=== PATIENT | female | born 1935 | race Caucasian/White ===

== ENCOUNTER → 2016-08-10 | Outpatient (CLI) | payer OTHER ==
[~2016-08-10] MED LIST: ADVIN50/60 INH; BENZ100C84 PO; CIPR-255 PO; DOXY100C PO; LEVA45AE INH; LEVO50TA PO; LORA-741 PO; MOME100A INH; PRED20TA PO
--- NOTE | 2016-08-10 15:01 | DIAGNOSTIC IMAGING REPORT ---
CHEST 2 VIEWS ROUTINE CLINICAL HISTORY: J20.9 Acute [id number] COMPARISON STUDY: 12/29/2013 FINDINGS: The cardiac and mediastinal contours are normal. There is no evidence of focal pulmonary consolidation. There is no evidence of failure. No pleural effusions are visualized.[ IMPRESSION: No active disease in the chest. Electronically signed by: Ben Espinoza M.D. 08/10/2016 2:58 PM Dictated Date/Time: 08/10/2016 2:58 PM
== END | disposition home or self-care (01) ==
LOC: C.RADBC 14:01
PROVIDERS: ATTEND Internal Medicine
DX: J20.9 Acute bronchitis, unspecified (principal)

== ENCOUNTER → 2016-09-07 | Outpatient (CLI) | payer OTHER ==
[2016-09-07 17:22] LABS: BASO % 0.5 %; BASO ABS # 0.03 K/uL (0-0.2); COMPLETE YES; EOS % 7.4 %; HEMATOCRIT 38.3 % (37-47); IG% 0.4 %; LYMPH % 22.1 %; LYMPH ABS # 1.26 K/uL (1.2-3.4); MEAN CELL VOLUME 90.1 fL (80-100); MEAN CORPUSCULAR HEMOGLOBIN 29.6 pg (25-34); MEAN CORPUSCULAR HGB CONC 32.9 g/dl (32-36); MEAN PLATELET VOLUME 10.4 fL (7.4-10.4); MONO % 10.9 %; NEUT % 58.7 %; PLATELET COUNT 264 K/uL (130-400); RED BLOOD COUNT 4.25 M/uL (4.2-5.4); WHITE BLOOD COUNT 5.69 K/uL (4.8-10.8)
[2016-09-07 18:16] LABS: BLOOD UREA NITROGEN 16 mg/dl (7-18); BUN/CREATININE RATIO 19.3 (10-20); CALCIUM 9.2 mg/dl (8.5-10.1); CARBON DIOXIDE 28 mmol/L (21-32); CHLORIDE 104 mmol/L (98-107); CREATININE 0.82 mg/dl (0.60-1.20); GLUCOSE 83 mg/dl (70-99); POTASSIUM 3.9 mmol/L (3.5-5.1); SODIUM 141 mmol/L (136-145)
== END | disposition home or self-care (01) ==
LOC: C.LABBC 15:33
PROVIDERS: ATTEND Internal Medicine
DX: R06.00 Dyspnea, unspecified (principal)

== ENCOUNTER → 2016-09-08 | Outpatient (CLI) | payer OTHER ==
[~2016-09-08] MED LIST changes: +OPTIRAY 320 IV PRN
--- NOTE | 2016-09-08 14:22 | DIAGNOSTIC IMAGING REPORT ---
CT ANGIOGRAM OF THE CHEST CLINICAL HISTORY: Cough and dyspnea. COMPARISON STUDY: Chest radiograph dated 08/10/2016. TECHNIQUE: Following the IV administration of 119 cc of Optiray 320, CT angiogram of the chest was performed from the upper abdomen to the thoracic inlet utilizing the pulmonary embolus protocol. Images are reviewed in the axial, sagittal, and coronal planes. 3-D MIPS images are created and assessed. IV contrast was administered without complication. The examination is moderately degraded by motion artifact. CT DOSE: 416.81 mGycm FINDINGS: Thyroid: Atrophic. Thoracic aorta: There is atherosclerotic calcification of the thoracic aorta, which is normal in caliber and demonstrates standard 3-vessel arch anatomy. No dissection is seen. Pulmonary vasculature: The pulmonary trunk is normal in caliber. There are no central filling defects identified in main, lobar, or proximal segmental pulmonary branches to suggest pulmonary embolus. Evaluation of the peripheral vessels is severely degraded by motion artifact. Heart: The heart is normal in size and configuration, and without pericardial effusion. Lungs and pleural spaces: Evaluation of the lung parenchyma is significantly degraded by respiratory motion artifact. Emphysema is noted. No airspace consolidation or pleural effusion is identified. The trachea and central airways appear clear. Mediastinum: There is no mediastinal lymphadenopathy. Rhonda: Clear. Axillae: There is no axillary lymphadenopathy. Upper abdomen: There is a small hiatal hernia. Partially visualized upper abdominal viscera is otherwise within normal limits. Skeletal structures: The skeletal structures are osteopenic. Degenerative change is present throughout the thoracic spine. No lytic or blastic bony lesions are seen. Soft tissues: The right breast is surgically absent. IMPRESSION: 1. Moderately motion degraded examination. 2. There is no evidence of central pulmonary embolus in the main, lobar, or proximal segmental pulmonary arteries. 3. Emphysema. 4. There is no airspace consolidation or pleural effusion. Electronically signed by: Eduard Hoffman M.D. 09/08/2016 2:21 PM Dictated Date/Time: 09/08/2016 2:17 PM
== END | disposition home or self-care (01) ==
LOC: C.CTS 13:43
PROVIDERS: ATTEND Internal Medicine
DX: R06.00 Dyspnea, unspecified (principal); R05 Cough

== ENCOUNTER 2016-09-14 17:09 | Emergency (ER) | payer OTHER ==
[~2016-09-14] VITALS: Ht 149.9 cm; Wt 65.0 kg
[~2016-09-14 17:09] MED LIST changes: -BENZ100C84 PO; -DOXY100C PO; -LEVA45AE INH; -MOME100A INH; -OPTIRAY 320 IV PRN; -PRED20TA PO
[2016-09-14 17:20] VITALS: TEMP 36.7; Ht 149.9 cm; Wt 65.0 kg
[2016-09-14] MEDS ORDERED: ALBUT/IPRATROP 3MG/0.5MG NEB 3 ML VIAL INH STA (17:49)
[2016-09-14] MEDS ORDERED: SODIUM CHLORIDE 0.9% 1000ML 1,000 ML IV STA (17:49)
[2016-09-14] MEDS ORDERED: METHYLPREDNISOLONE 125 MG VIAL IV STA (17:49)
[2016-09-14] MEDS ORDERED: BENZ100C84 PO (18:05)
[2016-09-14] MEDS ORDERED: LEVA45AE INH (18:05)
[2016-09-14] MEDS ORDERED: MOME100A INH (18:05)
[2016-09-14] MEDS ORDERED: LORA-741 PO (18:06)
--- NOTE | 2016-09-14 18:09 | EMERGENCY ROOM VISIT NOTE ---
History Report prepared by Radha: Yumiko Moore Under the Supervision of: Dr. Eduard Easton M.D. First contact with patient: 17:44 Chief Complaint: SHORTNESS OF BREATH Stated Complaint: SOB,BRONCHITIS,ASTHMA Nursing Triage Summary: I have asthma and bronchitis. I called the dr and they told me to come here. "I have been coughing a lot. it has been ongoing for the past several months" History of Present Illness The patient is a 81 year old female who presents to the Emergency Room with complaints of worsening shortness of breath over the past couple of months. Her shortness of breath is worsened with exertion. It seems to improve when she is outside in the cold air. She also complains of an occasionally productive persistent cough and central chest pain. The patient has followed up with her PCP and pulmonology since her symptoms began, but she has been getting progressively worse. She notes that she is able to hear herself wheezing. She has been on two different antibiotics, including Zithromax, as well as steroids since her symptoms began. She is not on an antibiotic or steroid currently. She did have some relief when she was on a steroid over a month ago. She has been given a Xopenex inhaler and Tessalon perles but they have not seemed to relieve her symptoms. She has been on maintenance inhalers for years prior to the onset of her current symptoms. She has also been using nebulizer treatments which do seem to help. The patient had a CBC and renal panel done on September 07 which were unremarkable. She had a CT chest on September 08 that did show some emphysema but no pneumonia or pulmonary emboli. Today she called her PCP and was referred to the ER. She is scheduled to see Dr. Shoemaker on September 22. Denies fever, leg swelling, or other complaints. She does not have a personal history of heart disease. She did have a flu shot this year. She has a history of COPD and asthma. She has never been a smoker. Source of History: patient Onset: a few months ago Position: other (global) Quality: other (shortness of breath) Timing: worsening Modifying Factors (Worsening): exertion Modifying Factors (Relieving): other (cold air,nebulizer) Associated Symptoms: + chest pain (central), + cough Review of Systems See HPI for pertinent positives & negatives. A total of 10 systems reviewed and were otherwise negative. Past Medical & Surgical Medical Problems: (1) Asthma (2) UTI (urinary tract infection) Family History Blood clots Cancer Diabetes mellitus Heart disease Social History Smoking Status: Never Smoker Alcohol Use: none Marital Status: Occupation Status: retired Current/Historical Medications Scheduled Benzonatate (Tessalon Perles), 100 MG PO Q8H Doxycycline Hyclate (Vibramycin), 100 MG PO BID Levothyroxine Sodium (Synthroid), 50 MCG PO DAILY Mometasone Furoate-Formoterol (Dulera 100/5 Mcg), 2 PUFFS INH BID Prednisone (Prednisone), 0 PO DAILY Scheduled PRN Levalbuterol Tartrate (Levalbuterol Tartrate Hfa), 2 PUFFS INH Q4 PRN for Wheezing Lorazepam (Ativan), 0.5 MG PO DAILY PRN for Anxiety Allergies Coded Allergies: Acetaminophen (Verified Allergy, Intermediate, 01/08/16) Physical Exam Vital Signs Date Time Temp Pulse Resp B/P Pulse Ox O2 Delivery O2 Flow Rate FiO2 09/14/16 19:48 96 20 168/89 96 09/14/16 19:08 96 20 168/89 96 Room Air 09/14/16 18:33 79 09/14/16 18:21 96 Room Air 09/14/16 17:22 98 Room Air 09/14/16 17:20 36.7 80 18 178/82 98 Room Air Physical Exam GENERAL: Patient is in no acute distress. HEENT: No acute trauma, normocephalic atraumatic, mucous membranes moist, no nasal congestion, no scleral icterus. NECK: No stridor, no adenopathy, no meningismus, trachea is midline. LUNGS: Wheezing bilaterally with diminished breath sounds, breath sounds are equal, dry cough is noted, no respiratory distress. HEART: Without murmurs gallops or rubs, regular rate and rhythm. ABDOMEN: Soft, nontender, bowel sounds positive, no hernias, no peritonitis. EXTREMITIES: No cyanosis or edema, full range of motion of all the joints without pain or difficulty, no signs for acute trauma. NEUROLOGIC: Oriented x 3, no acute motor or sensory deficits, no focal weakness. SKIN: No rash, no jaundice, no diaphoresis. Medical Decision & Procedures ER Provider Diagnostic Interpretation: Radiology results and stated below per my review and radiologist interpretation: TWO VIEW CHEST CLINICAL HISTORY: Dyspnea. FINDINGS: PA and lateral chest radiographs are compared to study dated 08/10/2016 and correlated with chest CT dated 09/08/16. The PA view is degraded by patient rotation. The cardiomediastinal silhouette is unremarkable. There is atherosclerotic calcification of the thoracic aorta. Emphysema and chronic interstitial thickening are similar to previous. Linear atelectasis versus scarring is noted in the left midlung. There is no airspace consolidation or pleural effusion. There is no pneumothorax. The skeletal structures are osteopenic. Degenerative change and scoliosis are noted in the thoracic spine bony thorax appears intact. IMPRESSION: Emphysema and chronic changes as above. There is no acute cardiopulmonary abnormality and there has been no significant change from recent prior studies. Electronically signed by: Eduard Hoffman M.D. 09/14/2016 7:05 PM Dictated Date/Time: 09/14/2016 7:03 PM Laboratory Results 09/14/16 18:35 Red Blood Count 4.42, Mean Corpuscular Volume 86.4, Mean Corpuscular Hemoglobin 29.2, Mean Corpuscular Hemoglobin Concent 33.8, Mean Platelet Volume 9.9, Neutrophils (%) (Auto) 50.2, Lymphocytes (%) (Auto) 29.3, Monocytes (%) (Auto) 8.7, Eosinophils (%) (Auto) 10.4, Basophils (%) (Auto) 0.9, Neutrophils # (Auto ) 3.29, Lymphocytes # (Auto) 1.92, Monocytes # (Auto) 0.57, Eosinophils # (Auto ) 0.68, Basophils # (Auto) 0.06 09/14/16 18:35 Test 09/14/16 18:12 09/14/16 18:35 Influenza Type A Antigen Neg for Influ A (NEG) Influenza Type B Antigen Neg for Influ B (NEG) White Blood Count 6.55 K/uL (4.8-10.8) Red Blood Count 4.42 M/uL (4.2-5.4) Hemoglobin 12.9 g/dL (12.0-16.0) Hematocrit 38.2 % (37-47) Mean Corpuscular Volume 86.4 fL (80-100) Mean Corpuscular Hemoglobin 29.2 pg (25-34) Mean Corpuscular Hemoglobin Concent 33.8 g/dl (32-36) Platelet Count 248 K/uL (130-400) Mean Platelet Volume 9.9 fL (7.4-10.4) Neutrophils (%) (Auto) 50.2 % Lymphocytes (%) (Auto) 29.3 % Monocytes (%) (Auto) 8.7 % Eosinophils (%) (Auto) 10.4 % Basophils (%) (Auto) 0.9 % Neutrophils # (Auto) 3.29 K/uL (1.4-6.5) Lymphocytes # (Auto) 1.92 K/uL (1.2-3.4) Monocytes # (Auto) 0.57 K/uL (0.11-0.59) Eosinophils # (Auto) 0.68 K/uL (0-0.5) Basophils # (Auto) 0.06 K/uL (0-0.2) RDW Standard Deviation 46.3 fL (36.4-46.3) RDW Coefficient of Variation 14.6 % (11.5-14.5) Immature Granulocyte % (Auto) 0.5 % Immature Granulocyte # (Auto) 0.03 K/uL (0.00-0.02) Anion Gap 12.0 mmol/L (3-11) Est Creatinine Clear Calc Drug Dose 48.6 ml/min Estimated GFR () 85.1 Estimated GFR (Non- 73.4 BUN/Creatinine Ratio 21.0 (10-20) Calcium Level 9.1 mg/dl (8.5-10.1) Troponin I < 0.015 ng/ml (0-0.045) Laboratory results reviewed by me. Medications Administered Medications (Trade) Dose Ordered Sig/Ovidio Route Start Time Stop Time Status Last Admin Dose Admin Sodium Chloride (Nss 1000ml) 1,000 ml @ 200 mls/hr Q5H STAT IV 09/14/16 17:49 09/14/16 20:02 DC 09/14/16 18:58 200 MLS/HR Methylprednisolone Sodium Succinate (Solu-Medrol IV) 60 mg NOW STAT IV 09/14/16 17:49 09/14/16 17:54 DC 09/14/16 18:58 60 MG Albuterol/ Ipratropium (Duoneb) 3 ml NOW STAT INH 09/14/16 17:49 09/14/16 17:54 DC 09/14/16 18:59 3 ML Doxycycline Hyclate (Vibramycin Cap) 100 mg ONE ONCE PO 09/14/16 19:15 09/14/16 19:16 DC 09/14/16 19:29 100 MG ECG Indication: SOB/dyspnea Rate (beats per minute): 76 Rhythm: normal sinus Findings: no acute ischemic change, no ectopy ED Course 1744: The patient was evaluated in room B5. A complete history and physical exam was performed. 1748: Ordered DuoNeb 3 ml INH, Solu-Medrol 60 mg IV, NSS 1000 ml @ 200 mls/hr IV. 1914: Ordered Vibramycin Cap 100 mg PO. 1919: Reevaluated the patient. She was feeling better. Discussed results and discharge instructions: She verbalized understanding and agreement. The patient is ready for discharge. Medical Decision Differentials include acute bronchitis, exacerbation of COPD, cardiac ischemia, pneumonia, CHF, PE, failed outpatient treatment. There is no leukocytosis or concerning anemia. No significant electrolyte abnormality or kidney failure. Influenza testing is negative. EKG shows a normal sinus rhythm with a rate of 76, no acute ischemia. Cardiac enzyme testing times one is not consistent with acute cardiac injury. Chest x-ray shows no pneumonia or CHF. Emphysema was noted. The patient was given a DuoNeb, she received IV saline. She was given oral doxycycline. The patient is not hypoxic, she is not febrile. She is being discharged on a prednisone taper, oral doxycycline, frequent bronchodilator use. She was encouraged to follow with her doctors office and return here for worsening symptoms. Impression Primary Impression: Acute bronchitis Additional Impression: COPD exacerbation Scribe Attestation The scribe's documentation has been prepared under my direction and personally reviewed by me in its entirety. I confirm that the note above accurately reflects all work, treatment, procedures, and medical decision making performed by me. Departure Information Dispostion Home / Self-Care Prescriptions Prednisone (Prednisone) 20 Mg Tab 0 PO DAILY, #18 TAB 3 DAILY FOR 3 DAYS, THEN 2 DAILY FOR 3 DAYS, THEN 1 DAILY FOR 3 DAYS. Prov: Eduard Easton M.D. 09/14/16 Doxycycline Hyclate (VIBRAMYCIN) 100 Mg Cap 100 MG PO BID for 10 Days, #20 CAP Prov: Eduard Easton M.D. 09/14/16 Referrals Jeffrey Pimentel M.D. (PCP) Patient Instructions My [facility] Additional Instructions fluids rest albuterol nebulizer or xopenex inhaler every 4 hours doxycycline 2x per day for 10 days prednisone as directed follow with micaela galindo this week return if symptoms worsen Problem Qualifiers
[2016-09-14 18:21] VITALS: O2SAT 96
[2016-09-14 18:50] LABS: BASO % 0.9 %; BASO ABS # 0.06 K/uL (0-0.2); COMPLETE YES; EOS % 10.4 %; HEMATOCRIT 38.2 % (37-47); IG% 0.5 %; LYMPH % 29.3 %; LYMPH ABS # 1.92 K/uL (1.2-3.4); MEAN CELL VOLUME 86.4 fL (80-100); MEAN CORPUSCULAR HEMOGLOBIN 29.2 pg (25-34); MEAN CORPUSCULAR HGB CONC 33.8 g/dl (32-36); MEAN PLATELET VOLUME 9.9 fL (7.4-10.4); MONO % 8.7 %; NEUT % 50.2 %; PLATELET COUNT 248 K/uL (130-400); RED BLOOD COUNT 4.42 M/uL (4.2-5.4); WHITE BLOOD COUNT 6.55 K/uL (4.8-10.8)
--- NOTE | 2016-09-14 19:06 | DIAGNOSTIC IMAGING REPORT ---
TWO VIEW CHEST CLINICAL HISTORY: Dyspnea. FINDINGS: PA and lateral chest radiographs are compared to study dated 08/10/2016 and correlated with chest CT dated 09/08/16. The PA view is degraded by patient rotation. The cardiomediastinal silhouette is unremarkable. There is atherosclerotic calcification of the thoracic aorta. Emphysema and chronic interstitial thickening are similar to previous. Linear atelectasis versus scarring is noted in the left midlung. There is no airspace consolidation or pleural effusion. There is no pneumothorax. The skeletal structures are osteopenic. Degenerative change and scoliosis are noted in the thoracic spine bony thorax appears intact. IMPRESSION: Emphysema and chronic changes as above. There is no acute cardiopulmonary abnormality and there has been no significant change from recent prior studies. Electronically signed by: Eduard Hoffman M.D. 09/14/2016 7:05 PM Dictated Date/Time: 09/14/2016 7:03 PM
[2016-09-14 19:07] LABS: BLOOD UREA NITROGEN 16 mg/dl (7-18); CALCIUM 9.1 mg/dl (8.5-10.1); CARBON DIOXIDE 24 mmol/L (21-32); CHLORIDE 104 mmol/L (98-107); CREATININE 0.77 mg/dl (0.60-1.20); GLUCOSE 80 mg/dl (70-99); SODIUM 140 mmol/L (136-145)
[2016-09-14] MEDS ORDERED: DOXYCYCLINE HYCLATE 100 MG CAP PO ONE (19:15)
[2016-09-14] MEDS ORDERED: DOXY100C PO (19:28)
[2016-09-14] MEDS ORDERED: PRED20TA PO (19:28)
[2016-09-14 19:48] VITALS: BP 168/89; PULSE 96; O2SAT 96
== END 2016-09-14 19:49 | disposition home or self-care (01) ==
LOC: C.EDB 17:10
DX: J44.1 Chronic obstructive pulmonary disease with (acute) exacerbation (principal); J45.909 Unspecified asthma, uncomplicated

== ENCOUNTER → 2016-10-09 | Outpatient (CLI) | payer OTHER ==
[~2016-10-09] MED LIST changes: -ADVIN50/60 INH; +BENZ100C84 PO; -CIPR-255 PO; +LEVA45AE INH; +MOME100A INH; +PRED20TA PO
--- NOTE | 2016-10-09 12:16 | DIAGNOSTIC IMAGING REPORT ---
CT SINUSES-MAXILLOFACIAL W/O CLINICAL HISTORY: Cough. Possible sinusitis. COMPARISON STUDY: None. TECHNIQUE: CT scan of the paranasal sinuses was performed in the axial plane. Coronal reconstructed images were obtained and reviewed. CT DOSE: 518.34 mGy.cm FINDINGS: No orbital masses are visualized. There is no hydrocephalus. There is mild mucosal thickening involving both maxillary sinuses. There is mild mucosal thickening within the sphenoid. There is minimal mucosal thickening within the ethmoid air cells. There is moderate mucosal thickening within hypoplastic frontal sinuses. There are no air-fluid levels identified. The right ostiomeatal unit appears patent. The infundibular and ostial portions left ostiomeatal unit are occluded. The mastoid air cells are symmetrically aerated. The middle ear cavities are well aerated. IMPRESSION: 1. No evidence of acute sinusitis 2. Mild pansinus mucosal thickening 3. The ostial and infundibular portions of the left ostiomeatal unit are occluded by soft tissue. Electronically signed by: Ben Espinoza M.D. 10/09/2016 12:15 PM Dictated Date/Time: 10/09/2016 12:12 PM
== END | disposition home or self-care (01) ==
LOC: C.CTS 11:55
PROVIDERS: ATTEND Internal Medicine
DX: R05 Cough (principal)

== ENCOUNTER → 2017-03-25 | Outpatient (CLI) | payer OTHER ==
[~2017-03-25] MED LIST changes: -PRED20TA PO
--- NOTE | 2017-03-26 16:08 | MAMMOGRAPHY REPORT ---
UNILATERAL LEFT DIGITAL SCREENING MAMMOGRAM TOMOSYNTHESIS WITH CAD: 03/25/2017 CLINICAL HISTORY: Routine screening. Patient has no complaints. TECHNIQUE: Breast tomosynthesis in addition to standard 2D mammography was performed. Current study was also evaluated with a Computer Aided Detection (CAD) system. Left CC and MLO 2-D and tomosynthes is images were obtained. COMPARISON: Comparison is made to exam dated: Outside prior mammograms dated 05/21/2014, 04/10/2013, , [facility] BREAST COMPOSITION: There are scattered areas of fibroglandular density in the left breast. FINDINGS: There are no suspicious masses, calcifications, or areas of architectural distortion noted within the left breast. There has been no significant interval change compared to prior exams. Sca ttered asymmetries and benign-appearing calcifications are stable. IMPRESSION: ACR BI-RADS CATEGORY 2: BENIGN There is no mammographic evidence of malignancy in the left breast. A 1 year screening mammogram is r ecommended. The patient will receive written notification of the results. Approximately 10% of breast cancers are not detected with mammography. A negative mammographic report should not delay biopsy if a clinically suggestive mass is present. Yara Garcia M.D. ah/:03/26/2017 13:47:07 Supervisor [employer]: Peg JOHNSON(Sven)(Flora)([place]), [facility] letter sent: Normal 1/2 BI-RADS Code: ACR BI-RADS Category 2: Benign
== END | disposition home or self-care (01) ==
LOC: C.MAMM 13:27
PROVIDERS: ATTEND Internal Medicine
DX: Z12.31 Encounter for screening mammogram for malignant neoplasm of breast (principal); Z90.11 Acquired absence of right breast and nipple

== ENCOUNTER → 2017-04-09 | Outpatient (CLI) | payer OTHER | END | disposition home or self-care (01) | LOC: C.LABBC 13:14 | PROVIDERS: ATTEND Nurse Practitioner Family | DX: N39.46 Mixed incontinence (principal); N39.0 Urinary tract infection, site not specified ==

== ENCOUNTER 2017-05-24 10:04 | Emergency (ER) | payer OTHER ==
[~2017-05-24] VITALS: Ht 149.9 cm; Wt 64.8 kg
[2017-05-24 10:08] VITALS: TEMP 36.9
[2017-05-24] MEDS ORDERED: SODIUM CHLORIDE 0.9% 1000ML 1,000 ML IV STA (10:42)
[2017-05-24] MEDS ORDERED: LEVAQUIN 750MG / 150ML D5W IV STA (10:42)
[2017-05-24] MEDS ORDERED: ALBUT/IPRATROP 3MG/0.5MG NEB 3 ML VIAL INH STA (10:42)
--- NOTE | 2017-05-24 11:10 | DIAGNOSTIC IMAGING REPORT ---
CHEST ONE VIEW PORTABLE HISTORY: 82 years-old Female EVALUATE RESPIRATORY DISTRESS.DYSPNEA acute respiratory distress COMPARISON: Chest radiograph 09/14/2016 TECHNIQUE: Portable upright AP view of the chest FINDINGS: Cardiac silhouette is within normal limits. There is atherosclerosis of the aorta. Linear subsegmental lateral left midlung opacity is unchanged suggesting atelectasis or scarring. Emphysema with chronic background interstitial coarsening redemonstrated. No pneumothorax, pleural effusion, focal airspace consolidation or overt pulmonary edema. Bones are grossly intact. IMPRESSION: Emphysema and chronic changes without acute cardiopulmonary process. The above report was generated using voice recognition software. It may contain grammatical, syntax or spelling errors. Electronically signed by: Akbar Hurst M.D. 05/24/2017 11:09 AM Dictated Date/Time: 05/24/2017 11:05 AM
[2017-05-24 11:13] LABS: BASO % 0.6 %; BASO ABS # 0.04 K/uL (0-0.2); COMPLETE YES; EOS % 6.7 %; HEMATOCRIT 35.4 % (37-47); IG% 0.3 %; LYMPH % 10.1 %; LYMPH ABS # 0.63 K/uL (1.2-3.4); MEAN CELL VOLUME 88.1 fL (80-100); MEAN CORPUSCULAR HEMOGLOBIN 29.4 pg (25-34); MEAN CORPUSCULAR HGB CONC 33.3 g/dl (32-36); MEAN PLATELET VOLUME 9.5 fL (7.4-10.4); NEUT % 74.3 %; PLATELET COUNT 225 K/uL (130-400); RED BLOOD COUNT 4.02 M/uL (4.2-5.4); WHITE BLOOD COUNT 6.25 K/uL (4.8-10.8)
[2017-05-24 11:19] VITALS: O2SAT 96; Ht 149.9 cm; Wt 64.8 kg
[2017-05-24 11:20] LABS: PARTIAL THROMBOPLASTIN RATIO 1.1; PROTHROMBIN TIME (PATIENT) 10.9 SECONDS (9.0-12.0)
[2017-05-24 11:22] LABS: ALT/SGPT 24 U/L (12-78); BLOOD UREA NITROGEN 14 mg/dl (7-18); BUN/CREATININE RATIO 17.8 (10-20); CALCIUM 9.4 mg/dl (8.5-10.1); CARBON DIOXIDE 28 mmol/L (21-32); CHLORIDE 102 mmol/L (98-107); CREATININE 0.78 mg/dl (0.60-1.20); GLUCOSE 88 mg/dl (70-99); POTASSIUM 3.8 mmol/L (3.5-5.1); SODIUM 137 mmol/L (136-145)
[2017-05-24 11:28] LABS: ALB/GLOB RATIO 1.1 (0.9-2); ALKALINE PHOSPHATASE 107 U/L (45-117); AST/SGOT 24 U/L (15-37)
[2017-05-24] MEDS ORDERED: MOME200A INH (12:00)
[2017-05-24] MEDS ORDERED: XPNINS INH (12:00)
[2017-05-24] MEDS ORDERED: LEVA45AE INH (12:00)
[2017-05-24] MEDS ORDERED: VITACAP26 PO (12:00)
[2017-05-24] MEDS ORDERED: MULT-506 PO (12:00)
[2017-05-24] MEDS ORDERED: BENZONATATE 100MG CAP PO ONE (12:45)
[2017-05-24] MEDS ORDERED: BENZ100C18 PO (12:48)
[2017-05-24] MEDS ORDERED: PRED-603 PEG (12:48)
[2017-05-24] MEDS ORDERED: LEVO-366 PO (12:48)
[2017-05-24 13:07] VITALS: BP 137/73; PULSE 85; O2SAT 96
--- NOTE | 2017-05-24 16:50 | EMERGENCY ROOM VISIT NOTE ---
History Report prepared by Radha: Yusuf Kent Under the Supervision of: Dr. Brendan Bhat D.O. First contact with patient: 10:29 Chief Complaint: RESPIRATORY PROBLEMS Stated Complaint: ASTHMA, DIFFICULTY BREATHING Nursing Triage Summary: Pt reports difficulty breathing for a couple weeks, worse since the weekend. Sinus congestion. Cough of yellow. Fever. Using ibuprofen, neb without relief. Hx of asthma. History of Present Illness The patient is a 82 year old female who presents to the Emergency Room with complaints of a persistent cough beginning three days ago. Her cough produces a yellow sputum. She notes "I always have a cough, but now it is worse". She has a history of COPD and asthma. The patient's symptoms began with a runny nose two weeks ago. She also complains of sinus congestion, SOB and fever of 101 degrees. She notes that she took her temperature with an unused rectal thermometer orally. The patient vomited two days ago and has not vomited again since. She denies diarrhea or chest pain. Source of History: patient Onset: Three days ago Quality: other (productive cough) Timing: other (persistent) Associated Symptoms: + fevers (101 degrees), + SOB, + vomiting, No chest pain, No diarrhea Note: Additional symptoms: runny nose and sinus congestion. Review of Systems See HPI for pertinent positives & negatives. A total of 10 systems reviewed and were otherwise negative. Past Medical & Surgical Medical Problems: (1) Asthma (2) UTI (urinary tract infection) Family History Blood clots Cancer Diabetes mellitus Heart disease Social History Smoking Status: Never Smoker Alcohol Use: none Marital Status: Occupation Status: retired Current/Historical Medications Scheduled Benzonatate (Tessalon Perles), 100 MG PO TID Levofloxacin (Levaquin), 500 MG PO DAILY Levothyroxine Sodium (Synthroid), 50 MCG PO DAILY Mometasone Furoate-Formoterol (Dulera 200/5 Mcg), 2 PUFFS INH BID Multivitamin (Multivitamin), 1 TAB PO DAILY Prednisone (Deltasone), 20 MG PEG DAILY Vitamins C & E (Vitamin C), 1 CAP PO DAILY Scheduled PRN Levalbuterol (Levalbuterol HCl), 1 VIAL INH Q4H PRN for SOB/Wheezing Levalbuterol Tartrate (Levalbuterol Tartrate Hfa), 2 PUFFS INH Q4H PRN for SOB/ Wheezing Lorazepam (Ativan), 0.5 MG PO DAILY PRN for Anxiety Allergies Coded Allergies: Acetaminophen (Verified Allergy, Intermediate, 01/08/16) Physical Exam Vital Signs Date Time Temp Pulse Resp B/P (MAP) Pulse Ox O2 Delivery O2 Flow Rate FiO2 05/24/17 13:07 85 20 137/73 96 05/24/17 12:30 87 18 154/89 97 Room Air 05/24/17 11:19 96 Room Air 05/24/17 11:08 87 05/24/17 11:05 81 16 145/67 97 05/24/17 11:05 97 Room Air 05/24/17 10:08 36.9 82 20 165/71 96 Room Air Physical Exam GENERAL: Sitting up in bed, productive cough noted, alert, well appearing, well nourished, no distress, non-toxic EYE EXAM: normal conjunctiva, PERRL and EOM's grossly intact OROPHARYNX: no exudate, no erythema, lips, buccal mucosa, and tongue normal and mucous membranes are moist NECK: supple, no nuchal rigidity, no adenopathy, non-tender. No JVD. LUNGS: Clear to auscultation. Normal chest wall mechanics HEART: no murmurs, S1 normal and S2 normal ABDOMEN: abdomen soft, non-tender, normo-active bowel sounds, no masses, no rebound or guarding. BACK: Back is symmetrical on inspection and there is no deformity, no midline tenderness, no CVA tenderness. SKIN: no rashes and no bruising UPPER EXTREMITIES: upper extremities are grossly normal. LOWER EXTREMITIES: No pitting edema. Calves are equal bilaterally. Right anterior drummond with erythema which is tender to palpation. 4 by 3 inches with scratch lozano. NEURO EXAM: Normal sensorium, cranial nerves II-XII grossly intact, normal speech, no gross weakness of arms, no gross weakness of legs. Medical Decision & Procedures ER Provider Diagnostic Interpretation: Radiology results as stated below per my review and the radiologist's interpretation: CHEST ONE VIEW PORTABLE FINDINGS: Cardiac silhouette is within normal limits. There is atherosclerosis of the aorta. Linear subsegmental lateral left midlung opacity is unchanged suggesting atelectasis or scarring. Emphysema with chronic background interstitial coarsening redemonstrated. No pneumothorax, pleural effusion, focal airspace consolidation or overt pulmonary edema. Bones are grossly intact. IMPRESSION: Emphysema and chronic changes without acute cardiopulmonary process. The above report was generated using voice recognition software. It may contain grammatical, syntax or spelling errors. Electronically signed by: Akbar Hurst M.D. 05/24/2017 11:09 AM Laboratory Results 05/24/17 10:51 Red Blood Count 4.02, Mean Corpuscular Volume 88.1, Mean Corpuscular Hemoglobin 29.4, Mean Corpuscular Hemoglobin Concent 33.3, Mean Platelet Volume 9.5, Neutrophils (%) (Auto) 74.3, Lymphocytes (%) (Auto) 10.1, Monocytes (%) (Auto) 8.0, Eosinophils (%) (Auto) 6.7, Basophils (%) (Auto) 0.6, Neutrophils # (Auto) 4.64, Lymphocytes # (Auto) 0.63, Monocytes # (Auto) 0.50, Eosinophils # (Auto) 0.42, Basophils # (Auto) 0.04 05/24/17 10:51 Test 05/24/17 10:51 05/24/17 11:25 White Blood Count 6.25 K/uL (4.8-10.8) Red Blood Count 4.02 M/uL (4.2-5.4) Hemoglobin 11.8 g/dL (12.0-16.0) Hematocrit 35.4 % (37-47) Mean Corpuscular Volume 88.1 fL (80-100) Mean Corpuscular Hemoglobin 29.4 pg (25-34) Mean Corpuscular Hemoglobin Concent 33.3 g/dl (32-36) Platelet Count 225 K/uL (130-400) Mean Platelet Volume 9.5 fL (7.4-10.4) Neutrophils (%) (Auto) 74.3 % Lymphocytes (%) (Auto) 10.1 % Monocytes (%) (Auto) 8.0 % Eosinophils (%) (Auto) 6.7 % Basophils (%) (Auto) 0.6 % Neutrophils # (Auto) 4.64 K/uL (1.4-6.5) Lymphocytes # (Auto) 0.63 K/uL (1.2-3.4) Monocytes # (Auto) 0.50 K/uL (0.11-0.59) Eosinophils # (Auto) 0.42 K/uL (0-0.5) Basophils # (Auto) 0.04 K/uL (0-0.2) RDW Standard Deviation 46.7 fL (36.4-46.3) RDW Coefficient of Variation 14.5 % (11.5-14.5) Immature Granulocyte % (Auto) 0.3 % Immature Granulocyte # (Auto) 0.02 K/uL (0.00-0.02) Prothrombin Time 10.9 SECONDS (9.0-12.0) Prothromb Time International Ratio 1.0 (0.9-1.1) Activated Partial Thromboplast Time 29.4 SECONDS (21.0-31.0) Partial Thromboplastin Ratio 1.1 Anion Gap 7.0 mmol/L (3-11) Est Creatinine Clear Calc Drug Dose 47.1 ml/min Estimated GFR () 83.2 Estimated GFR (Non- 71.8 BUN/Creatinine Ratio 17.8 (10-20) Calcium Level 9.4 mg/dl (8.5-10.1) Total Bilirubin 0.5 mg/dl (0.2-1) Aspartate Amino Transf (AST/SGOT) 24 U/L (15-37) Alanine Aminotransferase (ALT/SGPT) 24 U/L (12-78) Alkaline Phosphatase 107 U/L (45-117) Troponin I < 0.015 ng/ml (0-0.045) Total Protein 6.6 gm/dl (6.4-8.2) Albumin 3.5 gm/dl (3.4-5.0) Globulin 3.1 gm/dl (2.5-4.0) Albumin/Globulin Ratio 1.1 (0.9-2) Influenza Type A Antigen Neg for Influ A (NEG) Influenza Type B Antigen Neg for Influ B (NEG) Laboratory results per my review. Medications Administered Medications (Trade) Dose Ordered Sig/Ovidio Route Start Time Stop Time Status Last Admin Dose Admin Albuterol/ Ipratropium (Duoneb) 3 ml NOW STAT INH 05/24/17 10:42 05/24/17 10:44 DC 05/24/17 11:21 3 ML Levofloxacin (Levaquin / D5W) 750 mg NOW STAT IV 05/24/17 10:42 05/24/17 10:44 DC 05/24/17 11:24 750 MG Sodium Chloride 1,000 ml @ 999 mls/hr Q1H1M STAT IV 05/24/17 10:42 05/24/17 11:42 DC 05/24/17 11:24 999 MLS/HR Prednisone (PredniSONE TAB) 40 mg NOW STAT PO 05/24/17 10:43 05/24/17 10:44 DC 05/24/17 11:22 40 MG Benzonatate (Tessalon Perles Cap) 100 mg NOW ONCE PO 05/24/17 12:45 05/24/17 12:46 DC 05/24/17 13:04 100 MG ECG Indication: SOB/dyspnea Rate (beats per minute): 82 Rhythm: sinus rhythm Findings: 1st degree AV block, no ectopy, other (LAD) ED Course ED COURSE: Vital signs were reviewed and showed hypertension The patients medical record was reviewed The above diagnostic studies were performed and reviewed. ED treatments and interventions as stated above. 1035: The patient was evaluated in room B6. A complete history and physical examination was performed. 1042: Ordered Sodium Chloride 1000 ml @ 999 mls/hr IV, Levaquin /D5W 750 mg IV, DuoNeb 3 mL INH, Prednisone Tab 40 mg PO. 1140: I reassessed the patient. She would like to go home now. After discussion , she agreed to receiving her antibiotics first. 1245: Ordered Tessalon Perles 100 mg PO. 1248: Upon reevaluation, the patient is resting comfortably. I discussed my findings with the patient and she understands and agrees with the treatment plan. Based on the patients age, coexisting illnesses, exam and lab findings the decision to treat as an outpatient was made. The patient remained stable while under my care. The patient appeared well at the time of discharge. Medical Decision Differential diagnoses includes but is not limited to pneumonia, bronchitis, COPD/Asthma exacerbation, pneumothorax, pulmonary embolism, congestive heart failure, acute coronary syndrome. Patient is an 82-year-old female who presents to ER with a yellow productive cough and sinus congestion. She does admit to having a temperature last night of 101. She also complains of a runny nose. She has a history of Asthma. She did have vomiting and diarrhea Wednesday which has completely resolved. CBC all BMP, LFTs, bilirubin and troponin were unremarkable. She denies any chest pain. INR was unremarkable. Flu was negative. Chest x-ray shows no focal infiltrate. Based on her symptoms she was treated as a bronchitis. Patient requested discharge on multiple occasions. She was feeling significantly better following steroids, antibiotics, fluids and no treatment. She was discharged follow-up with PCP. EKG was unremarkable. Discussed with Pt concerning signs and symptoms to watch out for. Pt was instructed to follow up with their PCP and discussed with the patient their option to return to the ED at anytime for persistent or worsening symptoms. The appropriate anticipatory guidance and out-patient management, including indications for return to the emergency department, were explained at length to the patient and understood. Medication Reconcilliation Current Medication List: was personally reviewed by me Blood Pressure Screening Patient's blood pressure: Elevated blood pressure Blood pressure disposition: Referred to PCP Impression Primary Impression: Bronchitis Additional Impression: Asthma exacerbation Scribe Attestation The scribe's documentation has been prepared under my direction and personally reviewed by me in its entirety. I confirm that the note above accurately reflects all work, treatment, procedures, and medical decision making performed by me. Departure Information Dispostion Home / Self-Care Prescriptions Prednisone (Deltasone) 20 Mg Tab 20 MG PEG DAILY for 5 Days Prov: Brendan Bhta, DO 05/24/17 Levofloxacin (Levaquin) 500 Mg Tab 500 MG PO DAILY for 9 Days, TAB Prov: Brendan Bhat, DO 05/24/17 Benzonatate (TESSALON PERLES) 100 Mg Cap 100 MG PO TID, #30 CAP Prov: Brendan Bhat, DO 05/24/17 Referrals Jeffrey Pimentel M.D. (PCP) Forms HOME CARE DOCUMENTATION FORM, IMPORTANT VISIT INFORMATION, WORK / SCHOOL INSTRUCTIONS Patient Instructions ED Bronchitis Asthmatic, My [facility] Additional Instructions Please follow up with your primary care doctor with in the next 24 hours. Any worsening of your symptoms, please return to the ED immediately. This includes any fevers greater than 100.4, worsening pain, chest pain, shortness breath, persistent nausea, vomiting, unable to eat or drink, or any other concerning signs or symptoms from your standpoint. Please take the prescription for antibiotics. Please take Tessalon Perles as needed for coughing. Please take steroids as prescribed. Problem Qualifiers Additional Impression: Asthma exacerbation Asthma severity: unspecified severity Asthma persistence: unspecified Qualified Codes: J45.901 - Unspecified asthma with (acute) exacerbation
== END 2017-05-24 13:08 | disposition home or self-care (01) ==
LOC: C.EDB 10:05
DX: J45.901 Unspecified asthma with (acute) exacerbation (principal); J40 Bronchitis, not specified as acute or chronic; I44.0 Atrioventricular block, first degree; Z87.440 Personal history of urinary (tract) infections; Z79.899 Other long term (current) drug therapy; Z88.6 Allergy status to analgesic agent; Z80.9 Family history of malignant neoplasm, unspecified; Z83.3 Family history of diabetes mellitus; Z82.49 Family history of ischemic heart disease and other diseases of the circulatory system; Z83.2 Family history of diseases of the blood and blood-forming organs and certain disorders involving the immune mechanism

== ENCOUNTER 2017-09-18 09:51 | Emergency (ER) | payer OTHER ==
[~2017-09-18 09:51] MED LIST changes: -BENZ100C84 PO; -MOME100A INH; +MOME200A INH; +MULT-506 PO; +PRED-603 PEG; +VITACAP26 PO; +XPNINS INH
[2017-09-18 09:53] VITALS: TEMP 36.7; Ht 152.4 cm
[2017-09-18] MEDS ORDERED: ONDANSETRON INJ 2 MG/ML 2 ML VIAL IV STA (10:14)
[2017-09-18] MEDS ORDERED: MoRPHine SULFATE 4 MG/ML 1 ML CARP\\VIAL IV STA (10:14)
--- NOTE | 2017-09-18 10:23 | EMERGENCY ROOM VISIT NOTE ---
ED Visit Note First contact with patient: 10:00 I have seen and examined this patient with Jean Nevarez and generally agree with the treatment plan as discussed. Current/Historical Medications Scheduled Levothyroxine Sodium (Synthroid), 50 MCG PO DAILY Mometasone Furoate-Formoterol (Dulera 200/5 Mcg), 2 PUFFS INH BID Multivitamin (Multivitamin), 1 TAB PO DAILY Prednisone (Deltasone), 20 MG PEG DAILY Vitamins C & E (Vitamin C), 1 CAP PO DAILY Scheduled PRN Levalbuterol (Levalbuterol HCl), 1 VIAL INH Q4H PRN for SOB/Wheezing Levalbuterol Tartrate (Levalbuterol Tartrate Hfa), 2 PUFFS INH Q4H PRN for SOB/ Wheezing Lorazepam (Ativan), 0.5 MG PO DAILY PRN for Anxiety Allergies Coded Allergies: Acetaminophen (Verified Allergy, Intermediate, 01/08/16) Vital Signs Date Time Temp Pulse Resp B/P (MAP) Pulse Ox O2 Delivery O2 Flow Rate FiO2 09/18/17 10:04 19 09/18/17 09:53 36.7 88 18 205/84 98 Laboratory Results Test 09/18/17 10:08 Departure Information Referrals Jeffrey Pimentel M.D. (PCP) Patient Instructions My [facility]
[2017-09-18 11:07] LABS: BASO % 0.5 %; BASO ABS # 0.04 K/uL (0-0.2); EOS % 4.4 %; EOS ABS # 0.38 K/uL (0-0.5); HEMATOCRIT 37.2 % (37-47); HEMOGLOBIN 12.6 g/dL (12.0-16.0); IG# 0.03 K/uL (0.00-0.02); LYMPH % 14.9 %; LYMPH ABS # 1.29 K/uL (1.2-3.4); MEAN CELL VOLUME 86.1 fL (80-100); MEAN CORPUSCULAR HEMOGLOBIN 29.2 pg (25-34); MEAN CORPUSCULAR HGB CONC 33.9 g/dl (32-36); MEAN PLATELET VOLUME 9.7 fL (7.4-10.4); MONO % 5.7 %; MONO ABS # 0.49 K/uL (0.11-0.59); NEUT % 74.2 %; PLATELET COUNT 239 K/uL (130-400); RED CELL DISTRIBUTION WIDTH CV 14.9 % (11.5-14.5); RED CELL DISTRIBUTION WIDTH SD 46.9 fL (36.4-46.3); WHITE BLOOD COUNT 8.63 K/uL (4.8-10.8)
--- NOTE | 2017-09-18 11:08 | DIAGNOSTIC IMAGING REPORT ---
HEAD CT NONCONTRAST CT DOSE: HISTORY: fall, head injury TECHNIQUE: Multiaxial CT images of the head were performed without the use of intravenous contrast. Automated exposure control was utilized for this study. A dose lowering technique was utilized adhering to the principles of ALARA. Comparison: Head CT 12/31/2009. Findings: The paranasal sinuses and mastoid air cells are clear. The calvarium and skull base are intact. There is no mass, hematoma, midline shift, acute infarct. White matter hypodensity is nonspecific but suggestive of microvascular ischemic change. The ventricles and sulci demonstrate mild age-related involutional changes. Posterior scalp hematoma. Impression: No acute intracranial abnormality. Atrophy and microvascular ischemic changes. Posterior scalp hematoma. Electronically signed by: Fracisco Barrios M.D. 09/18/2017 11:07 AM Dictated Date/Time: 09/18/2017 11:02 AM
[2017-09-18] MEDS ORDERED: ASCA500 PO (11:09)
--- NOTE | 2017-09-18 11:14 | DIAGNOSTIC IMAGING REPORT ---
MAXILLOFACIAL CT CT DOSE: HISTORY: fall, Left mandible pain TECHNIQUE: Multiaxial CT images of the maxillofacial region were performed and reformatted in the coronal plane without the use of contrast. A dose lowering technique was utilized adhering to the principles of ALARA. COMPARISON: Sinus CT 10/09/2016. FINDINGS: The visualized cervical spine, skull base, pterygoid plates, nasal bones, lamina papyracea, orbital floors, mandible, and zygomatic arches are intact. No fractures. The orbits are unremarkable. Mild mucosal thickening within the maxillary sinuses. IMPRESSION: No fractures within the maxillofacial region. Electronically signed by: Fracisco Barrios M.D. 09/18/2017 11:12 AM Dictated Date/Time: 09/18/2017 11:07 AM
--- NOTE | 2017-09-18 11:28 | DIAGNOSTIC IMAGING REPORT ---
CERVICAL, THORACIC, LUMBAR SPINE CT CT DOSE: 2596.01 mGy.cm HISTORY: Back pain. fall, neck pain TECHNIQUE: Multiaxial CT images of the cervical spine, thoracic, and lumbar were performed and reformatted in the sagittal and coronal plane without the use of contrast. A dose lowering technique was utilized adhering to the principles of ALARA. COMPARISON: None. FINDINGS: Cervical spine: No fractures within the cervical spine. Moderate disc space narrowing at C5-C6. Mild disc space narrowing at C3-C4 and C4-C5. There is 2 mm of anterolisthesis of C4 on C5 and C6 on C7. The bilateral C4-C5 facets are fused. Prevertebral soft tissues and the C1-C2 interval are intact. Mild reversal of the normal lordotic curvature. No pneumothorax. Thoracic spine: No fracture or subluxation within the thoracic spine. Mild dextroscoliosis. The T7-T8 vertebral bodies are fused. Mild degenerative disc disease throughout the thoracic spine. Paraspinal soft tissues are unremarkable. Lumbar spine: Mild levoscoliosis. Right-sided nephrolithiasis. No hydronephrosis. Paraspinal soft tissues are unremarkable. No fracture or subluxation. Moderate disc space narrowing at L1-L2. Mild disc space narrowing at L3-L4. Severe disc space narrowing at L2-L3 and L4-L5. Moderate to severe central canal narrowing throughout the majority of the cervical spine. The sacrum appears intact. L5 demonstrates partial sacralization with pseudoarthrosis of the bilateral transverse processes with the sacrum. IMPRESSION: 1. No fractures identified within the cervical, thoracic, lumbar spine. 2. Degenerative changes as described above. 3. Right-sided nephrolithiasis. No hydronephrosis. 4. Mild S-shaped scoliosis of the thoracolumbar spine. Electronically signed by: Fracisco Barrios M.D. 09/18/2017 11:26 AM Dictated Date/Time: 09/18/2017 11:12 AM
--- NOTE | 2017-09-18 11:29 | DIAGNOSTIC IMAGING REPORT ---
RIGHT SHOULDER 3 VIEWS HISTORY: right shoulder pain COMPARISON: None. FINDINGS: No fracture or dislocation within the right shoulder. The right clavicle is intact. Mild AC joint arthrosis. Mild osteoarthritis at the glenohumeral joint. Soft tissues are unremarkable. No radiopaque foreign bodies. IMPRESSION: No fracture or dislocation within the right shoulder. Electronically signed by: Fracisco Barrios M.D. 09/18/2017 11:28 AM Dictated Date/Time: 09/18/2017 11:27 AM
[2017-09-18 11:31] LABS: BLOOD UREA NITROGEN 17 mg/dl (7-18); CARBON DIOXIDE 26 mmol/L (21-32); CREATININE 0.87 mg/dl (0.60-1.20); GLUCOSE 99 mg/dl (70-99); POTASSIUM 3.9 mmol/L (3.5-5.1); SODIUM 140 mmol/L (136-145)
[2017-09-18] MEDS ORDERED: XYLOCAINE 1%/SOD BICARB 20 ML VIAL INFIL ONE (11:45)
[2017-09-18 12:14] VITALS: BP 167/80; PULSE 70; O2SAT 97
--- NOTE | 2017-09-18 17:10 | EMERGENCY ROOM VISIT NOTE ---
History First contact with patient: 10:00 Chief Complaint: HEAD INJURY (MINOR) Stated Complaint: HEAD INJURY,NECK PAIN History of Present Illness The patient is a 82 year old white female who presents to the Emergency Room with complaints of posterior head pain, neck pain, spinal pain, right shoulder pain, and left jaw pain after slipping on some ice this morning and falling onto her back. She was walking outside of her home when she slipped. She is unsure if there was loss of consciousness. She believes she may have been out for a second. She has been ambulatory. Bleeding from her scalp was controlled with pressure. She is nauseated. No chest pain or shortness of breath. Her family accompanies her today. No prior history of significant neck or head injury. [id number]. Review of Systems REVIEW OF SYSTEM: HEENT: No dizziness, visual problems, or tinnitus. There is no difficulty swallowing and no oral lesions are present. LYMPH: No adenopathy. PULMONARY: No cough, shortness of breath, sputum production or hemoptysis. CARDIOVASCULAR: No chest pain, palpitations, shortness of breath or peripheral edema. GASTROINTESTINAL: No diarrhea, constipation, vomiting, or abdominal pain. GENITOURINARY: No dysuria, frequency, urgency or nocturia. NEUROLOGIC: No weakness, muscle tenderness, epilepsy or history of neurological problems. No history of chronic headaches. MUSCULOSKELETAL: No history of joint tenderness/swelling. Positive history of arthritis and arthralgias. SKIN: No rashes or lesions. PSYCHIATRIC: No history of depression or mental illness. ENDOCRINE: No history of diabetes, thyroid disorders, or abnormal hair growth. Past Medical/Surgical History Medical Problems: (1) Asthma (2) UTI (urinary tract infection) Family History Blood clots Cancer Diabetes mellitus Heart disease Social History Smoking Status: Never Smoker Smokeless Tobacco Use: No Alcohol Use: none Marital Status: Housing Status: lives with family Occupation Status: retired Current/Historical Medications Scheduled Ascorbic Acid (Vitamin C), Unknown Dose PO DAILY Levothyroxine Sodium (Synthroid), 50 MCG PO DAILY Mometasone Furoate-Formoterol (Dulera 200/5 Mcg), 2 PUFFS INH BID Multivitamin (Multivitamin), 1 TAB PO DAILY Scheduled PRN Levalbuterol (Levalbuterol HCl), 1 VIAL INH Q4H PRN for SOB/Wheezing Levalbuterol Tartrate (Levalbuterol Tartrate Hfa), 2 PUFFS INH Q4H PRN for SOB/ Wheezing Lorazepam (Ativan), 0.5 MG PO DAILY PRN for Anxiety Physical Exam Vital Signs Date Time Temp Pulse Resp B/P (MAP) Pulse Ox O2 Delivery O2 Flow Rate FiO2 09/18/17 12:14 70 18 167/80 97 Room Air 09/18/17 11:02 73 19 156/102 95 Room Air 09/18/17 10:04 19 09/18/17 09:53 36.7 88 18 205/84 98 Physical Exam Gen.: Well-developed, well-nourished, elderly white female, in no acute distress. Laying on a bed. Alert and oriented. Skin:Warm and dry with good turgor. No rashes. Small laceration measuring 6 mm present on her posterior scalp. Bleeding is controlled. No foreign material is visible. No ecchymosis or erythema. The patient is not diaphoretic. No abrasions. HEENT: Normocephalic. Eyes PERRLA, EOMI. No conjunctiva or scleral injection. Ears TMs intact bilaterally with good light reflexes. No erythema or bulging. No hemotympanum. Canals are patent. Hearing aids were in place, but were removed. Nares patent bilaterally without turbinate enlargement. No significant drainage. No epistaxis. Oropharynx without erythema or exudate. Uvula midline, oral mucosa moist. No lesions present. Focal pain with palpation over the left masseter muscle and left mandible. No palpable step- off or deformity. Teeth align normally with gritting. Heart: Heart RRR. No MGR. Peripheral pulses are 2+. Lungs: Lungs are clear to auscultation. No crackles rhonchi or wheezing. Good air movement. The patient is able to take a deep breath. Abdomen: Abdomen was inspected, auscultated, and palpated. Bowel sounds present x 4. Soft, nontender to palpation. No hepato-splenomegaly. No masses noted. No rebound. No CVA tenderness. Musculoskeletal: She has diffuse discomfort with palpation over her cervical, thoracic, and lumbar spine. No focal discomfort. She has discomfort with palpation over her glenohumeral joint of the right shoulder. Limited motion secondary to pain. Full motion of her elbow and wrist. No palpable crepitus with motion of her shoulder. Supple motion of her hips, knees, and ankles. Neurologic: Cranial nerves II through XII are intact. Gross sensation is intact across the upper and lower extremities by soft touch. Medical Decision & Procedures ER Provider Diagnostic Interpretation: CT scan imaging of her head, facial bones, cervical spine, thoracic spine, and lumbar spine were all obtained. These were all read by radiology and reviewed by me. No evidence of fracture with any of these films. She does have arthritic change within her spine. Radiographic imaging of her right shoulder shows arthritic change but no acute fracture or dislocation. Laboratory Results 09/18/17 10:49 Red Blood Count 4.32, Mean Corpuscular Volume 86.1, Mean Corpuscular Hemoglobin 29.2, Mean Corpuscular Hemoglobin Concent 33.9, Mean Platelet Volume 9.7, Neutrophils (%) (Auto) 74.2, Lymphocytes (%) (Auto) 14.9, Monocytes (%) (Auto) 5.7, Eosinophils (%) (Auto) 4.4, Basophils (%) (Auto) 0.5, Neutrophils # (Auto) 6.40, Lymphocytes # (Auto) 1.29, Monocytes # (Auto) 0.49, Eosinophils # (Auto) 0.38, Basophils # (Auto) 0.04 09/18/17 10:49 Test 09/18/17 10:49 White Blood Count 8.63 K/uL (4.8-10.8) Red Blood Count 4.32 M/uL (4.2-5.4) Hemoglobin 12.6 g/dL (12.0-16.0) Hematocrit 37.2 % (37-47) Mean Corpuscular Volume 86.1 fL (80-100) Mean Corpuscular Hemoglobin 29.2 pg (25-34) Mean Corpuscular Hemoglobin Concent 33.9 g/dl (32-36) Platelet Count 239 K/uL (130-400) Mean Platelet Volume 9.7 fL (7.4-10.4) Neutrophils (%) (Auto) 74.2 % Lymphocytes (%) (Auto) 14.9 % Monocytes (%) (Auto) 5.7 % Eosinophils (%) (Auto) 4.4 % Basophils (%) (Auto) 0.5 % Neutrophils # (Auto) 6.40 K/uL (1.4-6.5) Lymphocytes # (Auto) 1.29 K/uL (1.2-3.4) Monocytes # (Auto) 0.49 K/uL (0.11-0.59) Eosinophils # (Auto) 0.38 K/uL (0-0.5) Basophils # (Auto) 0.04 K/uL (0-0.2) RDW Standard Deviation 46.9 fL (36.4-46.3) RDW Coefficient of Variation 14.9 % (11.5-14.5) Immature Granulocyte % (Auto) 0.3 % Immature Granulocyte # (Auto) 0.03 K/uL (0.00-0.02) Prothrombin Time 10.5 SECONDS (9.0-12.0) Prothromb Time International Ratio 1.0 (0.9-1.1) Activated Partial Thromboplast Time 27.0 SECONDS (21.0-31.0) Partial Thromboplastin Ratio 1.0 Anion Gap 9.0 mmol/L (3-11) Estimated GFR () 72.9 Estimated GFR (Non- 62.9 BUN/Creatinine Ratio 19.8 (10-20) Calcium Level 9.0 mg/dl (8.5-10.1) Troponin I < 0.015 ng/ml (0-0.045) CBC, PRP, PT/INR, and troponin were obtained. They are all unremarkable. Medications Administered Medications (Trade) Dose Ordered Sig/Ovidio Route Start Time Stop Time Status Last Admin Dose Admin Ondansetron HCl (Zofran Inj) 4 mg NOW STAT IV 09/18/17 10:14 09/18/17 10:16 DC 09/18/17 10:29 4 MG Morphine Sulfate (MoRPHine SULFATE INJ) 4 mg NOW STAT IV 09/18/17 10:14 09/18/17 10:16 DC 09/18/17 10:31 4 MG Lidocaine HCl (Buffered Lidocaine 1% Inj) 20 ml NOW ONCE INFIL 09/18/17 11:45 09/18/17 11:47 DC 09/18/17 11:45 20 ML Morphine 4 mg IV, Zofran 4 mg IV Procedure Patient's scalp was cleansed with Betadine and draped with a sterile towel. 8 mL 1% plain buffered lidocaine was drawn up but not use. Thorough inspection of the wound was performed. It is relatively shallow/superficial. It is only about 6 cm in length. Option of pressure dressing versus staple application was discussed with the patient. She would like to avoid adarsh and use only the pressure dressing. This was applied. No adarsh were applied. ED Course Patient and her family were educated regarding today's findings. Conservative care measures were discussed. IV was established. Labs were obtained. Imaging of her head, cervical spine, thoracic spine, lumbar spine, facial bones , and right shoulder were obtained. These were all unremarkable for acute injury. She was given morphine 4 mg IV and Zofran 4 mg IV with resolution of her nausea and improvement in her pain. She did not vomit. Her scalp wound was dressed. It did not require stapling. She will have her dressing in place for 48 hours. She may then shower but avoid scrubbing her scalp. Return to the ED if it should start bleeding again. Tylenol and Motrin every 6 hours as needed for mild to moderate discomfort. Follow-up with her PCP as needed. Return to the ED for any acute worsening of symptoms. She is aware that she may be more sore tomorrow than today. If her shoulder continues with pain, she may require orthopedic evaluation. She was reassured that I find no evidence for spinal fracture, mandible fracture, or intracranial bleed. Patient was seen in conjunction with Dr. Gamble, who also evaluated the patient and concurred with today's diagnosis and treatment plan. Medical Decision Possibility of intracranial bleed, skull fracture, cardiac event, shoulder dislocation, shoulder fracture, spinal fracture, facial contusion, and mandibular fracture were considered among others. Medication Reconcilliation Current Medication List: was personally reviewed by me Blood Pressure Screening Blood pressure disposition: Elevated BP felt to be situational Impression Primary Impression: Fall due to ice or snow Additional Impressions: Closed head injury neck pain Departure Information Dispostion Home / Self-Care Condition GOOD Forms HOME CARE DOCUMENTATION FORM, MOTRIN USE, TYLENOL USE, IMPORTANT VISIT INFORMATION Patient Instructions My [facility] Additional Instructions Cleanse the wound twice a day with soap and water, starting in 2 days Tylenol 650 mg and Motrin 200 or 400 mg every 6 hours as needed for discomfort Return to the ED for any acute worsening of symptoms Follow-up with your PCP next week if discomfort persists Ice or cool compresses to any sore areas 3 days, then use moist heat Gentle stretching daily you will likely be more sore tomorrow than today Problem Qualifiers Primary Impression: Fall due to ice or snow Encounter type: initial encounter Qualified Codes: W00.9XXA - Unspecified fall due to ice and snow, initial encounter Additional Impressions: Closed head injury Encounter type: initial encounter Qualified Codes: S09.90XA - Unspecified injury of head, initial encounter
== END 2017-09-18 12:26 | disposition home or self-care (01) ==
LOC: C.EDB 09:52 → C.EDA 12:26
DX: S01.01XA Laceration without foreign body of scalp, initial encounter (principal); W00.0XXA Fall on same level due to ice and snow, initial encounter; M54.2 Cervicalgia; M25.511 Pain in right shoulder; R68.84 Jaw pain; Z79.899 Other long term (current) drug therapy; Z88.6 Allergy status to analgesic agent; Z87.440 Personal history of urinary (tract) infections; J45.909 Unspecified asthma, uncomplicated; Z80.9 Family history of malignant neoplasm, unspecified; Z83.3 Family history of diabetes mellitus

== ENCOUNTER 2017-11-17 13:16 | Emergency (ER) | payer OTHER ==
[~2017-11-17] VITALS: Ht 149.9 cm; Wt 68.0 kg
[~2017-11-17 13:16] MED LIST changes: +ASCA500 PO; -PRED-603 PEG; -VITACAP26 PO
[2017-11-17 13:27] VITALS: Ht 149.9 cm; Wt 68.0 kg
[2017-11-17] MEDS ORDERED: MONT1TAB3 PO (13:40)
[2017-11-17] MEDS ORDERED: ONDANSETRON INJ 2 MG/ML 2 ML VIAL IV STA (13:52)
[2017-11-17] MEDS ORDERED: ACETAMINOPHEN 500 MG TAB PO STA (13:52)
[2017-11-17] MEDS ORDERED: SODIUM CHLORIDE 0.9% 1000ML 1,000 ML IV STA ×2 (13:52→15:36)
--- NOTE | 2017-11-17 14:19 | DIAGNOSTIC IMAGING REPORT ---
CHEST ONE VIEW PORTABLE HISTORY: Generalized abdominal pain. COMPARISON: Chest 05/24/2017. FINDINGS: Small linear scarlike density within the left midlung zone. The lungs are otherwise clear. The heart is normal in size. No pleural effusions. No pneumothorax. IMPRESSION: No acute process. Electronically signed by: Fracisco Barrios M.D. 11/17/2017 2:18 PM Dictated Date/Time: 11/17/2017 2:15 PM
[2017-11-17 14:26] LABS: BASO % 0.2 %; BASO ABS # 0.03 K/uL (0-0.2); EOS % 0.6 %; EOS ABS # 0.08 K/uL (0-0.5); HEMATOCRIT 36.7 % (37-47); HEMOGLOBIN 12.5 g/dL (12.0-16.0); IG# 0.03 K/uL (0.00-0.02); LYMPH % 7.9 %; LYMPH ABS # 0.99 K/uL (1.2-3.4); MEAN CELL VOLUME 86.2 fL (80-100); MEAN CORPUSCULAR HEMOGLOBIN 29.3 pg (25-34); MEAN CORPUSCULAR HGB CONC 34.1 g/dl (32-36); MEAN PLATELET VOLUME 9.4 fL (7.4-10.4); NEUT % 83.1 %; NEUT ABS # 10.37 K/uL (1.4-6.5); PLATELET COUNT 230 K/uL (130-400); RED CELL DISTRIBUTION WIDTH CV 14.6 % (11.5-14.5); RED CELL DISTRIBUTION WIDTH SD 45.2 fL (36.4-46.3)
[2017-11-17 14:43] LABS: ALBUMIN 3.8 gm/dl (3.4-5.0); CALCIUM 9.3 mg/dl (8.5-10.1); CREATININE 0.81 mg/dl (0.60-1.20); POTASSIUM 3.8 mmol/L (3.5-5.1)
[2017-11-17 14:46] LABS: TOTAL PROTEIN 7.1 gm/dl (6.4-8.2)
[2017-11-17] MEDS ORDERED: CIPROFLOXACIN 400MG / 200ML D5W IV STA (15:36)
[2017-11-17 15:51] VITALS: TEMP 37.1
[2017-11-17] MEDS ORDERED: CIPR-255 PO (16:25)
[2017-11-17] MEDS ORDERED: SACC250C3 PO (16:25)
[2017-11-17] MEDS ORDERED: ONDA4TAB10 SL (16:27)
--- NOTE | 2017-11-17 16:27 | EMERGENCY ROOM VISIT NOTE ---
History Report prepared by Radha: Nitin Wilder Under the Supervision of: Dr. Renny Trivedi M.D. First contact with patient: 13:40 Chief Complaint: URINARY SYMPTOMS Stated Complaint: BLADDER INFECTION History of Present Illness The patient is an 82 year old female who presents to the Emergency Room with complaints of worsening lower back pain and fowl smelling urine/burning with urination that began Wednesday night, 3 days ago. The patient states that she has noticed that her urine has been smelling very strong and she has been having burning with urination. The patient states that she also began "shaking" Wednesday night. She took two "arthritis tablets" at 1100 today, which improved her fever. Source of History: patient Onset: 3 days ago Position: back (lower), other (Genitourinary) Quality: burning (with urination) Timing: worsening Modifying Factors (Relieving): other (Arthritis tablets improved fevers) Review of Systems See HPI for pertinent positives and negatives. A total of ten systems were reviewed and were otherwise negative. Past Medical & Surgical Medical Problems: (1) Asthma (2) UTI (urinary tract infection) Family History Blood clots Cancer Diabetes mellitus Heart disease Social History Smoking Status: Never Smoker Alcohol Use: none Marital Status: Housing Status: lives with family Occupation Status: retired Current/Historical Medications Scheduled Ascorbic Acid (Vitamin C), Unknown Dose PO DAILY Ciprofloxacin Hcl (Cipro), 500 MG PO BID Levothyroxine Sodium (Synthroid), 50 MCG PO DAILY Mometasone Furoate-Formoterol (Dulera 200/5 Mcg), 2 PUFFS INH BID Montelukast Sodium (Singulair), 10 MG PO DAILY Multivitamin (Multivitamin), 1 TAB PO DAILY Ondasetron Odt (Zofran Odt), 4 MG SL Q6H Saccharomyces Boulardii (Florastor), 1 CAP PO BID Scheduled PRN Levalbuterol (Levalbuterol HCl), 1 VIAL INH Q4H PRN for SOB/Wheezing Levalbuterol Tartrate (Levalbuterol Tartrate Hfa), 2 PUFFS INH Q4H PRN for SOB/ Wheezing Lorazepam (Ativan), 0.5 MG PO DAILY PRN for Anxiety Allergies Coded Allergies: No Known Allergies (Unverified , 11/17/17) Physical Exam Vital Signs Date Time Temp Pulse Resp B/P (MAP) Pulse Ox O2 Delivery O2 Flow Rate FiO2 11/17/17 16:54 75 16 134/64 98 Room Air 11/17/17 15:51 37.1 77 16 112/47 95 Room Air 11/17/17 14:51 82 11/17/17 13:27 37.6 96 20 147/66 98 Room Air Physical Exam GENERAL: Awake, alert, fatigued, uncomfortable-appearing, in no distress HENT: Normocephalic, atraumatic. Mucous membranes are Dry. EYES: Normal conjunctiva. Sclera non-icteric. NECK: Supple. No nuchal rigidity. FROM. No JVD. RESPIRATORY: Clear to auscultation. CARDIAC: Regular rate, normal rhythm. Extremities warm and well perfused. Pulses equal. ABDOMEN: Soft, non-distended. There is mild suprapubic tenderness to palpation. No rebound or guarding. No masses. RECTAL: Deferred. MUSCULOSKELETAL: Chest examination reveals no tenderness. The back is symmetrical on inspection without obvious abnormality. There is no CVA tenderness to palpation. No joint edema. LOWER EXTREMITIES: Calves are equal size bilaterally and non-tender. No edema. No discoloration. NEURO: Normal sensorium. No sensory or motor deficits noted. SKIN: No rash or jaundice noted. Medical Decision & Procedures ER Provider Diagnostic Interpretation: Radiology results as stated below per my review and radiologist interpretation: CHEST ONE VIEW PORTABLE HISTORY: Generalized abdominal pain. COMPARISON: Chest 05/24/2017. FINDINGS: Small linear scarlike density within the left midlung zone. The lungs are otherwise clear. The heart is normal in size. No pleural effusions. No pneumothorax. IMPRESSION: No acute process. Electronically signed by: Fracisco Barrios M.D. 11/17/2017 2:18 PM Dictated Date/Time: 11/17/2017 2:15 PM Laboratory Results 11/17/17 14:15 Red Blood Count 4.26, Mean Corpuscular Volume 86.2, Mean Corpuscular Hemoglobin 29.3, Mean Corpuscular Hemoglobin Concent 34.1, Mean Platelet Volume 9.4, Neutrophils (%) (Auto) 83.1, Lymphocytes (%) (Auto) 7.9, Monocytes (%) (Auto) 8.0, Eosinophils (%) (Auto) 0.6, Basophils (%) (Auto) 0.2, Neutrophils # (Auto) 10.37, Lymphocytes # (Auto) 0.99, Monocytes # (Auto) 1.00, Eosinophils # (Auto) 0.08, Basophils # (Auto) 0.03 11/17/17 14:15 Test 11/17/17 14:05 11/17/17 14:15 Urine Color YELLOW Urine Appearance SL CLOUDY (CLEAR) Urine pH 7.5 (4.5-7.5) Urine Specific [place] 1.010 (1.000-1.030) Urine Protein 2+ (NEG) Urine Glucose (UA) NEG (NEG) Urine Ketones TRACE (NEG) Urine Occult Blood 3+ (NEG) Urine Nitrite POS (NEG) Urine Bilirubin NEG (NEG) Urine Urobilinogen NEG (NEG) Urine Leukocyte Esterase LARGE (NEG) Urine RBC 10-30 /hpf (0-4) Urine WBC >30 /hpf (0-5) Urine Epithelial Cells 0-5 /lpf (0-5) Urine Bacteria 4+ (NEG) White Blood Count 12.50 K/uL (4.8-10.8) Red Blood Count 4.26 M/uL (4.2-5.4) Hemoglobin 12.5 g/dL (12.0-16.0) Hematocrit 36.7 % (37-47) Mean Corpuscular Volume 86.2 fL (80-100) Mean Corpuscular Hemoglobin 29.3 pg (25-34) Mean Corpuscular Hemoglobin Concent 34.1 g/dl (32-36) Platelet Count 230 K/uL (130-400) Mean Platelet Volume 9.4 fL (7.4-10.4) Neutrophils (%) (Auto) 83.1 % Lymphocytes (%) (Auto) 7.9 % Monocytes (%) (Auto) 8.0 % Eosinophils (%) (Auto) 0.6 % Basophils (%) (Auto) 0.2 % Neutrophils # (Auto) 10.37 K/uL (1.4-6.5) Lymphocytes # (Auto) 0.99 K/uL (1.2-3.4) Monocytes # (Auto) 1.00 K/uL (0.11-0.59) Eosinophils # (Auto) 0.08 K/uL (0-0.5) Basophils # (Auto) 0.03 K/uL (0-0.2) RDW Standard Deviation 45.2 fL (36.4-46.3) RDW Coefficient of Variation 14.6 % (11.5-14.5) Immature Granulocyte % (Auto) 0.2 % Immature Granulocyte # (Auto) 0.03 K/uL (0.00-0.02) Anion Gap 8.0 mmol/L (3-11) Est Creatinine Clear Calc Drug Dose 46.5 ml/min Estimated GFR () 79.5 Estimated GFR (Non- 68.6 BUN/Creatinine Ratio 16.4 (10-20) Calcium Level 9.3 mg/dl (8.5-10.1) Total Bilirubin 0.9 mg/dl (0.2-1) Direct Bilirubin 0.2 mg/dl (0-0.2) Aspartate Amino Transf (AST/SGOT) 17 U/L (15-37) Alanine Aminotransferase (ALT/SGPT) 23 U/L (12-78) Alkaline Phosphatase 112 U/L (45-117) Total Protein 7.1 gm/dl (6.4-8.2) Albumin 3.8 gm/dl (3.4-5.0) Lipase 79 U/L (73-393) Laboratory results reviewed by me Medications Administered Medications (Trade) Dose Ordered Sig/Ovidio Route Start Time Stop Time Status Last Admin Dose Admin Sodium Chloride 1,000 ml @ 999 mls/hr Q1H1M STAT IV 11/17/17 13:52 11/17/17 14:52 DC 11/17/17 14:21 999 MLS/HR Acetaminophen (Tylenol Tab) 1,000 mg NOW STAT PO 11/17/17 13:52 11/17/17 13:55 DC 11/17/17 14:09 1,000 MG Ondansetron HCl (Zofran Inj) 4 mg NOW STAT IV 11/17/17 13:52 11/17/17 13:55 DC 11/17/17 14:21 4 MG Ciprofloxacin/ Dextrose (Cipro / D5W) 400 mg NOW STAT IV 11/17/17 15:36 11/17/17 15:37 DC 11/17/17 15:45 400 MG Sodium Chloride 1,000 ml @ 999 mls/hr Q1H1M STAT IV 11/17/17 15:36 11/17/17 16:36 DC 11/17/17 15:36 999 MLS/HR ED Course 1349: The patient was evaluated in room B10. A complete history and physical exam was performed. 1352: Ordered Zofran 4 mg IV, Tylenol 1000 mg PO, Sodium Chloride 1000 mL @ 999 mL/hr IV. 1535: Ordered Sodium Chloride 1000 mL @ 999 mL/hr IV. 1536: Ordered Ciprofloxacin 400 mg IV. 1615: I checked on the patient at this time. She is doing well. The patient will be discharged home when her IV fluids have finished running. Medical Decision I reviewed the patient's past medical history, medications, and the nursing notes as described above. Differential diagnosis: Etiologies such as appendicitis, diverticulitis, PUD, biliary pathology, UTI, pancreatitis, obstruction, mesenteric ischemia, aortic pathology, infections, inflammatory bowel disease, renal colic, as well as others were entertained. The patient is a 82-year-old woman who presents emergency department with generalized weakness, fevers chills and foul-smelling urine per hpi. Arrival the patient is fatigued appearing but no acute distress, temp is 37.6 and vital signs otherwise stable. On exam the patient has mild suprapubic tenderness with no peritoneal signs. WBC 12.5. UA grossly positive with positive nitrites. Chemistry unremarkable. Chest x-ray negative. The patient was feeling improved after IV fluid hydration. Given the patient's systemic symptoms on arrival patient was given IV dose of Cipro and otherwise will treat with 1 week course. Findings and plan for follow-up reviewed with patient. Patient agreeable and d/c'd per discharge instructions. Medication Reconcilliation Current Medication List: was personally reviewed by me Blood Pressure Screening Patient's blood pressure: Elevated blood pressure Blood pressure disposition: Elevated BP felt to be situational Impression Primary Impression: Urinary tract infection Scribe Attestation The scribe's documentation has been prepared under my direction and personally reviewed by me in its entirety. I confirm that the note above accurately reflects all work, treatment, procedures, and medical decision making performed by me. Departure Information Dispostion Home / Self-Care Prescriptions Ondasetron Odt (ZOFRAN ODT) 4 Mg Tab 4 MG SL Q6H for Nausea, #10 TAB Prov: Renny Trivedi M.D. 11/17/17 Saccharomyces Boulardii (Florastor) 250 Mg Cap 1 CAP PO BID for 10 Days, #20 CAP Prov: Renny Trivedi M.D. 11/17/17 Ciprofloxacin Hcl (CIPRO) 500 Mg Tab 500 MG PO BID, #7 TAB Prov: Renny Trivedi M.D. 11/17/17 Referrals Jeffrey Pimentel M.D. (PCP) Patient Instructions ED UTI Cystitis Female, My [facility] Additional Instructions Please follow up with your primary care physician in the next 1-3 days for re- evaluation. You were found to have a urinary tract infection. Otherwise, your exam, chest xray, and lab results did not show signs of an emergent condition at this time. Acetaminophen or ibuprofen for pain and fevers as needed. Ciprofloxacin as directed. Florastor, probiotic, to help prevent antibiotic associated diarrhea. Zofran as needed for nausea. Drink plenty of fluids to ensure hydration. Return to the emergency department for worsening symptoms as described in the accompanying instructions.
[2017-11-17 16:54] VITALS: BP 134/64; PULSE 75; O2SAT 98
--- NOTE | 2017-11-19 13:00 | Pharmacy Progress Note ---
ED Pharmacist Culture FollowUp Date of Service: Nov 19, 2017. Patient was sent home with a prescription for ciprofloxacin, which should cover the E. coli growing from the patient's urine culture.
== END 2017-11-17 17:00 | disposition home or self-care (01) ==
LOC: C.EDB 13:17
DX: N39.0 Urinary tract infection, site not specified (principal); J45.909 Unspecified asthma, uncomplicated

== ENCOUNTER → 2018-03-28 | Outpatient (CLI) | payer OTHER ==
[~2018-03-28] MED LIST changes: +MONT1TAB3 PO; +NITR-5 PO; +PHEN-876 PO
--- NOTE | 2018-03-29 14:47 | MAMMOGRAPHY REPORT ---
UNILATERAL LEFT DIGITAL SCREENING MAMMOGRAM TOMOSYNTHESIS WITH CAD: 03/28/2018 CLINICAL HISTORY: Personal history of breast cancer. Status post right mastectomy. The patient report ed to the technologist that she has right axillary pain. TECHNIQUE: Breast tomosynthesis in addition to standard 2D mammography was performed. Current study w as also evaluated with a Computer Aided Detection (CAD) system. Left CC and MLO 2D and tomosynthesis images were obtained. COMPARISON: Comparison is made to exams dated: 03/25/2017 mammogram - [facility] an d 11/07/2008. BREAST COMPOSITION: There are scattered areas of fibroglandular density in left breast. FINDINGS: There are no suspicious masses, calcifications, or areas of architectural distortion noted within th e left breast. There has been no significant interval change compared to prior exams. Scattered asy mmetries and benign-appearing calcifications are stable. IMPRESSION: ACR BI-RADS CATEGORY 2: BENIGN 1. There is no mammographic evidence of malignancy in the left breast. A 1 year screening mammogram i s recommended. (03/29/2019) 2. The patient reported right axillary pain to the technologist. Recommend clinical follow-up; targ eted ultrasound could be performed if findings are clinically suspicious. The patient will receive written notification of the results. Some breast cancers are not detected with mammography. A negative mammographic report should not yael y biopsy if a clinically suggestive mass is present. Yara Garcia M.D. /:03/28/2018 14:42:24 Camp Coordinator: Sarah Molina, [facility] letter sent: Normal 1/2 BI-RADS Code: ACR BI-RADS Category 2: Benign
== END | disposition home or self-care (01) ==
LOC: C.MAMM 13:50
PROVIDERS: ATTEND Internal Medicine
DX: Z12.31 Encounter for screening mammogram for malignant neoplasm of breast (principal)

== ENCOUNTER 2019-03-22 05:56 | Inpatient (IN) ==
--- NOTE | 2019-03-15 14:07 | PAT Medication Instructions ---
Medication Instructions Date of Service March 15, 2019 Home Medications Dulera 2 puff INHALATION BID PRN albuterol sulfate [ProAir HFA] 2 puff INHALATION Q6H PRN calcium carbonate [Calcium 500] 500 mg PO 3XWK fexofenadine [Consuelo Allergy] 180 mg PO DAILY PRN levalbuterol HCl [Xopenex] 0.63 mg INHALATION TID PRN levothyroxine 50 mcg PO QAM lorazepam 0.5 mg PO BID PRN montelukast 10 mg PO QPM multivitamin 1 tab PO DAILY meloxicam 15 mg tablet 15 mg PO QPM ASK your surgeon for instructions meloxicam 15 mg tablet 15 mg PO QPM DO NOT take the morning of surgery calcium carbonate [Calcium 500] 500 mg PO 3XWK fexofenadine [Consuelo Allergy] 180 mg PO DAILY PRN multivitamin 1 tab PO DAILY Take morning of surgery With a small sip of water, OTHERWISE NOTHING TO EAT OR DRINK AFTER MIDNIGHT: Dulera 2 puff INHALATION BID PRN (if needed) albuterol sulfate [ProAir HFA] 2 puff INHALATION Q6H PRN (use if needed; please bring with you to hospital day of surgery if possible) levalbuterol HCl [Xopenex] 0.63 mg INHALATION TID PRN (if needed) levothyroxine 50 mcg PO QAM lorazepam 0.5 mg PO BID PRN (if needed) Take evening before surgery Dulera 2 puff INHALATION BID PRN (if needed) albuterol sulfate [ProAir HFA] 2 puff INHALATION Q6H PRN (if needed) levalbuterol HCl [Xopenex] 0.63 mg INHALATION TID PRN (if needed) lorazepam 0.5 mg PO BID PRN(if needed) montelukast 10 mg PO QPM Other Notes If you have any questions please call us at [phone] or [phone] or [phone] or [phone]
--- NOTE | 2019-03-16 11:50 | Anesthesiology Consultation ---
Date of Service March 16, 2019 Assessment & Plan (1) Encounter for pre-operative examination: - s/p right cataract with IOL implant: 05/06/18: MAC sedation at [facility] [place] - PCP: 03/02/19: "Using the revised cardiac index, she is at low risk for adverse outcomes with non-cardiac surgery. She is an acceptable risk for surgery.. She does have a history of right breast mastectomy. Would recommended monitoring BP and IV in the left arm, or BP in the left arm and IV in the right arm during surgery." Chart Review Chart Review: Acceptable Risk for Surgery and Patient seen in Pre Admission Testing Teaching & Discussion Pre-Anesthesia Teaching/Discussion Notes: Instructed NPO after midnight before surgery,except medications with 15 cc of water. Medication instructions provided according to the PAT guidelines. History Surgery Operation Date: 03/22/19 11:45 Proposed Procedures p L2-L5 Decompression and Possible Fusion with Spinal Cord Monitoring - Bryan Ann, Height/Weight Height: 4 ft 11 in Weight: 62.9 kg Allergies Allergy/AdvReac Type Severity Reaction Status Date / Time No Known Allergies Allergy Verified 03/13/19 12:18 Medications Home Medications Medication Instructions Recorded Confirmed Last Taken Dulera 2 puff INHALATION BID PRN 04/11/18 03/13/19 04/20/18 08:30 albuterol sulfate [ProAir HFA] 2 puff INHALATION Q6H PRN 04/11/18 03/13/19 04/20/18 08:30 calcium carbonate [Calcium 500] 500 mg PO 3XWK 04/11/18 03/13/19 Unknown fexofenadine [Consuelo Allergy] 180 mg PO DAILY PRN 04/11/18 03/13/19 Unknown levalbuterol HCl [Xopenex] 0.63 mg INHALATION TID PRN 04/11/18 03/13/19 04/20/18 08:30 levothyroxine 50 mcg PO QAM 04/11/18 03/13/19 05/03/18 lorazepam 0.5 mg PO BID PRN 04/11/18 03/13/19 Unknown montelukast 10 mg PO QPM 04/11/18 03/13/19 05/03/18 multivitamin 1 tab PO DAILY 04/11/18 03/13/19 05/03/18 meloxicam 15 mg tablet 15 mg PO QPM 03/02/19 03/13/19 Unknown Past Medical History Medical History Asthma stable Borderline hyperlipidemia Borderline hypertension anxiety related Chronic obstructive pulmonary disease + emphysema; stable GERD (gastroesophageal reflux disease) controlled HX: breast cancer s/p right breast mastectomy Hx of bladder cancer s/p partial resection; under surveillance Hx of cancer of uterus s/p hysterectomy Hx of migraines Hypothyroidism Macular degeneration of both eyes Osteoarthritis Spinal stenosis Exercise / Class Metabolic Activity III < 4 Walking/Shop/Light housework Past Family History Family History Sister Family history of irritable bowel syndrome Past Surgical History Surgical History History of appendectomy History of bladder surgery PARTIAL RESECTION History of section History of colonoscopy History of mastectomy RT BREAST History of tonsillectomy History of tooth extraction History of total abdominal hysterectomy and bilateral salpingo-oophorectomy Hx of cataract surgery LEFT Past Anesthesia History No Hx of Anesthesia Complications (except PONV) and No Family Hx of Anesthesia Complications History of PONV No Hx of Motion Sickness and History of PONV Social History Smoking Status: Never smoker Do You Dip or Chew Tobacco: No Hx Alcohol Use: Yes Alcohol type: wine alcohol intake frequency: holidays/special occasions only Hx Substance Use: No (hx CBD oil (not currently using)) Review of Systems Reflux controlled. Patient denies chest pain, shortness of breath, cough, wheezing, palpitations. Physical Exam Vital Signs VITALS BP 141/84 P 76 TEMP 97.6 SP02 96%RA RESP 18 PHYSICAL Full neck and c-spine range of motion. Full TMJ range of motion. TMD 3 finger breaths Mallampati Score 1 Dentition: intact, upper front caps Lungs: clear throughout to auscultation Cardiac: regular rate and rhythm, no murmurs noted Spine: normal Carotid arteries: negative bruit Extremities: no edema Testing Laboratory Results 03/16/19 12:14 03/16/19 12:14 PT 10.6 Seconds (9.0-12.0) 03/16/19 12:14 INR 1.0 (0.9-1.1) 03/16/19 12:14 APTT 27.6 Seconds (21.0-31.0) 03/16/19 12:14 Urine Color Yellow 03/16/19 12:14 Urine Appearance Clear (Clear) 03/16/19 12:14 Urine pH 8.0 (4.5-7.5) H 03/16/19 12:14 Ur Specific [place] 1.011 (1.000-1.030) 03/16/19 12:14 Urine Protein Negative (Negative) 03/16/19 12:14 Urine Glucose (UA) Negative (Negative) 03/16/19 12:14 Urine Ketones Negative (Negative) 03/16/19 12:14 Urine Nitrite Negative (Negative) 03/16/19 12:14 Ur Leukocyte Esterase Trace (Negative) H 03/16/19 12:14 Urine WBC (Auto) 1-5 /hpf (0-5) 03/16/19 12:14 Urine RBC (Auto) 5-10 /hpf (0-4) H 03/16/19 12:14 U Hyaline Cast (Auto) 0 /lpf (0-5) 03/16/19 12:14 U Epithel Cells (Auto) 5-10 /lpf (0-5) H 03/16/19 12:14 Urine Bacteria (Auto) Negative (Negative) 03/16/19 12:14 Blood Type O Positive 03/16/19 12:14 Antibody Screen NEGATIVE 03/16/19 12:14 Electrocardiogram Date: 03/16/19 Findings: + NSR @ (72) Chest X-Ray Date: 10/14/18 Findings suggest emphysema. No focal infiltrate to suggest pneumonia.
[2019-03-16 14:28] LABS: BUN Creatinine Ratio 16.2 (10-20); Calcium 9.4 mg/dl (8.5-10.1); Creatinine Clr Calc Pharmacy 41.4 ml/min; Est GFR (African American) 73.4; Est GFR (Non-African American) 63.4; Potassium 4.4 mmol/L (3.5-5.1)
[2019-03-16 14:34] LABS: Partial Thromboplastin Time 27.6 Seconds (21.0-31.0); Prothrombin Time 10.6 Seconds (9.0-12.0)
[2019-03-16 14:36] LABS: Basophils # (auto) 0.02 K/uL (0-0.2); Basophils % (auto) 0.3 %; Eosinophils # (auto) 0.28 K/uL (0-0.5); Eosinophils % (auto) 4.5 %; Hematocrit (blood only) 37.7 % (37-47); Hemoglobin 12.5 g/dL (12.0-16.0); Immature Granulocytes # (auto) 0.01 K/uL (0.00-0.02); Immature Granulocytes % (auto) 0.2 %; Lymphocytes # (auto) 1.39 K/uL (1.2-3.4); Lymphocytes % (auto) 22.4 %; Mean Corpuscular Hgb Conc 33.2 g/dL (32-36); Mean Corpuscular Volume 87.1 fL (80-100); Mean Platelet Volume 10.5 fL (7.4-10.4); Monocytes # (auto) 0.49 K/uL (0.11-0.59); Monocytes % (auto) 7.9 %; Neutrophils # (auto) 4.02 K/uL (1.4-6.5); Neutrophils % (auto) 64.7 %; Platelet Count 266 K/uL (130-400); RDW Coefficient of Variation 14.5 % (11.5-14.5); RDW Standard Deviation 46.7 fL (36.4-46.3); Red Blood Count 4.33 M/uL (4.2-5.4); White Blood Count 6.21 K/uL (4.8-10.8)
[2019-03-16 14:41] LABS: Appearance Urine Clear (Clear); Bacteria Urine Automated Negative (Negative); Bilirubin Urine Negative (Negative); Blood Urine Negative (Negative); Cast Urine Automated 0 /lpf (0-5); Color Urine Yellow; Glucose Urine UA Negative (Negative); Ketones Urine Negative (Negative); Leukocyte Esterase Urine Trace (Negative); Nitrite Urine Negative (Negative); Protein Urine Negative (Negative); Specific Gravity Urine 1.011 (1.000-1.030); Urobilinogen Urine Negative (Negative)
[2019-03-22] MEDS ORDERED: ACETAMINOPHEN 500 MG TAB PO SCH (06:00)
[2019-03-22] MEDS ORDERED: CeleBREX 200 MG CAP PO SCH (06:00)
[2019-03-22] MEDS ORDERED: LR 15ML/HR IV SCH (06:00)
[2019-03-22] MEDS ORDERED: CEFAZOLIN 1000MG 1,000 MG/7.5 ML SYR IV SCH (06:00)
[2019-03-22] MEDS ORDERED: GABAPENTIN 300 MG CAP PO SCH (06:00)
[2019-03-22] MEDS ORDERED: ONDANSETRON INJ 2 MG/ML 2 ML VIAL ONE ×2 (06:28→09:15)
[2019-03-22] MEDS ORDERED: LIDOCAINE HCL 2% 2 ML VIAL/AMP(20MG/ML) INFIL ONE ×2 (06:28→09:15)
[2019-03-22] MEDS ORDERED: fentaNYL citrate 100 MCG/2 ML VIAL ONE ×4 (06:28→10:39)
[2019-03-22] MEDS ORDERED: DEXAMETHASONE SOD INJ 4 MG/ML VIAL ONE ×2 (06:28→08:16)
[2019-03-22] MEDS ORDERED: PROPOFOL IV EMULSION 10 MG/ML 20 ML VIAL IV ONE ×2 (06:28→09:15)
[2019-03-22] MEDS ORDERED: ROCURONIUM BROMIDE 10 MG/ML 5 ML VIAL ONE ×2 (06:28→09:14)
[2019-03-22] MEDS ORDERED: ALBUMIN HUMAN 5% 12.5 GM/250 ML VIAL IV ONE (06:39)
[2019-03-22] MEDS ORDERED: BUPIVACAINE/EPINEPHRINE 0.5% MPF 1:200,000 30 ML VIAL ONE (07:10)
[2019-03-22] MEDS ORDERED: BACITRACIN INJ 50,000 UNIT VIAL ONE (07:11)
--- NOTE | 2019-03-22 07:34 | History & Physical Bridge Note ---
Date of Service March 22, 2019 History & Physical Bridge Note I have examined the patient, reviewed the History & Physical and in the interval since the performance of the History & Physical I have noted the following changes of clinical significance: no changes noted
--- NOTE | 2019-03-22 07:35 | History & Physical Report ---
Date of Service March 22, 2019 Assessment & Plan (1) Spinal stenosis, lumbar region with neurogenic claudication: L2-L5 decompression and possible fusion Present on Admission?: Yes History of Present Illness Chief Complaint: Back and leg pain Primary Care Provider: Jeffrey Pimentel MD This is an 84-year-old female who presents with chronic persistent back and leg pain. After failing extensive course of nonoperative care is here for surgical intervention. Allergies Allergy/AdvReac Type Severity Reaction Status Date / Time No Known Allergies Allergy Verified 03/22/19 06:09 Home Medications Home Medications Medication Instructions Recorded Confirmed Type Dulera 2 puff INHALATION BID PRN 04/11/18 03/22/19 History albuterol sulfate [ProAir HFA] 2 puff INHALATION Q6H PRN 04/11/18 03/22/19 History calcium carbonate [Calcium 500] 500 mg PO 3XWK 04/11/18 03/22/19 History fexofenadine [Consuelo Allergy] 180 mg PO DAILY PRN 04/11/18 03/22/19 History levalbuterol HCl [Xopenex] 0.63 mg INHALATION TID PRN 04/11/18 03/22/19 History levothyroxine 50 mcg PO QAM 04/11/18 03/22/19 History lorazepam 0.5 mg PO BID PRN 04/11/18 03/22/19 History montelukast 10 mg PO QPM 04/11/18 03/22/19 History multivitamin 1 tab PO DAILY 04/11/18 03/22/19 History meloxicam 15 mg tablet 15 mg PO QPM 03/02/19 03/22/19 History Past Med/Surg History Medical History Asthma stable Borderline hyperlipidemia Borderline hypertension anxiety related Chronic obstructive pulmonary disease + emphysema; stable GERD (gastroesophageal reflux disease) controlled HX: breast cancer s/p right breast mastectomy Hx of bladder cancer s/p partial resection; under surveillance Hx of cancer of uterus s/p hysterectomy Hx of migraines Hypothyroidism Macular degeneration of both eyes Osteoarthritis Spinal stenosis Surgical History History of appendectomy History of bladder surgery PARTIAL RESECTION History of section History of colonoscopy History of mastectomy RT BREAST History of tonsillectomy History of tooth extraction History of total abdominal hysterectomy and bilateral salpingo-oophorectomy Hx of cataract surgery LEFT Family History Sister Family history of irritable bowel syndrome Social History Preferred Language: Zimbabwean Communication Ability: Effective 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 Results & Data Vital Signs (Past 12 Hours) Vital Signs Temp Pulse Resp BP Pulse Ox 03/22/19 06:20 36.8 C 83 20 145/86 H 98
[2019-03-22] MEDS ORDERED: ONDANSETRON INJ 2 MG/ML 2 ML VIAL IV PRN (08:04)
[2019-03-22] MEDS ORDERED: ePHEDrine sulfate 50 MG/ML AMP IV PRN (08:04)
[2019-03-22] MEDS ORDERED: HYDROmorphone INJ 1 MG/ML SYRINGE IV PRN (08:04)
[2019-03-22] MEDS ORDERED: ATROPINE SULFATE 0.1 MG/ML 10ML SYR IV PRN (08:04)
[2019-03-22] MEDS ORDERED: HYDROmorphone INJ 2 MG/ML SYR/VIAL ONE ×2 (08:21→09:04)
[2019-03-22] MEDS ORDERED: ePHEDrine sulfate 50 MG/ML SYR ONE ×2 (08:50→09:15)
[2019-03-22] MEDS ORDERED: FLOSEAL HEMOSTATIC MATRIX 10ML TOP ONE (08:53)
[2019-03-22] MEDS ORDERED: NEOSTIGMINE METHYLSULFATE 1 MG/ML 10ML VIAL ONE ×2 (09:14→09:15)
[2019-03-22] MEDS ORDERED: GLYCOPYRROLATE 0.2 MG/ML VIAL ONE (09:14)
--- NOTE | 2019-03-22 10:35 | Operative Report ---
Post Operative Report Pre & Post Diagnosis Operation Date: 03/22/19 07:45 Pre-Op Diagnosis: Spinal Stenosis, Lumbar Region with Neurogenic Claudication Post-Op Diagnosis: Spinal Stenosis, Lumbar Region with Neurogenic Claudication Procedure Operation Date: 03/22/19 07:45 Actual Procedures #1 lumbar decompression with bilateral medial facetectomies foraminotomies L1-2 L2-3 L3-4 L4-5. #2 posterior spinal fusion L2-3 L3-4 L4-5. #3 placement of posterior segmental instrumentation L2-3 L3-4 L4-5. #4 placement of local autograft in the posterior lateral gutters. #5 placement infuse collagen sponge combined with master graft in the posterior lateral gutters. Surgeon Bryan Ann, Nuclear Radiologist Malina Boykin Estimated Blood Loss 275 Findings Consistent with Post-Op Diagnosis Specimens None Indications This is an 84-year-old female who presents with above-mentioned diagnosis after failing extensive course of nonoperative care like to undergo the above- mentioned procedure. Description of Procedure Patient was met with identified and informed consent obtained. She was then taken to the operative suite underwent intubation placed in a prone position on the Abraham table on top of the Shankar frame. All bony prominences well-padded eyes inspected to ensure no external pressure placed upon. This point the lumbar spine was prepped and draped in a normal sterile fashion. Sharp dissection with the assistance of Bovie cautery was performed down to and exposing the lamina and transverse processes of L to L3-L4-L5 bilaterally. From a caudal cephalad fashion complete laminectomy of L4 L3 L2 and partial laminectomy of L1 was performed including bilateral medial facetectomies foraminotomies addressing severe stenosis. Small durotomy was identified and closed with a single 4-0 Nurolon. Pedicle screws were then placed in L2 L3-L4-L5 bilaterally with assistance of fluoroscopy the purposes az locked in position. Transverse processes of L2 L3-L4-L5 then burred to subcortical bleeding bone. Infuse collagen sponge mass graft local autograft placed in the posterior 2-0 Vicryl subcutaneously for Monocryl fashion closure. Steri-Strips dressings placed. Patient will continue PACU stable condition. Note for Malina Boykin was present throughout the entire procedure involved in patient positioning complex portions of the surgery and final skin closure. Please note spinal cord monitoring utilized that procedure no changes noted. I attest to the content of the Intraoperative Record and any orders documented therein. Any exceptions are noted below.
--- NOTE | 2019-03-22 10:51 | Fluoroscopy Report ---
INTRAOPERATIVE RADIOGRAPHS CLINICAL HISTORY: L2-L5 spinal fusion. Fluoroscopy time: 19 seconds. FINDINGS: 2 spot fluoroscopic views of the lumbar spine are presented. There as been laminectomy and posterior fusion from L2-L5. Interpedicular screws are present at all levels. The orthopedic hardware appears intact. IMPRESSION: Intraoperative images from L2 -L5 spinal fusion as above. Electronically signed by: Eduard Hoffman M.D. 03/22/2019 10:50 AM
[2019-03-22] MEDS: fentaNYL citrate 100 MCG/2 ML VIAL IV PRN ×2 (11:04→11:20)
--- NOTE | 2019-03-22 11:42 | Anesthesiology Progress Note ---
Date of Service March 22, 2019 Anesthesia Post Procedure Vital Signs Vital Signs: Temp Pulse Pulse Resp BP Pulse Ox 03/22/19 11:30 76 11 L 140/61 100 03/22/19 11:20 90 13 149/74 H 98 03/22/19 11:10 79 21 146/70 H 100 03/22/19 11:00 83 19 146/71 H 100 03/22/19 10:50 38.7 C H 89 12 154/77 H 100 03/22/19 06:20 36.8 C 83 20 145/86 H 98 Pain Intensity Medial Back: Pain Intensity: 7 Transfer of Care Handoff Completed per policy Notes Mental Status: alert / awake / arousable and participated in evaluation Patient Amnestic to Procedure: Yes Nausea / Vomiting: adequately controlled Pain: adequately controlled Airway Patency, RR, SpO2: stable & adequate BP & HR: stable & adequate Hydration State: stable & adequate Anesthetic Complications: no major complications apparent and Pt Satisfied with anesthetic care
[2019-03-22] MEDS ORDERED: BISACODYL 10 MG SUPP PR PRN (12:02)
[2019-03-22] MEDS ORDERED: DO NOT ADMINISTER PNEUMOCOCCAL VACCINE PRN (12:02)
[2019-03-22] MEDS ORDERED: HYDROmorphone INJ 0.5 MG/0.5 ML SYR IV PRN (12:02)
[2019-03-22] MEDS ORDERED: FAMOTIDINE 20 MG TAB PO PRN (12:02)
[2019-03-22] MEDS ORDERED: LEVALBUTEROL HCL 0.63 MG/3 ML NEB INH PRN (12:02)
[2019-03-22] MEDS ORDERED: ALUMINUM/MAGNESIUM SUSP 30 ML UDC PO PRN (12:02)
[2019-03-22] MEDS ORDERED: NALOXONE HCL 0.4 MG/1 ML VIAL/CARP IV PRN (12:02)
[2019-03-22] MEDS ORDERED: FEXOFENADINE HCL 180 MG TAB PO PRN (12:02)
[2019-03-22] MEDS ORDERED: ONDANSETRON 4 MG TAB PO PRN (12:02)
[2019-03-22] MEDS ORDERED: PROMETHAZINE HCL 12.5 MG in SODIUM CHLORIDE 0.9% 50 ML IV PRN (12:02)
[2019-03-22] MEDS ORDERED: DO NOT ADMINISTER FLU VACCINE PRN (12:02)
[2019-03-22] MEDS ORDERED: MAGNESIUM HYDROXIDE SUSP 30 ML UDC PO PRN (12:02)
[2019-03-22] MEDS ORDERED: SOD PHOSPHATE/SOD BIPHOSPHATE ENEMA 132 ML BTL PR PRN (12:02)
[2019-03-22] MEDS ORDERED: LORazepam 0.5 MG/1 ML VIAL IV PRN (12:02)
[2019-03-22] MEDS ORDERED: ALBUTEROL HFA INHALER 8.5 GM INH PRN (13:00)
[2019-03-22] MEDS: ACETAMINOPHEN 1,000 MG/100 ML VIAL IV PRN (13:36)
[2019-03-22] MEDS: LACTATED RINGER'S 1,000 ML IV SCH ×2 (13:37→20:29)
--- NOTE | 2019-03-22 14:13 | Hospitalist Consultation ---
Date of Consultation March 22, 2019 Assessment & Plan (1) Spinal stenosis, lumbar region with neurogenic claudication: - S/P Lumbar Decompression and Fusion on 03/22 - Surgical management per primary service - Per review of operative report there was a small durotomy with suture repair - patient denies headache and currently is on bedrest until cleared by surgeon; given primary intraoperative repair this should prevent issue -- Monitor for spinal headache or CSF leak; monitor for any meningeal signs/irritation Present on Admission?: Yes (2) Asthma: - STABLE - no exacerbation at this time - Continue inhalers PRN and Singulair 10 mg daily Present on Admission?: Yes (3) Hypothyroidism: - STABLE - Levothyroxine 50 mcg daily Present on Admission?: Yes Supervising Physician Co-Signing Physician Notes Attending note: patient seen and examined with Polly Buckner PA-C. I agree with her HPI, history, exam, ROS and A/P. I personally reviewed the labs and imaging findings. patient laying flat in bed after spine surgery, needs to be on bedrest due to very small dural tear during operation. she admits to some back pain but it is tolerable she does not have an appetite no dyspnea or wheezing after OR - Asthma: breathing stable, no wheezing, continue Singulair, nebulizers - Hypothyroidism: continue on Synthroid History of Present Illness Reason for Consultation: Medical Management Attending Physician: Bryan Ann, DO History of Present Illness Ms. Smallwood is an 84 y/o female with PMHx of Asthma, Low Grade Bladder CA, Borderline HTN, Hypothyroidism, and Spinal Stenosis who is S/P Lumbar Decompression on 03/22. Patient is still a bit groggy on assessment but does answer questions appropriately with good recall. Reports current back pain and some radiating pain in the b/l hips. States pain is isolated to the hip bones and no pain upon palpation of the abdomen or suprapubic region. She reports no recent issues with her asthma and reports control on her home inhalers/medications. She denies H/O cardiac issues and denies OK/CHF/PE/DVT in the past. Allergies Allergy/AdvReac Type Severity Reaction Status Date / Time No Known Allergies Allergy Verified 03/22/19 06:09 Home Medications Home Medications Medication Instructions Recorded Confirmed Type Dulera 2 puff INHALATION BID PRN 04/11/18 03/22/19 History albuterol sulfate [ProAir HFA] 2 puff INHALATION Q6H PRN 04/11/18 03/22/19 History calcium carbonate [Calcium 500] 500 mg PO 3XWK 04/11/18 03/22/19 History fexofenadine [Consuelo Allergy] 180 mg PO DAILY PRN 04/11/18 03/22/19 History levalbuterol HCl [Xopenex] 0.63 mg INHALATION TID PRN 04/11/18 03/22/19 History levothyroxine 50 mcg PO QAM 04/11/18 03/22/19 History lorazepam 0.5 mg PO BID PRN 04/11/18 03/22/19 History montelukast 10 mg PO QPM 04/11/18 03/22/19 History multivitamin 1 tab PO DAILY 04/11/18 03/22/19 History meloxicam 15 mg tablet 15 mg PO QPM 03/02/19 03/22/19 History Patient History Medical History Borderline hyperlipidemia Borderline hypertension anxiety related HX: breast cancer s/p right breast mastectomy Hx of bladder cancer s/p partial resection; under surveillance Hx of cancer of uterus s/p hysterectomy Hx of migraines Macular degeneration of both eyes Spinal stenosis Asthma stable Chronic obstructive pulmonary disease + emphysema; stable GERD (gastroesophageal reflux disease) controlled Hypothyroidism Osteoarthritis Surgical History History of appendectomy History of bladder surgery PARTIAL RESECTION History of section History of colonoscopy History of mastectomy RT BREAST History of tonsillectomy History of tooth extraction History of total abdominal hysterectomy and bilateral salpingo-oophorectomy Hx of cataract surgery LEFT Family History Sister Family history of irritable bowel syndrome Social History Preferred Language: Chinese Communication Ability: 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 Beliefs That Will Affect Care: None Current Living Situation: Spouse Feels Safe at Home: Yes Smoking Status: Never smoker Do You Dip or Chew Tobacco: No ; Second Hand Exposure: No ; Hx Alcohol Use: Yes Alcohol type: wine Hx Substance Use: No Review of Systems Constitutional: + fatigue; no fever and no chills Eyes: no worsening vision Ear, Nose, Mouth, Throat: + dry mouth; no sore throat and no dysphagia Respiratory: no cough, no dyspnea and no wheezing Cardiovascular: no chest pain, no palpitations, no lightheadedness and no edema Gastrointestinal: no abdominal pain, no nausea, no vomiting, no constipation and no diarrhea/loose stools Genitourinary: no dysuria Musculoskeletal: + back pain and + joint pain (b/l hip pain) Integumentary: no rash Physical Exam Constitutional: WD/WN, vitals as above Eyes: + anicteric sclerae ENMT: Ears: no hearing impairment Throat: uvula midline Neck: normal visual inspection and trachea midline Respiratory: normal respiratory effort, lungs clear to auscultation Cardiovascular: RRR, no murmur, no edema Gastrointestinal (Abdomen): Inspection/Auscultation: normal bowel sounds Percussion/Palpation: abdomen soft; abdomen nontender Musculoskeletal: Head/Neck/Chest: normocephalic and head atraumatic Skin: no rashes, warm and dry Neurologic: no meningeal signs placed on strict flat bed rest; able to move feet and arms Psychiatric: Orientation: alert and oriented x 3 (but groggy) Results & Data Vital Signs (Past 12 Hours) Vital Signs Temp Pulse Pulse Resp BP Pulse Ox 03/22/19 13:00 78 14 139/68 98 03/22/19 12:30 78 14 134/72 99 03/22/19 12:09 36.5 C 79 12 144/70 H 100 03/22/19 11:45 36.2 C L 82 14 146/72 H 100 03/22/19 11:30 76 11 L 140/61 100 03/22/19 11:20 90 13 149/74 H 98 03/22/19 11:10 79 21 146/70 H 100 03/22/19 11:00 83 19 146/71 H 100 03/22/19 10:50 38.7 C H 89 12 154/77 H 100 03/22/19 06:20 36.8 C 83 20 145/86 H 98 PG Care Time/CCT Total # of Minutes Spent Total Time Spent with Patient: Total time spent is greater than 50% in coord ination of care (as documented) at patient's floor/unit and/or counseling patient:
[2019-03-22] MEDS: CEFAZOLIN 1000MG 1,000 MG/7.5 ML SYR IV SCH (16:06)
[2019-03-22] MEDS ORDERED: COUGH DROP (SUGAR FREE) LOZ 24 LOZ/1 BOX BUCCAL ONE (16:13)
[2019-03-22] MEDS: METOCLOPRAMIDE HCL INJ 5 MG/ML 2 ML VIAL IV PRN (19:43)
[2019-03-22] MEDS: TRAMADOL HCL 50 MG TABLET PO PRN (19:48)
[2019-03-22] MEDS: MONTELUKAST SODIUM 10 MG TABLET PO SCH (20:31)
[2019-03-22] MEDS: DOCUSATE SODIUM/SENNA 50/8.6MG TAB PO SCH (20:31)
[2019-03-23] MEDS: OXYCODONE HCL IR 5 MG TAB (IMMEDIATE RELEASE) PO PRN ×2 (00:55→11:14)
[2019-03-23] MEDS: CEFAZOLIN 1000MG 1,000 MG/7.5 ML SYR IV SCH (00:56)
[2019-03-23] MEDS: TRAMADOL HCL 50 MG TABLET PO PRN ×2 (02:21→07:32)
[2019-03-23] MEDS ORDERED: ARTIFICIAL TEARS OP PRN (02:47)
[2019-03-23] MEDS: LACTATED RINGER'S 1,000 ML IV SCH ×4 (02:50→23:57)
[2019-03-23] MEDS: ACETAMINOPHEN 1,000 MG/100 ML VIAL IV PRN ×2 (03:39→12:46)
[2019-03-23] MEDS: ONDANSETRON INJ 2 MG/ML 2 ML VIAL IV PRN ×2 (04:09→11:14)
[2019-03-23] MEDS: LEVOTHYROXINE SODIUM 50 MCG TABLET PO SCH (05:31)
[2019-03-23] MEDS: POLYETHYLENE (MIRALAX) 17 GM PACK PO SCH ×3 (05:31→17:48)
[2019-03-23 06:46] LABS: Basophils # (auto) 0.01 K/uL (0-0.2); Basophils % (auto) 0.1 %; Eosinophils # (auto) 0.05 K/uL (0-0.5); Eosinophils % (auto) 0.7 %; Hematocrit (blood only) 23.9 % (37-47); Hemoglobin 8.8 g/dL (12.0-16.0); Immature Granulocytes # (auto) 0.02 K/uL (0.00-0.02); Immature Granulocytes % (auto) 0.3 %; Lymphocytes # (auto) 0.96 K/uL (1.2-3.4); Lymphocytes % (auto) 12.5 %; Mean Corpuscular Hgb Conc 36.8 g/dL (32-36); Mean Corpuscular Volume 86.3 fL (80-100); Mean Platelet Volume 9.8 fL (7.4-10.4); Monocytes # (auto) 0.71 K/uL (0.11-0.59); Monocytes % (auto) 9.3 %; Neutrophils # (auto) 5.91 K/uL (1.4-6.5); Neutrophils % (auto) 77.1 %; Platelet Count 197 K/uL (130-400); RDW Coefficient of Variation 14.2 % (11.5-14.5); Red Blood Count 2.77 M/uL (4.2-5.4); White Blood Count 7.66 K/uL (4.8-10.8)
[2019-03-23 07:22] LABS: BUN Creatinine Ratio 15.8 (10-20); Calcium 8.1 mg/dl (8.5-10.1); Est GFR (African American) 87.4; Est GFR (Non-African American) 75.4; Potassium 4.1 mmol/L (3.5-5.1)
--- NOTE | 2019-03-23 07:49 | Anesthesiology Progress Note ---
Date of Service March 23, 2019 Anesthesia Post Procedure Vital Signs Vital Signs: Temp Pulse Pulse Resp BP Pulse Ox 03/23/19 03:07 37.5 C 80 16 128/70 92 03/22/19 23:28 37.0 C 85 16 139/57 L 95 03/22/19 20:00 36.8 C 72 18 144/74 H 95 03/22/19 14:59 36.3 C L 68 18 148/73 H 100 03/22/19 14:23 82 16 131/65 99 03/22/19 13:00 78 14 139/68 98 03/22/19 12:30 78 14 134/72 99 03/22/19 12:09 36.5 C 79 12 144/70 H 100 03/22/19 11:45 36.2 C L 82 14 146/72 H 100 03/22/19 11:30 76 11 L 140/61 100 03/22/19 11:20 90 13 149/74 H 98 03/22/19 11:10 79 21 146/70 H 100 03/22/19 11:00 83 19 146/71 H 100 03/22/19 10:50 38.7 C H 89 12 154/77 H 100 Pain Intensity Medial Back: Pain Intensity: 4 Notes Mental Status: alert / awake / arousable and participated in evaluation Patient Amnestic to Procedure: Yes Nausea / Vomiting: adequately controlled Pain: adequately controlled Airway Patency, RR, SpO2: stable & adequate BP & HR: stable & adequate Hydration State: stable & adequate Anesthetic Complications: no major complications apparent
--- NOTE | 2019-03-23 08:22 | Orthopedic Progress Note ---
Date of Service March 23, 2019 Assessment & Plan (1) Spinal stenosis, lumbar region with neurogenic claudication: Today will initiate bed to chair transfers ambulation in the room. If she tolerates this reasonably well will begin formal PT tomorrow. Present on Admission?: Yes Subjective Back pain is controlled. She denies any headaches. She is denies any leg pain. Physical Exam Physical Exam: On exam she is good strength testing. Results & Data Vital Signs (Past 12 Hours) Vital Signs Temp Pulse Resp BP Pulse Ox 03/23/19 07:46 100 03/23/19 07:13 37.5 C 72 18 120/65 93 03/23/19 03:07 37.5 C 80 16 128/70 92 03/22/19 23:28 37.0 C 85 16 139/57 L 95
[2019-03-23] MEDS: MULTIVITAMIN TAB PO SCH (09:22)
--- NOTE | 2019-03-23 12:19 | Hospitalist Progress Note ---
Date of Service March 23, 2019 Assessment & Plan (1) Spinal stenosis, lumbar region with neurogenic claudication: - S/P Lumbar Decompression and Fusion on 03/22 - Surgical management per primary service - Reports a lot of pain in the back and lower abdomen however pain is not reproduced with palpating the abdomen - possibility of radiating pain from the back? She feels that her pain is increasing her nausea and denies epigastric pain/chest pain/shortness of breath; had multiple bowel movements just the other day and does not feel constipated; Denies urinary symptoms - is starting to feel better with Reglan and Morphine - if abdominal pain continues may need to consider XR vs CT - low threshold further further imaging if pain continues to worsen or change in vitals - Per review of operative report there was a small durotomy with suture repair - patient denies headache; given primary intraoperative repair this should prevent issue -- Monitor for spinal headache or CSF leak; monitor for any meningeal signs/irritation (2) Acute blood loss anemia: - This is in the setting of surgical losses - does have nausea which may be better explained but uncontrolled pain - no CP, SOB, dizziness, and vitals are stable - Hgb today was 8.8 --- 8.0 and 7.9 on repeat - no signs of acute losses and will recheck in AM or sooner if change in condition - Given no underlying cardiac disease will hold on transfusion unless symptomatic Present on Admission?: No (3) Asthma: - STABLE - no exacerbation at this time - Continue inhalers PRN and Singulair 10 mg daily (4) Hypothyroidism: - STABLE - Levothyroxine 50 mcg daily Present on Admission?: Yes Subjective Continues to have low back pain with radiation to her b/l posterior hips. Mostly complaining of bloating and nausea. Denies headache and no meningeal signs present. Hemoglobin 8.8 with recheck around 8. States she tolerated breakfast this AM but only had some eggs and orange juice. Checked on multiple times today and continues with back pain and low abdominal pain and nausea/dry heaves. No chest pain or shortness of breath. Denies dizziness Review of Systems Constitutional: no fever and no chills Ear, Nose, Mouth, Throat: no sore throat and no dysphagia Respiratory: no cough and no dyspnea Cardiovascular: no chest pain and no lightheadedness Gastrointestinal: + abdominal pain (lower quadrants b/l), + bloating and + na usea; no vomiting, no constipation and no diarrhea/loose stools Genitourinary: no dysuria Musculoskeletal: + back pain Integumentary: no rash Neurologic: no tingling and no numbness Physical Exam Constitutional: WD/WN, vitals as above Eyes: + anicteric sclerae ENMT: Ears: no hearing impairment Throat: uvula midline Neck: normal visual inspection and trachea midline Respiratory: normal respiratory effort, lungs clear to auscultation Cardiovascular: RRR, no murmur, no edema Gastrointestinal (Abdomen): Inspection/Auscultation: + abdomen distended and normal bowel sounds Percussion/Palpation: abdomen soft; abdomen nontender Musculoskeletal: Head/Neck/Chest: normocephalic and head atraumatic Skin: no rashes, warm and dry Neurologic: no meningeal signs Psychiatric: Orientation: alert and oriented x 3 Results & Data Vital Signs (Past 12 Hours) Vital Signs Temp Pulse Resp BP Pulse Ox 03/23/19 07:46 100 03/23/19 07:13 37.5 C 72 18 120/65 93 03/23/19 03:07 37.5 C 80 16 128/70 92 PG Care Time/CCT Total # of Minutes Spent Total Time Spent with Patient: Total time spent is greater than 50% in coordination of care (as documented) at patient's floor/unit and/or counseling patient:
[2019-03-23] MEDS ORDERED: MoRPHine SULFATE 2 MG/ML CARP IV STA (16:44)
[2019-03-23] MEDS ORDERED: MoRPHine SULFATE 2 MG/ML CARP ONE (17:01)
[2019-03-23] MEDS: METOCLOPRAMIDE HCL INJ 5 MG/ML 2 ML VIAL IV PRN (17:07)
[2019-03-23 17:31] LABS: Hemoglobin 7.9 g/dL (12.0-16.0)
[2019-03-23] MEDS: MONTELUKAST SODIUM 10 MG TABLET PO SCH (20:43)
[2019-03-23] MEDS: DOCUSATE SODIUM/SENNA 50/8.6MG TAB PO SCH (20:43)
[2019-03-24] MEDS: POLYETHYLENE (MIRALAX) 17 GM PACK PO SCH ×4 (00:39→18:17)
[2019-03-24] MEDS: ONDANSETRON INJ 2 MG/ML 2 ML VIAL IV PRN (04:21)
[2019-03-24] MEDS: LACTATED RINGER'S 1,000 ML IV SCH ×3 (05:29→18:19)
[2019-03-24] MEDS: LEVOTHYROXINE SODIUM 50 MCG TABLET PO SCH (05:30)
[2019-03-24 06:27] LABS: Hematocrit (blood only) 22.7 % (37-47); Hemoglobin 7.8 g/dL (12.0-16.0); Mean Corpuscular Hgb Conc 34.4 g/dL (32-36); Mean Platelet Volume 9.6 fL (7.4-10.4); Platelet Count 173 K/uL (130-400); RDW Coefficient of Variation 14.1 % (11.5-14.5); RDW Standard Deviation 44.4 fL (36.4-46.3); Red Blood Count 2.64 M/uL (4.2-5.4); White Blood Count 7.15 K/uL (4.8-10.8)
[2019-03-24 06:58] LABS: BUN Creatinine Ratio 17.4 (10-20); Calcium 7.8 mg/dl (8.5-10.1); Creatinine Clr Calc Pharmacy 64.4 ml/min; Est GFR (African American) 101.9; Est GFR (Non-African American) 87.9; Potassium 3.8 mmol/L (3.5-5.1)
[2019-03-24] MEDS: ACETAMINOPHEN 500 MG TAB PO PRN (07:30)
[2019-03-24] MEDS: TRAMADOL HCL 50 MG TABLET PO PRN ×3 (07:30→20:35)
[2019-03-24] MEDS ORDERED: MOMETASONE/FORMOTEROL 200MCG/5MCG INH PRN (09:24)
[2019-03-24] MEDS: MULTIVITAMIN TAB PO SCH (09:24)
[2019-03-24] MEDS: LORazepam 0.5 MG TAB PO PRN (09:53)
[2019-03-24] MEDS ORDERED: SODIUM CHLORIDE 0.9% 250 ML IV PRN ×3 (09:54→10:16)
[2019-03-24] MEDS ORDERED: IOVERSOL 100ml IV PRN (10:38)
--- NOTE | 2019-03-24 10:53 | CT Scan Report ---
CT abd pelvis IV con only CLINICAL HISTORY: Lower Quadrant Pain/Acute Anemia COMPARISON STUDY: 02/04/2018 TECHNIQUE: The patient was scanned in a dynamic helical fashion during intravenous administration of 94 cc of Optiray 320. A dose lowering technique was utilized adhering to the principles of ALARA. CT DOSE: 918.04 mGy.cm FINDINGS: Lower chest: There are bilateral pleural effusions, with associated bibasilar atelectasis/consolidati on. There are high attenuation foci within the lower lobes left greater than right, possibly secondar y to aspiration. Liver: The contrast-enhanced liver is normal in size, contour, and attenuation. There is no intrahepa tic biliary ductal dilatation. The hepatic veins and portal veins are patent. Gallbladder: Mildly distended. No calculi identified. Spleen: Normal in size and attenuation. Pancreas: Unremarkable. Adrenal glands: Unremarkable. Kidneys: No solid renal masses are visualized. There is bilateral perinephric fluid. There is a nonob structing 4 mm lower pole right renal calculus. Bowel: There are no transition zones indicate bowel obstruction. By history the appendix is surgicall y absent. There is no acute diverticulitis. There are a few scattered colonic diverticula present. Th ere is a moderate amount of fluid within the right colon. Peritoneum: There is no intraperitoneal free air or abdominal ascites. Vasculature: The abdominal aorta is normal in course and caliber. Adenopathy: None. Pelvic viscera: The uterus appears surgically absent. There is presacral fluid/edema. There is an ind welling Dong catheter Skeletal structures: There are extensive postsurgical changes present within the lumbar spine. There is mild generalized subcutaneous edema. There is scattered areas of soft tissue gas consistent with r ecent surgery. There is a posterior surgical drain. IMPRESSION: 1. Postsurgical changes of an L2-L5 spinal decompression and fusion 2. No evidence of bowel obstruction. No evidence of free air 3. Bilateral pleural effusions with associated basilar atelectasis/consolidation. There is high atten uation material within the lower lobes raising the possibility of aspiration 4. Nonobstructing lower pole right renal calculus 5. Nonspecific perinephric fluid 6. Presacral edema and body wall edema, possibly secondary to fluid overload Electronically signed by: Ben Espinoza M.D. 03/24/2019 10:52 AM
--- NOTE | 2019-03-24 12:21 | Orthopedic Progress Note ---
Date of Service March 24, 2019 Assessment & Plan (1) Spinal stenosis, lumbar region with neurogenic claudication: At this time we will transfuse 2 units of blood as her creatinine is has continued to fall. She was quite dizzy with sitting up today. Also will discontinue oxycodone. She will continue to go with a limited diet. Present on Admission?: Yes Subjective Patient complaining of abdominal discomfort and back pain. Her leg symptoms are improved. She denies any headaches at this time. She does have any episodes of nausea. Physical Exam Physical Exam: On exam she is neurologically intact. She is quite tender to palpation of her abdomen. Results & Data Vital Signs (Past 12 Hours) Vital Signs Temp Pulse Pulse Resp BP BP Pulse Ox 03/24/19 11:17 37.0 C 90 18 159/78 H 100 03/24/19 11:15 36.6 C 129 H 16 158/89 H 98 03/24/19 10:59 36.7 C 125 H 20 151/82 H 94 03/24/19 10:57 36.7 C 125 H 20 151/82 H 94 03/24/19 09:40 126 H 160/75 H 03/24/19 07:02 37.2 C 77 18 163/75 H 93
--- NOTE | 2019-03-24 14:21 | Hospitalist Progress Note ---
Date of Service March 24, 2019 Assessment & Plan (1) Paroxysmal atrial fibrillation: - Patient noted to have a HR around 120-130 this AM with EKG revealing A Fib with RVR - Transported to telemetry however quickly converted back to NSR with initiation of blood transfusion - possibly this was induced by an acute blood loss anemia - Daughter states her mother has mentioned palpitations/flutters in the past but nothing has ever shown up in the past - Could consider holter monitor to determine if this is a frequent rhythm for her since she was largely asymptomatic when in A Fib this AM - Given recent spinal surgery and need for transfusion will hold heparin gtt given short duration of rhythm - Will continue to monitor on telemetry at least overnight - if no further A Fib is noted can likely return to medical tomorrow Present on Admission?: No (2) Spinal stenosis, lumbar region with neurogenic claudication: - S/P Lumbar Decompression and Fusion on 03/22 - Surgical management per primary service - Reports a lot of pain in the back and lower abdomen however pain is not reproduced with palpating the abdomen - possibility of radiating pain from the back as it may be more hip/bone type discomfort? She feels that her pain is increasing her nausea and denies epigastric pain/chest pain/shortness of breath; had multiple bowel movements just the other day prior to surgery and does not feel constipated however there is moderate liquid in the bowel; She also has a gluten intolerance intermittently -- CT without infectious findings - shows moderate amount of fluid within R colon; presacral fluid/edema, SC edema, and perinephric fluid but nonobstructing stone - Per review of operative report there was a small durotomy with suture repair - patient denies headache; given primary intraoperative repair this should prevent issue -- Monitor for spinal headache or CSF leak; monitor for any meningeal signs/irritation Present on Admission?: Yes (3) Acute blood loss anemia: - This is in the setting of surgical losses - does have nausea which may be better explained but uncontrolled pain - Hgb stable but remaining around 7.8 - and develop A Fib with RVR this AM and dizziness when trying to move - transfused 2 units PRBC Present on Admission?: No (4) Asthma: - STABLE - no exacerbation at this time - Continue inhalers PRN and Singulair 10 mg daily (5) Hypothyroidism: - STABLE - Levothyroxine 50 mcg daily Subjective Patient continues to report a b/l lower abdominal pain with nausea and dry heaves. She does report that the pain medication is helping but then returns. Patient's daughter does report that the patient does commonly get nausea/dry heaves when she is in pain. Given ongoing nature a CT was performed without acute findings. Does have evidence of possible atelectasis vs consolidation - high attenuation which could be aspiration, nonobstructing lower pole renal calculus and nonspecific perinephric fluid, also presence of presacral edema and body wall edema, there is also moderate amounts of fluid in the R bowel. She was also noted to have a rapid HR with EKG revealed A Fib however was asymptomatic Review of Systems Constitutional: + weakness and + anorexia; no fever and no chills Ear, Nose, Mouth, Throat: no sore throat and no dysphagia Respiratory: no cough and no dyspnea Cardiovascular: + lightheadedness; no chest pain, no palpitations and no edema Gastrointestinal: + abdominal pain (lower quadrants b/l - but possibly more hip region), + bloating and + nausea; no vomiting, no constipation and no diarrhea/loose stools Genitourinary: no dysuria Musculoskeletal: + back pain Integumentary: no rash Physical Exam Constitutional: WD/WN, vitals as above Eyes: + anicteric sclerae ENMT: Ears: no hearing impairment Throat: uvula midline Neck: normal visual inspection and trachea midline Respiratory: normal respiratory effort, lungs clear to auscultation Auscultation: + diminished lung sounds (at bases b/l) Cardiovascular: Rate/Rhythm: + tachycardic Vessels: no JVD Extremities: no edema Gastrointestinal (Abdomen): Inspection/Auscultation: normal bowel sounds Percussion/Palpation: abdomen soft; abdomen nontender Musculoskeletal: Head/Neck/Chest: normocephalic and head atraumatic Skin: no rashes, warm and dry Neurologic: no meningeal signs Psychiatric: Orientation: alert and oriented x 3 Results & Data Vital Signs (Past 12 Hours) Vital Signs Temp Pulse Pulse Resp BP BP Pulse Ox 03/24/19 14:17 36.6 C 77 18 144/79 H 98 03/24/19 12:51 77 03/24/19 11:17 37.0 C 90 18 159/78 H 100 03/24/19 11:15 36.6 C 129 H 16 158/89 H 98 03/24/19 10:59 36.7 C 125 H 20 151/82 H 94 03/24/19 10:57 36.7 C 125 H 20 151/82 H 94 03/24/19 09:40 126 H 160/75 H 03/24/19 07:02 37.2 C 77 18 163/75 H 93 PG Care Time/CCT Total # of Minutes Spent Total Time Spent with Patient: Total time spent is greater than 50% in coordination of care (as documented) at patient's floor/unit and/or counseling patient:
[2019-03-24] MEDS ORDERED: ALUMINUM/MAGNESIUM SUSP 18 ML, LIDOCAINE HCL VISCOUS 2% 6 ML, BARCODE IDENTIFIER 1 EA PO ONE (15:15)
[2019-03-24] MEDS: DOCUSATE SODIUM/SENNA 50/8.6MG TAB PO SCH (20:32)
[2019-03-24] MEDS: MONTELUKAST SODIUM 10 MG TABLET PO SCH (20:33)
[2019-03-25] MEDS: POLYETHYLENE (MIRALAX) 17 GM PACK PO SCH ×4 (00:01→17:30)
[2019-03-25] MEDS: TRAMADOL HCL 50 MG TABLET PO PRN (00:10)
[2019-03-25] MEDS ORDERED: METOPROLOL TARTRATE 1 MG/ML VIAL IV STA ×2 (01:36→05:44)
[2019-03-25] MEDS: MoRPHine SULFATE 2 MG/ML CARP IV PRN ×4 (03:10→21:46)
[2019-03-25 03:53] LABS: Appearance Urine Clear (Clear); Bacteria Urine Automated Negative (Negative); Bilirubin Urine Negative (Negative); Blood Urine 1+ (Negative); Color Urine Yellow; Glucose Urine UA Negative (Negative); Ketones Urine Trace (Negative); Leukocyte Esterase Urine Trace (Negative); Nitrite Urine Negative (Negative); Protein Urine Negative (Negative); Specific Gravity Urine 1.015 (1.000-1.030); Urobilinogen Urine Negative (Negative); pH Urine 7.5 (4.5-7.5)
[2019-03-25] MEDS ORDERED: METOPROLOL TARTRATE 1 MG/ML VIAL IV ONE (05:46)
[2019-03-25] MEDS: LACTATED RINGER'S 1,000 ML IV SCH (06:27)
--- NOTE | 2019-03-25 06:38 | XRay Report ---
XR chest 1V portable CLINICAL HISTORY: Chest pain. Nausea. COMPARISON STUDY: Chest radiograph October 14, 2018. FINDINGS: Lung volumes are normal. There is no pneumothorax. There are small bilateral pleural effusi ons and mild bibasilar opacities. Cardiac size is normal. There is no evidence for pulmonary edema. IMPRESSION: Small bilateral pleural effusions and mild bibasilar opacities. Electronically signed by: Abad Spaulding M.D. 03/25/2019 6:37 AM
[2019-03-25 06:41] LABS: BUN Creatinine Ratio 15.5 (10-20); Calcium 8.4 mg/dl (8.5-10.1); Creatinine Clr Calc Pharmacy 72.5 ml/min; Est GFR (African American) 105.9; Est GFR (Non-African American) 91.4; Potassium 3.5 mmol/L (3.5-5.1)
[2019-03-25 06:51] LABS: Troponin I 0.034 ng/ml (0-0.045)
--- NOTE | 2019-03-25 07:06 | Progress Note ---
Date of Service March 25, 2019 Assessment & Plan (1) Paroxysmal atrial fibrillation: Call from nurse regarding elevated BP, Pafib, chest discomfort Order; EKG, BMP, trop, TSH, CXR Plan; Give Lopressor IV 5 mg. Signed out to day team. Results & Data Vital Signs (Past 12 Hours) Vital Signs Temp Pulse Pulse Pulse Resp BP BP 03/25/19 06:13 36.7 C 96 H 184/82 H 03/25/19 06:00 36.5 C 68 20 166/85 H 03/25/19 05:57 83 181/82 H 03/25/19 05:48 83 168/106 H 03/25/19 04:58 75 03/25/19 04:00 36.7 C 83 19 180/93 H 03/25/19 02:29 96 H 184/76 H 03/25/19 01:13 184/78 H 03/25/19 00:12 84 179/83 H 03/24/19 23:38 36.9 C 85 20 183/77 H 03/24/19 19:34 36.9 C 77 18 172/81 H Pulse Ox 03/25/19 06:13 2 L 03/25/19 06:00 98 03/25/19 05:57 97 03/25/19 05:48 03/25/19 04:58 03/25/19 04:00 97 03/25/19 02:29 03/25/19 01:13 03/25/19 00:12 03/24/19 23:38 97 03/24/19 19:34 96 PG Care Time/CCT Total # of Minutes Spent Total Time Spent with Patient: Total time spent is greater than 50% in coordination of care (as documented) at patient's floor/unit and/or counseling patient:
[2019-03-25] MEDS: MULTIVITAMIN TAB PO SCH (08:54)
[2019-03-25 09:37] LABS: Hematocrit (blood only) 31.3 % (37-47); Mean Corpuscular Hgb Conc 35.1 g/dL (32-36); Mean Corpuscular Volume 84.6 fL (80-100); Mean Platelet Volume 9.3 fL (7.4-10.4); Platelet Count 180 K/uL (130-400); RDW Coefficient of Variation 13.7 % (11.5-14.5); RDW Standard Deviation 42.4 fL (36.4-46.3); White Blood Count 8.53 K/uL (4.8-10.8)
--- NOTE | 2019-03-25 10:07 | Orthopedic Progress Note ---
Date of Service March 25, 2019 Assessment & Plan (1) Spinal stenosis, lumbar region with neurogenic claudication: This time initiate physical therapy as tolerated. Monitor JOCELYNE output anticipate possible discontinue of drain tomorrow. Present on Admission?: Yes Subjective Patient stating she is back pain is much improved today. Abdominal pain much improved today. She is passing positive flatus. No leg pain. No nausea vomiting or headaches. Physical Exam Physical Exam: On exam she appears much more comfortable today. She has good strength testing. No abdominal discomfort to palpation. Results & Data Vital Signs (Past 12 Hours) Vital Signs Temp Pulse Pulse Pulse Resp BP BP 03/25/19 06:13 36.7 C 96 H 184/82 H 03/25/19 06:00 36.5 C 68 20 166/85 H 03/25/19 05:57 83 181/82 H 03/25/19 05:48 83 168/106 H 03/25/19 04:58 75 03/25/19 04:00 36.7 C 83 19 180/93 H 03/25/19 02:29 96 H 184/76 H 03/25/19 01:13 184/78 H 03/25/19 00:12 84 179/83 H 03/24/19 23:38 36.9 C 85 20 183/77 H Pulse Ox 03/25/19 06:13 2 L 03/25/19 06:00 98 03/25/19 05:57 97 03/25/19 05:48 03/25/19 04:58 03/25/19 04:00 97 03/25/19 02:29 03/25/19 01:13 03/25/19 00:12 03/24/19 23:38 97
[2019-03-25] MEDS: ONDANSETRON INJ 2 MG/ML 2 ML VIAL IV PRN ×2 (10:25→15:14)
[2019-03-25] MEDS: LEVOTHYROXINE SODIUM 50 MCG TABLET PO SCH (11:42)
[2019-03-25] MEDS: HydrALAZINE HCL 20 MG/ML VIAL IV PRN ×2 (11:45→17:25)
--- NOTE | 2019-03-25 12:18 | Hospitalist Progress Note ---
Date of Service March 25, 2019 Assessment & Plan (1) Paroxysmal atrial fibrillation: - Patient noted to have a HR around 120-130 on 03/24 with EKG revealing A Fib with RVR - quickly converted to NSR and since has intermittent bursts of A Fib which spontaneously aborts -- Daughter states her mother has mentioned palpitations/flutters in the past but nothing has ever shown up in the past - Recommend holter monitor to determine if this is a frequent rhythm for her since she was largely asymptomatic when in A Fib - Given recent spinal surgery and need for transfusion will hold heparin gtt given short duration of rhythm - Will continue to monitor on telemetry - if no further A Fib is noted can likely return to medical tomorrow (2) Spinal stenosis, lumbar region with neurogenic claudication: - S/P Lumbar Decompression and Fusion on 03/22 - Surgical management per primary service; Pain appears to finally be improving -- Pain in the back and lower abdomen - possibility of radiating pain from the back as it may be more hip/bone type discomfort? She feels that her pain is increasing her nausea and denies epigastric pain/chest pain/shortness of breath; there is moderate liquid in the bowel; She also has a gluten intolerance intermittently -- CT without infectious findings - shows moderate amount of fluid within R colon; presacral fluid/edema, SC edema, and perinephric fluid but nonobstructing stone - Per review of operative report there was a small durotomy with suture repair - patient denies headache; given primary intraoperative repair this should prevent issue -- Monitor for spinal headache or CSF leak; monitor for any meningeal signs/irritation (3) Acute blood loss anemia: - This is in the setting of surgical losses - does have nausea which may be better explained by uncontrolled pain - Rransfused 2 units PRBC with Hgb around 11 currently (4) Asthma: - STABLE - no exacerbation at this time - Continue inhalers PRN and Singulair 10 mg daily (5) Hypothyroidism: - STABLE - Levothyroxine 50 mcg daily Subjective Reports her back and lower abdomen/hip pain is improving today but still present. Did attempt to eat something for breakfast but still having intermittent nausea. She has not moved her bowels and wants to try some prune juice/butter. She continues to have short burst of A Fib on monitor but largely NSR. She was noted to have chest pressure and nausea this AM however EKG without ischemic findings and troponins neg x 2. Review of Systems Constitutional: + weakness and + anorexia; no fever and no chills Respiratory: no cough and no dyspnea Cardiovascular: no chest pain, no palpitations, no lightheadedness and no edema Gastrointestinal: + abdominal pain (lower quadrants b/l - but possibly more hip region), + nausea and + constipation; no bloating, no vomiting and no diarrhea/loose stools Genitourinary: no dysuria Musculoskeletal: + back pain Physical Exam Constitutional: WD/WN, vitals as above Eyes: + anicteric sclerae ENMT: Ears: no hearing impairment Throat: uvula midline Neck: normal visual inspection and trachea midline Respiratory: normal respiratory effort, lungs clear to auscultation Auscu ltation: + diminished lung sounds (at bases b/l) Cardiovascular: RRR, no murmur, no edema Vessels: no JVD Extremities: no edema Gastrointestinal (Abdomen): Inspection/Auscultation: normal bowel sounds Percussion/Palpation: abdomen soft; abdomen nontender Musculoskeletal: Head/Neck/Chest: normocephalic and head atraumatic Skin: no rashes, warm and dry Neurologic: no meningeal signs Psychiatric: Orientation: alert and oriented x 3 Results & Data Vital Signs (Past 12 Hours) Vital Signs Temp Pulse Pulse Pulse Resp BP BP 03/25/19 11:44 37.0 C 69 21 176/78 H 03/25/19 06:13 36.7 C 96 H 184/82 H 03/25/19 06:00 36.5 C 68 20 166/85 H 03/25/19 05:57 83 181/82 H 03/25/19 05:48 83 168/106 H 03/25/19 04:58 75 03/25/19 04:00 36.7 C 83 19 180/93 H 03/25/19 02:29 96 H 184/76 H 03/25/19 01:13 184/78 H Pulse Ox 03/25/19 11:44 96 03/25/19 06:13 2 L 03/25/19 06:00 98 03/25/19 05:57 97 03/25/19 05:48 03/25/19 04:58 03/25/19 04:00 97 03/25/19 02:29 03/25/19 01:13 PG Care Time/CCT Total # of Minutes Spent Total Time Spent with Patient: Total time spent is greater than 50% in coordina tion of care (as documented) at patient's floor/unit and/or counseling patient:
[2019-03-25] MEDS: MONTELUKAST SODIUM 10 MG TABLET PO SCH (19:38)
[2019-03-25] MEDS: DOCUSATE SODIUM/SENNA 50/8.6MG TAB PO SCH (19:38)
[2019-03-26] MEDS: POLYETHYLENE (MIRALAX) 17 GM PACK PO SCH ×2 (00:17→06:42)
[2019-03-26] MEDS: MoRPHine SULFATE 2 MG/ML CARP IV PRN ×4 (02:58→18:17)
[2019-03-26] MEDS: LEVOTHYROXINE SODIUM 50 MCG TABLET PO SCH (06:41)
[2019-03-26] MEDS: MULTIVITAMIN TAB PO SCH (07:58)
--- NOTE | 2019-03-26 08:16 | Orthopedic Progress Note ---
Date of Service March 26, 2019 Assessment & Plan (1) Spinal stenosis, lumbar region with neurogenic claudication: The patient is improving postoperative day #4. Her abdominal pain is significantly improved. She is still having some issues medically however. We will continue with GI DVT prophylaxis. We will continue with physical therapy and mobilization efforts. Subjective Patient was seen bedside in room 285. She is alert and oriented this morning. She is having some pain in the back itself but no abdominal pain. She is not having any numbness or tingling in the legs themselves. He feels that the sensation in her legs has also improved. She denies any other numbness, tingling, or paresthesias. Physical Exam Physical Exam: On exam she is alert and oriented. Her abdomen soft nontender. Sensation is intact to light touch she has full strength in both of her lower extremities. Her dressing is clean dry and intact. JOCELYNE drains in place as put out 30 cc on the left shift and 35 on the shift previous. Her calves are supple and nontender. Results & Data Vital Signs (Past 12 Hours) Vital Signs Temp Pulse Pulse Resp BP Pulse Ox 03/26/19 03:00 37.4 C 80 20 161/75 H 98 03/26/19 02:22 75 03/25/19 23:59 37.1 C 82 18 148/66 H 98
[2019-03-26 10:19] LABS: Hematocrit (blood only) 31.5 % (37-47); Hemoglobin 11.1 g/dL (12.0-16.0)
[2019-03-26 10:49] LABS: BUN Creatinine Ratio 15.7 (10-20); Calcium 8.7 mg/dl (8.5-10.1); Creatinine Clr Calc Pharmacy 62.4 ml/min; Est GFR (African American) 99.5; Est GFR (Non-African American) 85.8; Potassium 3.1 mmol/L (3.5-5.1)
[2019-03-26] MEDS ORDERED: Nursing to Pharmacy Communication ONE (11:51)
[2019-03-26] MEDS: TRAMADOL HCL 50 MG TABLET PO PRN (17:10)
--- NOTE | 2019-03-26 21:15 | Hospitalist Progress Note ---
Date of Service March 26, 2019 Assessment & Plan (1) Paroxysmal atrial fibrillation: - Patient noted to have a HR around 120-130 on 03/24 with EKG revealing A Fib with RVR - quickly converted to NSR and since has intermittent bursts of A Fib which spontaneously aborts over past 24 hours she has not had any afib, just sinus with occasional PAC's afib seemed to resolve with PRBC transfusion and correction of volume loss no plans for anticoagulation at this time, no known history of afib and afib was extremely brief plan to get Holter monitor after discharge to determine if she actually has frequent runs of afib if so, then she can follow up with cardiology and discuss management, ant icoagulation etc (2) Spinal stenosis, lumbar region with neurogenic claudication: - S/P Lumbar Decompression and Fusion on 03/22 - Surgical management per primary service; Pain very slow to improve PAIN-- CT without infectious findings - shows moderate amount of fluid within R colon; presacral fluid/edema, SC edema, and perinephric fluid but nonobstructing stone - Per review of operative report there was a small durotomy with suture repair - patient denies headache; given primary intraoperative repair this should prevent issue transfer back to surgical floor will need rehab on discharge (3) Acute blood loss anemia: - This is in the setting of surgical losses - does have nausea which may be better explained by uncontrolled pain - Transfused 2 units PRBC for Hb of 7.8, patient was symptomatic with HR in 120- 130's, brief afib Hb has been stable at 11 for two days, continue to follow, no signs of bleeding (4) Asthma: - STABLE - no exacerbation at this time - Continue inhalers PRN and Singulair 10 mg daily (5) Hypothyroidism: - STABLE - Levothyroxine 50 mcg daily (6) Hypokalemia: mild at 3.1 placed on KCl 20 BID repeat tomorrow (7) Hyponatremia: improving slowly at 128 could be some pain induced SIADH repeat tomorrow Subjective patient still having a lot of pain in her lower back she thought that her pain would be better at this point, though she would be doing more otherwise she feels well no chest pain, no dyspnea, no fever/chills, no abdominal issues reviewed her labs, Hb 11.1 Cr stable, K is slightly low at 3.1 and Na up slightly at 128 reviewed tele with cafeteria monitor, just sinus rhythm with occasional PACs, no afib seen okay to transfer back to surgical floor updated daughter at the bedside Review of Systems Review of Systems: All systems reviewed & are unremarkable except as noted in HPI & below Musculoskeletal: + back pain, + joint pain, + stiffness, + limited range of motion (back) and + muscle weakness Physical Exam Constitutional: WD/WN, vitals as above Eyes: PERRL, conjunctivae normal, anicteric sclerae ENMT: external ear and nose normal, oropharynx normal Neck: trachea midline, no thyromegaly Respiratory: normal respiratory effort, lungs clear to auscultation Cardiovascular: RRR, no murmur, no edema Gastrointestinal (Abdomen): normal bowel sounds, soft, nontender, no hepatosplenomegaly Musculoskeletal: Head/Neck/Chest: normocephalic and head atraumatic Spine: + limited thoraco-lumbar ROM (due to pain, weakness) Extremities: extremities normal to inspection and strength 5/5 throughout Skin: no rashes, warm and dry Neurologic: patellar DTR's 2+ bilat, sensation intact and PERRL, EOMI, accommodation nl, no face palsy, no dysarthria Psychiatric: A+Ox3, euthymic affect Lymphatic: no cervical or axillary lymphadenopathy Results & Data Vital Signs (Past 12 Hours) Vital Signs Temp Pulse Resp BP Pulse Ox 03/26/19 15:20 37.2 C 85 16 145/70 H 94 03/26/19 12:04 37.0 C 73 18 171/71 H 91 Laboratory Results Laboratory Results - last 24 hr 03/26/19 03/26/19 10:04 10:04 Hgb 11.1 L Hct 31.5 L Sodium 128 L Potassium 3.1 L Chloride 91 L Carbon Dioxide 29 Anion Gap 8.0 BUN 9 Creatinine 0.58 L Est Cr Clr Drug Dosing 62.4 Est GFR ( Amer) 99.5 Est GFR (Non-Af Amer) 85.8 BUN/Creatinine Ratio 15.7 Glucose 109 H Calcium 8.7 Medications Administered Current Inpatient Medications Acetaminophen (Tylenol) 1,000 mg PO Q8H PRN PRN Reason: MILD Pain Rating 1,2,3 Stop: 04/21/19 12:01 Last Admin: 03/24/19 07:30 Dose: 1,000 mg Documented by: Al Hydrox/Mg Hydrox/Simethicone (Maalox) 30 ml PO Q6H PRN PRN Reason: Dyspepsia Stop: 04/21/19 12:01 Albuterol (Proair Hfa) 2 puffs INH Q6H PRN PRN Reason: Shortness Of Breath Stop: 04/21/19 12:59 Artificial Tears (Artificial Tears) 1 drops OP PRN PRN PRN Reason: Dryness Stop: 04/22/19 02:46 Bisacodyl (Dulcolax) 10 mg OR DAILY PRN PRN Reason: Constipation Stop: 04/21/19 12:01 Diphenhydramine HCl (Benadryl Capsule) 25 mg PO Q6H PRN PRN Reason: Allergic Rhinitis/Insomnia Stop: 04/21/19 12:01 Last Admin: 03/26/19 11:46 Dose: 25 mg Documented by: Famotidine (Pepcid) 20 mg PO Q12H PRN PRN Reason: Dyspepsia Stop: 04/21/19 12:01 Fexofenadine HCl (Consuelo) 180 mg PO DAILY PRN PRN Reason: ALLERGY RELIEF Stop: 04/21/19 12:01 Hydralazine HCl (Hydralazine Hcl) 5 mg IV Q6H PRN PRN Reason: SBP > 170 or DBP >90 Stop: 04/24/19 10:52 Last Admin: 03/25/19 17:25 Dose: 5 mg Documented by: Hydroxyzine HCl (Vistaril) 25 mg PO Q8H PRN PRN Reason: Anxiety Stop: 04/21/19 12:01 Sodium Chloride (Nss) 250 mls @ 15 mls/hr IV .[id number] PRN PRN Reason: For Transfusion Stop: 04/23/19 09:53 Influenza Virus Vaccine Quadrival (Flu Vaccine, Do Not Administer) 1 ea N/A PRN PRN PRN Reason: Notification Stop: 04/21/19 12:01 Ioversol (Optiray 320 100ml) 94 ml IV ONCE PRN PRN Reason: Interaction Checking Stop: 03/28/19 10:37 Last Admin: 03/24/19 10:38 Dose: 94 ml Documented by: Levalbuterol HCl (Xopenex 0.63 Mg/3 Ml Neb) 0.63 mg INH TIDR PRN PRN Reason: Shortness Of Breath Stop: 04/21/19 12:01 Levothyroxine Sodium (Synthroid) 50 mcg PO DAILYBB ANAI Stop: 04/22/19 06:29 Last Admin: 03/26/19 06:41 Dose: 50 mcg Documented by: Lorazepam (Ativan) 0.5 mg PO Q8H PRN PRN Reason: Sedation/Anxiety Stop: 04/21/19 12:01 Last Admin: 03/24/19 09:53 Dose: 0.5 mg Documented by: Magnesium Hydroxide (Milk Of Magnesia) 30 ml PO DAILY PRN PRN Reason: Constipation Stop: 04/21/19 12:01 Metoclopramide HCl (Reglan) 10 mg IV Q6H PRN PRN Reason: Nausea &/or Vomiting Stop: 04/21/19 12:01 Last Admin: 03/23/19 17:07 Dose: 10 mg Documented by: Mometasone Furoate/Formoterol Fumar (Dulera Inhaler) 2 ea INH BID PRN PRN Reason: SHORTNESS OF BREATH Stop: 04/23/19 09:23 Montelukast Sodium (Singulair) 10 mg PO QPM ANAI Stop: 04/21/19 20:59 Last Admin: 03/25/19 19:38 Dose: 10 mg Documented by: Morphine Sulfate (Morphine Sulfate) 2 mg IV Q4H PRN PRN Reason: Pain Stop: 04/06/19 18:07 Last Admin: 03/26/19 18:17 Dose: 2 mg Documented by: Multivitamins (Multivitamin Tab) 1 tab PO DAILY ANAI Stop: 04/22/19 08:59 Last Admin: 03/26/19 07:58 Dose: 1 tab Documented by: Naloxone HCl (Narcan) 0.1 mg IV Q5M PRN; Protocol PRN Reason: Oversedation/Resp Depression Stop: 04/21/19 12:01 Ondansetron HCl (Zofran) 4 mg IV Q6H PRN PRN Reason: Nausea &/or Vomiting Stop: 04/21/19 12:01 Last Admin: 03/25/19 15:14 Dose: 4 mg Documented by: Pneumococcal Polyvalent Vaccine (Pneumococcal Vacc, Do Not Administer) 1 ea N/A PRN PRN PRN Reason: Notification Stop: 04/21/19 12:01 Potassium Chloride (Klor-Con M20) 20 meq PO BID ANAI Stop: 03/28/19 09:01 Senna/Docusate Sodium (Senokot S) 2 tab PO HS ANAI Stop: 04/21/19 20:59 Last Admin: 03/25/19 19:38 Dose: 2 tab Documented by: Sodium Biphosphate/Sodium Phosphate (Fleet Enema) 132 ml OR ONE PRN PRN Reason: Constipation Stop: 04/21/19 12:01 Tramadol HCl (Ultram) 50 - 100 mg PO Q4H PRN PRN Reason: Moderate-Severe pain Stop: 04/21/19 12:01 Last Admin: 03/26/19 17:10 Dose: 100 mg Documented by: PG Care Time/CCT Total # of Minutes Spent Total Time Spent with Patient: Total time spent is greater than 50% in coordination of care (as documented) at patient's floor/unit and/or counseling patient:
[2019-03-26] MEDS: DOCUSATE SODIUM/SENNA 50/8.6MG TAB PO SCH (21:27)
[2019-03-26] MEDS: POTASSIUM CHLORIDE 20 MEQ TABCR PO SCH (21:27)
[2019-03-26] MEDS: MONTELUKAST SODIUM 10 MG TABLET PO SCH (21:27)
[2019-03-27] MEDS: LEVOTHYROXINE SODIUM 50 MCG TABLET PO SCH (06:28)
[2019-03-27] MEDS: MoRPHine SULFATE 2 MG/ML CARP IV PRN ×2 (06:41→13:05)
[2019-03-27] MEDS: TRAMADOL HCL 50 MG TABLET PO PRN ×2 (07:58→20:03)
[2019-03-27 09:00] LABS: Hematocrit (blood only) 35.9 % (37-47); Hemoglobin 12.3 g/dL (12.0-16.0); Mean Corpuscular Hgb Conc 34.3 g/dL (32-36); Mean Corpuscular Volume 86.5 fL (80-100); Mean Platelet Volume 9.4 fL (7.4-10.4); Platelet Count 264 K/uL (130-400); RDW Standard Deviation 44.1 fL (36.4-46.3); Red Blood Count 4.15 M/uL (4.2-5.4); White Blood Count 7.64 K/uL (4.8-10.8)
[2019-03-27] MEDS: MULTIVITAMIN TAB PO SCH (09:02)
[2019-03-27] MEDS: POTASSIUM CHLORIDE 20 MEQ TABCR PO SCH ×2 (09:40→20:01)
[2019-03-27 09:41] LABS: BUN Creatinine Ratio 15.1 (10-20); Calcium 9.1 mg/dl (8.5-10.1); Creatinine Clr Calc Pharmacy 54.8 ml/min; Est GFR (African American) 95.3; Est GFR (Non-African American) 82.3; Magnesium 2.2 mg/dl (1.8-2.4); Potassium 3.7 mmol/L (3.5-5.1)
--- NOTE | 2019-03-27 13:15 | Orthopedic Progress Note ---
Date of Service March 27, 2019 Assessment & Plan (1) Spinal stenosis, lumbar region with neurogenic claudication: We are continue to promote physical therapy. I will have her assessed for possible rehab placement as soon as bed is available. Present on Admission?: Yes Subjective Patient complaining mostly of back pain. Leg pain improved. Physical Exam Physical Exam: On exam she does appear comfortable. She is good strength testing. Results & Data Vital Signs (Past 12 Hours) Vital Signs Temp Pulse Resp BP Pulse Ox 03/27/19 07:00 36.9 C 71 16 139/63 95
--- NOTE | 2019-03-27 16:01 | Hospitalist Progress Note ---
Date of Service March 27, 2019 Assessment & Plan (1) Spinal stenosis, lumbar region with neurogenic claudication: - S/p lumbar decompression and fusion on 03/22, POD#5. - Pain management and DVT ppx per primary team. - PT/OT evaluation -- plan for rehab at discharge. (2) Paroxysmal atrial fibrillation: - Had A. fib with RVR (120-130's) on 03/24 -- quickly converted to NSR but had intermittent bursts of A. fib following incident. - No documented episodes of A. fib over last 24 hours. - May have been related to electrolyte imbalances and operative blood loss. - Echo pending to evaluate for structural abnormalities. - No indication for rate controlling agent or anticoagulation; recommend outpatient Holter monitor. (3) Acute blood loss anemia: - Due to intra op surgical losses; received 2 units pRBCs with improvement. - Monitor H/H qAM. (4) Hypokalemia: - Improved to 3.7 on morning labs; will monitor qAM. - Continue KCl 20 mEq PO BID. (5) Hyponatremia: - Na level now improved to 133; will monitor daily. - No indication for further work up. (6) Asthma: - No acute exacerbation; continue home meds. (7) Hypothyroidism: - Continue Levothyroxine 50 mcg daily. - TSH was 4.46 -- will need follow up labs to determine if dose should be increased. (8) DVT prophylaxis: - Per ortho team. Dispo: Med/surg; discharge to rehab pending placement. Supervising Physician Co-Signing Physician Notes PA Supervision Note: I did not personally see or examine the patient today, but I verified all valenzuela points of YANET Pacheco's assessment and plan with the following exceptions/additions: None Subjective Pt. is doing well today with exception of back pain related to surgery. She is passing gas, has not had a BM yet. Denies chest pain, SOB, N/V, palpitations, lightheadedness. Review of Systems Review of Systems: All systems reviewed & are unremarkable except as noted in HPI & below Constitutional: no fever, no chills, no fatigue, no weakness and no anorexia Respiratory: no cough, no dyspnea and no dyspnea on exertion Cardiovascular: no chest pain, no palpitations and no edema Gastrointestinal: + constipation; no abdominal pain and no nausea Genitourinary: no difficulty urinating Musculoskeletal: + back pain; no joint pain Integumentary: no non-healing lesions Physical Exam Physical Exam: General: Resting comfortably HEENT: NC/AT; PERRLA with EOMI; [place] conjunctiva, MMM. No erythema of posterior pharynx Neck: Supple and nontender Cardiac: RRR Lungs: CTA bilaterally Abdomen: Bowel normoactive X 4; Nontender to palpation Extremities: Warm. No edema present Neuro: No focal weakness Skin: No rash; dressing in place over spinal incision site, no drainage noted. Results & Data Vital Signs (Past 12 Hours) Vital Signs Temp Pulse Resp BP Pulse Ox 03/27/19 15:37 36.9 C 72 17 146/64 H 98 03/27/19 07:00 36.9 C 71 16 139/63 95 Laboratory Results 03/27/19 03/27/19 Range/Units 08:33 08:33 WBC 7.64 (4.8-10.8) K/uL RBC 4.15 L (4.2-5.4) M/uL Hgb 12.3 (12.0-16.0) g/dL Hct 35.9 L (37-47) % MCV 86.5 (80-100) fL MCH 29.6 (25-34) pg MCHC 34.3 (32-36) g/dL RDW Std Deviation 44.1 (36.4-46.3) fL RDW Coeff of Wandy 14.0 (11.5-14.5) % Plt Count 264 (130-400) K/uL MPV 9.4 (7.4-10.4) fL Sodium 133 L (136-145) mmol/L Potassium 3.7 D (3.5-5.1) mmol/L Chloride 95 L (98-107) mmol/L Carbon Dioxide 31 (21-32) mmol/L Anion Gap 7.0 (3-11) BUN 10 (7-18) mg/dl Creatinine 0.66 (0.6-1.2) mg/dl Est Cr Clr Drug Dosing 54.8 ml/min Est GFR ( Amer) 95.3 Est GFR (Non-Af Amer) 82.3 BUN/Creatinine Ratio 15.1 (10-20) Glucose 105 H (70-99) mg/dl Calcium 9.1 (8.5-10.1) mg/dl Magnesium 2.2 (1.8-2.4) mg/dl PG Care Time/CCT Total # of Minutes Spent Total Time Spent with Patient: Total time spent is greater than 50% in coordination of care (as documented) at patient's floor/unit and/or counseling patient:
[2019-03-27] MEDS: MONTELUKAST SODIUM 10 MG TABLET PO SCH (20:01)
[2019-03-27] MEDS: DOCUSATE SODIUM/SENNA 50/8.6MG TAB PO SCH (20:03)
[2019-03-27] MEDS: LORazepam 0.5 MG TAB PO PRN (21:51)
[2019-03-28] MEDS: TRAMADOL HCL 50 MG TABLET PO PRN ×4 (02:25→20:47)
[2019-03-28] MEDS: LEVOTHYROXINE SODIUM 50 MCG TABLET PO SCH (05:28)
[2019-03-28] MEDS: ACETAMINOPHEN 500 MG TAB PO PRN ×2 (05:37→18:14)
[2019-03-28 06:45] LABS: Hematocrit (blood only) 32.9 % (37-47); Hemoglobin 11.4 g/dL (12.0-16.0); Mean Corpuscular Hgb Conc 34.7 g/dL (32-36); Mean Corpuscular Volume 87.3 fL (80-100); Platelet Count 236 K/uL (130-400); RDW Coefficient of Variation 14.3 % (11.5-14.5); RDW Standard Deviation 45.2 fL (36.4-46.3); Red Blood Count 3.77 M/uL (4.2-5.4)
[2019-03-28 07:11] LABS: BUN Creatinine Ratio 14.3 (10-20); Creatinine Clr Calc Pharmacy 64.6 ml/min; Est GFR (African American) 100.6; Est GFR (Non-African American) 86.8
[2019-03-28] MEDS: MULTIVITAMIN TAB PO SCH (08:39)
[2019-03-28] MEDS: POTASSIUM CHLORIDE 20 MEQ TABCR PO SCH (08:40)
--- NOTE | 2019-03-28 13:20 | Hospitalist Progress Note ---
Date of Service March 28, 2019 Assessment & Plan (1) Spinal stenosis, lumbar region with neurogenic claudication: - S/p lumbar decompression and fusion on 03/22, POD#6. - Pain management and DVT ppx per primary team. - PT/OT evaluation -- discharge to [facility]. (2) Paroxysmal atrial fibrillation: - Had A. fib with RVR (120-130's) on 03/24 -- quickly converted to NSR but had intermittent bursts of A. fib following incident. - No documented episodes of A. fib over last 48 hours. - May have been related to electrolyte imbalances and operative blood loss. - Echo showed preserved EF, no structural abnormalities, but with hypokinetic base to mid inferior wall . - No indication for rate controlling agent or anticoagulation; will need outpatient Holter monitor. -Would recommend Cardiology follow up after discharge for wall motion abnormality seen on ECHO here and post-op lone Afib (3) Acute blood loss anemia: - Due to intra op surgical losses; received 2 units pRBCs with improvement. - H/H remained stable post op. (4) Hypokalemia: - Improved; monitored qAM. - Continue KCl 20 mEq PO BID. (5) Hyponatremia: - Na level now improved. - No indication for further work up. (6) Asthma: - No acute exacerbation; continue home meds. (7) Hypothyroidism: - Continue Levothyroxine 50 mcg daily. - TSH was 4.46 -- will need follow up labs to determine if dose should be i ncreased. (8) DVT prophylaxis: - Per ortho team. Dispo: Med/surg; pt. is medically stable, will sign off. Please call with any questions. Supervising Physician Co-Signing Physician Notes YANET Supervision Note: I did not personally see or examine the patient today, but I verified all valenzuela points of YANET Pacheco's assessment and plan with the following exceptions/additions: None Subjective Pt. is doing well today with exception of back pain related to procedure. Pain is rated as a 3.5/10. Is passing gas, no BM yet. Denies chest pain, SOB. Review of Systems Review of Systems: All systems reviewed & are unremarkable except as noted in HPI & below Constitutional: no fever, no chills, no fatigue and no weakness Respiratory: no cough, no dyspnea and no dyspnea on exertion Cardiovascular: no chest pain, no palpitations and no edema Gastrointestinal: + constipation; no abdominal pain and no nausea Genitourinary: no difficulty urinating Musculoskeletal: + back pain; no joint pain Integumentary: no non-healing lesions Physical Exam Physical Exam: General: Resting comfortably HEENT: NC/AT; PERRLA with EOMI; [place] conjunctiva, MMM. No erythema of posterior pharynx Neck: Supple and nontender Cardiac: RRR Lungs: CTA bilaterally Abdomen: Bowel normoactive X 4; Nontender to palpation Extremities: Warm. No edema present Neuro: No focal weakness Skin: No rash; dressing in place, no drainage noted. Results & Data Vital Signs (Past 12 Hours) Vital Signs Temp Pulse Resp BP Pulse Ox 03/28/19 07:12 36.4 C L 66 16 147/78 H 96 Laboratory Results 03/28/19 03/28/19 Range/Units 06:30 06:30 WBC 6.60 (4.8-10.8) K/uL RBC 3.77 L (4.2-5.4) M/uL Hgb 11.4 L (12.0-16.0) g/dL Hct 32.9 L (37-47) % MCV 87.3 (80-100) fL MCH 30.2 (25-34) pg MCHC 34.7 (32-36) g/dL RDW Std Deviation 45.2 (36.4-46.3) fL RDW Coeff of Wandy 14.3 (11.5-14.5) % Plt Count 236 (130-400) K/uL MPV 9.0 (7.4-10.4) fL Sodium 134 L (136-145) mmol/L Potassium 4.0 (3.5-5.1) mmol/L Chloride 98 (98-107) mmol/L Carbon Dioxide 29 (21-32) mmol/L Anion Gap 7.0 (3-11) BUN 8 (7-18) mg/dl Creatinine 0.56 L (0.6-1.2) mg/dl Est Cr Clr Drug Dosing 64.6 ml/min Est GFR ( Amer) 100.6 Est GFR (Non-Af Amer) 86.8 BUN/Creatinine Ratio 14.3 (10-20) Glucose 102 H (70-99) mg/dl Calcium 9.0 (8.5-10.1) mg/dl Magnesium 2.0 (1.8-2.4) mg/dl PG Care Time/CCT Total # of Minutes Spent Total Time Spent with Patient: Total time spent is greater than 50% in coordination of care (as documented) at patient's floor/unit and/or counseling patient:
--- NOTE | 2019-03-28 17:26 | Orthopedic Progress Note ---
Date of Service March 28, 2019 Assessment & Plan (1) Spinal stenosis, lumbar region with neurogenic claudication: This time [facility] was denied [facility]. [facility] looking for a [facility]. Hopefully she will discharge tomorrow. Present on Admission?: Yes Subjective Patient is improving daily. She is ambulating in the halls with walker. Physical Exam Physical Exam: Patient is good strength testing is sitting in the chair at the bedside. Results & Data Vital Signs (Past 12 Hours) Vital Signs Temp Pulse Resp BP Pulse Ox 03/28/19 16:04 36.7 C 72 16 140/70 97 03/28/19 07:12 36.4 C L 66 16 147/78 H 96
[2019-03-28] MEDS: MONTELUKAST SODIUM 10 MG TABLET PO SCH (20:47)
[2019-03-28] MEDS: DOCUSATE SODIUM/SENNA 50/8.6MG TAB PO SCH (20:56)
[2019-03-29] MEDS: LORazepam 0.5 MG TAB PO PRN (02:12)
[2019-03-29] MEDS: TRAMADOL HCL 50 MG TABLET PO PRN ×2 (05:43→11:02)
[2019-03-29] MEDS: LEVOTHYROXINE SODIUM 50 MCG TABLET PO SCH (05:43)
[2019-03-29] MEDS: MULTIVITAMIN TAB PO SCH (07:28)
[2019-03-29] MEDS: ACETAMINOPHEN 500 MG TAB PO PRN (07:33)
--- NOTE | 2019-03-29 14:36 | Discharge Summary ---
Date of Service March 29, 2019 Admission HPI Per Admitting Provider This is an 84-year-old female who presents with chronic persistent back and leg pain. After failing extensive course of nonoperative care is here for surgical intervention. Principal Diagnosis Spinal stenosis with neurogenic claudication Discharge Data Allergies Allergy/AdvReac Type Severity Reaction Status Date / Time No Known Allergies Allergy Verified 03/22/19 06:09 Consultations 03/22/19 12:02 Consult Case Management - Discharge Planning Routine Consult Hospitalist Routine Procedures Performed Operation Date: 03/22/19 07:45 Actual Procedures p L2-L5 Decompression and Fusion with Spinal Cord Monitoring, Application of OssiMend, and Bone Morphogenetic Protein.(Not Applicable) - Bryan Ann DO Ordered Studies 03/22/19 07:45 FL fluoroscopy <1hr Routine FL lumbar spine 2-3V Routine 03/24/19 10:09 CT abd pelvis IV con only Routine Hospital Course (1) Spinal stenosis, lumbar region with neurogenic claudication: Patient underwent multilevel lumbar decompression fusion tolerated this well was taken to orthopedic for postoperative. She did undergo bedrest for 24 hours and then initiated physical therapy. She progressed quite slowly but steadily. JOCELYNE drain decreased appropriately. She was subsequently discharged to senior living facility. Discharge orders and instructions can be found chart for further review. Total Time Total Time Spent Total Time Spent (In Minutes): 30 minutes Discharge Plan Discharge Items Patient Disposition: Transfer [facility] Reason For Visit: Spinal Stenosis, Lumbar Region with Neurogenic Cla Discharge Diagnosis: lumbar stenosis Discharge Goals: Decrease discomfort Activity: Per 'Additional Instructions' section Non-emergency contact: Primary Care Provider Call non-emergency contact if: you have any medication questions Follow-up/Referrals: Jeffrey Pimentel MD [Primary Care Provider] - Diet: Regular Addtl Provider Instructions: ACTIVITY RECOMMENDATIONS: SELF CARE INSTRUCTIONS AFTER THORACIC/LUMBAR FUSIONS 1. You may walk to your tolerance. It is good exercise for your legs and back. Expect some back and intermittent leg aches and pains. 2. You may perform "counter-top" level activities (make a sandwich, lance with a project, etc.). 3. No bending or lifting of more than 10 pounds or back twisting of any nature (roll like a log when turning in bed). 4. You may ride in a car for 20-30 minutes at a time. No driving until after your first visit with your doctor. 5. Frequent changes of position and restricting sitting to 30 minutes at a time will help limit the amount of back spasms and stiffness you may experience. 6. You may discontinue the use of ambulatory aids (cane, crutches, etc.) once your strength and confidence allow. 7. 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 Do not take a tub bath, sit in a hot tub or go into a swimming pool until after your first recheck in the office. SPECIAL CARE INSTRUCTIONS: VERY IMPORTANT TO READ AND REVIEW A. Your surgical incision has been closed with a cosmetic suture under the skin that will dissolve in about 6 weeks. In 14 days, you can use a pair of clean scissors and cut the suture that is left outside of the skin at the ends of your incision. 1. The small skin tapes can be removed 7 days after surgery if they have not fallen off by that point. 2. You may keep the wound open to air as much as possible to promote healing after post-op day number 5 unless told otherwise by your doctor. 3. If you think the wound looks like it is becoming infected (redness or worsening drainage) and/or you are experiencing fever, chill or worsening back pain and muscle spasms, contact the office so that we may evaluate you as soon as possible. B. Complications are uncommon, but please contact us if you have any signs or symptoms of: 1. wound infection (fever higher than 102.5 degrees F, redness, separation of wound, drainage, or increasing pain from the incision) 2. blood clots in legs (pain, swelling, redness and warmth in legs) 3. urinary tract infection (fever higher than 102.5 degrees F, burning upon urination or increased frequency of urination) 4. nerve problems (inability to walk on your toes or heels, numbness, loss of bowel or bladder control) 5. any other symptoms that concern you C. Please call the office at if you have any concerns or questions about your operation or recovery. D. No smoking! Smoking drastically decreases the chance of a solid fusion. E. Do not take any anti-inflammatory medications (Indocin, Advil, Motrin, Aspirin, Naprosyn, etc.) as these may inhibit the chance of a solid fusion. Tylenol is okay to take for pain. MANAGING PAIN AFTER SPINAL SURGERY 1. Narcotic medication is intended for short-term use and will be provided for surgical pain. Surgical pain usually lasts for a period of 4-6 weeks. Narcotic medication includes Percocet, Vicodin, Darvocet, Tylenol #3 or Lortab. 2. Longer-term pain is more appropriately treated with non-narcotic medication such as Tylenol ES. 3. Muscle spasm is not appropriately treated with narcotics. Muscle relaxers such as Soma, Flexeril or Skelaxin can be used along with Tylenol ES. 4. Remember that we all live with some "aches and pains". This is not unusual or uncommon after an injury or as we get older. a. Back pain is expected and may include muscle spasms for 4 to 6 weeks after surgery. The pain should gradually improve. If the pain worsens for no apparent reason, please contact the office. b. Intermittent leg pain may also be experienced and should not be concerned about unless it worsens for no apparent reason. If so, please contact the office. 5. We will provide appropriate medication within the normal guidelines of their prescribed use. We will also be very cautious and aware of potential abuse and extended duration of patients' medication needs. a. Pain medications are for your comfort and to assist with sleep and rest so that the tissue can heal. They are not provided in order to return to normal activity and should not be used through the day. To do so or worsening pain at night can result from ongoing tissue damage and development of tolerance to the prescribed medicine. 6. Please allow 2-3 days to process refills. Prescriptions will not be mailed but must be picked up at the office. FOLLOW UP VISIT: Keep your scheduled follow-up appointment. Any questions, please call the office at . Prescriptions: New tramadol 50 mg Tablet 50 mg PO Q4H PRN (Reason: Pain) Qty: 30 RF: 0 Continued meloxicam 15 mg tablet 15 mg PO QPM RF: 0 fexofenadine [Consuelo Allergy] 180 mg Tablet 180 mg PO DAILY PRN (Reason: ALLERGY RELIEF) RF: 0 calcium carbonate [Calcium 500] 500 mg calcium (1,250 mg) Tablet 500 mg PO 3XWK RF: 0 levothyroxine 50 mcg Tablet 50 mcg PO QAM RF: 0 Dulera 200-5 mcg/actuation Hfa Aerosol Inhaler 2 puff INHALATION BID PRN (Reason: Shortness Of Breath) RF: 0 lorazepam 0.5 mg Tablet 0.5 mg PO BID PRN (Reason: Anxiety) RF: 0 montelukast 10 mg Tablet 10 mg PO QPM RF: 0 multivitamin Tablet 1 tab PO DAILY RF: 0 levalbuterol HCl [Xopenex] 0.63 mg/3 mL Solution For Nebulization 0.63 mg INHALATION TID PRN (Reason: Shortness Of Breath) RF: 0 albuterol sulfate [ProAir HFA] 90 mcg/actuation Hfa Aerosol Inhaler 2 puff INHALATION Q6H PRN (Reason: Shortness Of Breath) RF: 0 Stand-Alone Forms: [facility] [place], [facility] [place]/Other Patient Handouts: Safety Back Into and Out Bed Discharge Orders: Discharge Order (Routine); Ordered 03/29/19 Ordered By: Bryan Ann Skilled Items Patient informed of condition?: Yes DNR: No Discharge Level of Care: Skilled Communicable Disease: No Discharge Prognosis: Improving Admission Data Admit Date/Time: 03/22/19 10:39 Attending Provider: Bryan Ann Admit Provider: Bryan Ann Primary Care Provider: Jeffrey Pimentel Other Providers: May Lilly Service: Surgical Services Other Interventions: Discharge Summary Assessment (RN) Last Done: 03/29/19 10:25 DC Date/Time DO NOT enter until pt leaves facility: 03/29/19 11:23
== END 2019-03-29 11:23 | DRG 460 ==
LOC: ASU 05:56 → 3E 10:39 → 2N 03-24 11:53 → 3E 03-26 11:28

== ENCOUNTER 2020-01-27 21:03 | Inpatient (IN) ==
[2020-01-27] MEDS ORDERED: ACETAMINOPHEN 1000 MG/100 ML IV IV STA (21:42)
[2020-01-27] MEDS ORDERED: SODIUM CHLORIDE 0.9% 1000ML 500 ML IV ONE (21:42)
--- NOTE | 2020-01-27 21:51 | Emergency Department Note ---
History of Present Illness General Chief complaint: Urinary Symptoms Stated complaint: SYNCOPE, BACK PAIN, UTI History of Present Illness Maximum Pain Intensity: 5 This 84-year-old presents to the ER complaining of urinary symptoms, flank pain, body aches, lightheadedness and achiness Location: Generalized Quality: Aching Severity: Moderate Duration: Past day Timing: Started yesterday Context: Patient was concerned and came in Modifying factors: better with rest; worse with activity Patient got up in the middle the night to go the bathroom got lightheaded and briefly passed out. Patient has a history of bladder cancer and follows with Dr. Cheng's office. No current treatment. Patient denies chest pain, dyspnea, fevers, flulike illness. She chronically has back pain but is worse today. Home Medications Home Medications Medication Instructions Recorded Confirmed Type fexofenadine [Consuelo Allergy] 180 mg PO DAILY PRN 04/11/18 01/27/20 History multivitamin 1 tab PO DAILY 04/11/18 01/27/20 History levothyroxine 50 mcg tablet 50 mcg PO QAM #90 tab 05/03/19 01/27/20 Rx mometasone-formoterol HFA 200 2 puff INHALATION BID #13 gm 07/31/19 01/27/20 Rx mcg-5 mcg/actuation aerosol inhaler montelukast 10 mg tablet 10 mg PO QPM #30 tab 08/11/19 01/27/20 Rx tolterodine 4 mg capsule,extended 4 mg PO DAILY #90 cap 08/22/19 01/27/20 Rx release 24 hr carboxymethylcellulose sodium 1 drops OPB TID 10/02/19 01/27/20 History [Refresh Celluvisc] lorazepam 0.5 mg tablet 0.5 mg PO BID PRN #30 tab 01/24/20 01/27/20 Rx calcium carbonate-vitamin D3 1 tab PO DAILY 01/27/20 01/27/20 History [Caltrate with Vitamin D3] cholecalciferol (vitamin D3) 0 mcg PO DAILY 01/27/20 01/27/20 History [Vitamin D3] diclofenac sodium 4 g TOPICAL DIRECTED PRN 01/27/20 01/27/20 History levalbuterol tartrate [Xopenex HFA] 1 puff INHALATION Q6H PRN 01/27/20 01/27/20 History Allergies Allergy/AdvReac Type Severity Reaction Status Date / Time No Known Allergies Allergy Verified 01/27/20 23:00 Past Med/Surg History Medical History Acute blood loss anemia (Inactive) Asthma stable Asthma (Chronic) Borderline hyperlipidemia Borderline hypertension (Chronic) anxiety related Chronic obstructive pulmonary disease + emphysema; stable GERD (gastroesophageal reflux disease) controlled Hx of bladder cancer s/p partial resection; under surveillance Hx of cancer of uterus s/p hysterectomy Hx of migraines HX: breast cancer s/p right breast mastectomy Hypothyroidism (Chronic) Hypothyroidism Macular degeneration of both eyes Moderate persistent asthma (Chronic) Osteoarthritis Paroxysmal atrial fibrillation (Chronic) Postoperative anemia due to acute blood loss (Resolved) Postoperative atrial fibrillation (Resolved) Spinal stenosis Surgical History History of appendectomy History of bladder surgery PARTIAL RESECTION History of section History of colonoscopy History of mastectomy RT BREAST History of tonsillectomy History of tooth extraction History of total abdominal hysterectomy and bilateral salpingo-oophorectomy Hx of cataract surgery LEFT Hx of decompressive lumbar laminectomy (Resolved) Family History Sister Breast cancer Irritable bowel syndrome Brother Alzheimer disease Brain cancer Father COPD (chronic obstructive pulmonary disease) Mother Heart disease Denies family history of Ovarian cancer Prostate cancer Myocardial infarction Colorectal cancer Social History Preferred Language: Hungarian Communication Ability: Effective Visual Impairment: No Limitations Hearing Ability: Use of Hearing Aid 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 Required: No Beliefs That Will Affect Care: None marital status: Current Living Situation: Spouse current occupational status: retired Feels Safe at Home: Yes Smoking Status: Never smoker Second Hand Exposure: No ; Hx Alcohol Use: Yes Alcohol type: wine Alcohol Intake Frequency: Holidays/Special Occasions Hx Substance Use: No Childhood Exposure to Second-Hand Smoke: No caffeine: Yes Dental Care, Regularly: Yes Physical Activity Frequency: Daily Seatbelt Use: always Sunscreen Use: Yes Review of Systems A total of 10 systems reviewed and were otherwise negative Physical Exam Vital Signs Vital Signs - 24 hr 01/27/20 21:11 01/27/20 21:24 01/27/20 21:30 Temperature 36.5 C Temperature Source Oral Pulse Rate 72 96 H Pulse Rhythm Regular Pulse Strength Normal Respiratory Rate 16 23 Respiratory Effort / Characteristics Non-Labored Respiratory Depth Normal Respiratory Pattern Regular Blood Pressure 98/62 L 117/55 L Blood Pressure Mean 74 61 Blood Pressure Position Sitting Pulse Oximetry 99 97 Oxygen Delivery Method Room Air Room Air Sepsis Recent Fever Within 48 Hours No Sepsis Action Taken by Nursing No Action Required 01/27/20 22:57 01/28/20 00:01 01/28/20 00:37 Temperature Temperature Source Pulse Rate 74 70 70 Pulse Rhythm Pulse Strength Respiratory Rate 21 20 19 Respiratory Effort / Characteristics Respiratory Depth Respiratory Pattern Blood Pressure 106/58 L 125/48 L 123/62 Blood Pressure Mean 82 66 84 Blood Pressure Position Pulse Oximetry 99 99 98 Oxygen Delivery Method Sepsis Recent Fever Within 48 Hours Sepsis Action Taken by Nursing VITALS: Vitals are noted on the nurse's note and reviewed by myself. Vital signs mildly tachycardic. GENERAL: Pleasant elderly female, in no acute distress, nondiaphoretic, well- developed well-nourished. SKIN: The skin was without rashes, erythema, edema, or bruising. There is no tenting of the skin. Capillary reflex less than 2 seconds. HEAD: Normocephalic atraumatic. EARS: External auditory canals clear, tympanic membranes pearly humphrey without erythema or effusion bilaterally. EYES: Pupils equal round and reactive to light and accommodation. Conjunctivae without injection, sclerae without icterus. Extraocular movements intact. NOSE: Patent, turbinates without inflammation or discharge. No sinus tenderness. MOUTH: Mucous membranes mildly dry. Pharynx without erythema or exudate. Uvula midline. Airway patent. Tongue does not deviate. NECK: Supple without nuchal rigidity. No lymphadenopathy. No thyromegaly. Cervical spine is nontender. No JVD. HEART: Regular rate and rhythm LUNGS: Clear to auscultation bilaterally without wheezes, rales or rhonchi. No retractions or accessory muscle use. ABDOMEN: Positive bowel sounds x 4. Normal tympanic percussion. Soft, tender to palpation lower abdomen, without masses or organomegaly. Padilla sign negative. No guarding or rebound tenderness. Bilateral o CVA tenderness MUSCULOSKELETAL: No muscle atrophy, erythema, or edema noted. NEURO: Patient was alert and oriented to person place and time. Normal sensation to light and sharp touch. No focal neurological deficits. Course Administered Medications Ioversol (Optiray 320 100ml) 93 ml IV ONCE PRN PRN Reason: Interaction Checking Stop: 01/31/20 22:36 Last Admin: 01/27/20 22:37 Dose: 93 ml Documented by: [id number] Discontinued Medications Acetaminophen (Ofirmev) 1,000 mg IV NOW STA Stop: 01/27/20 21:43 Last Admin: 01/27/20 22:12 Dose: 1,000 mg Documented by: [id number] Sodium Chloride (Nss 1000ml) 500 mls @ 999 mls/hr IV .Q31M ONE Stop: 01/27/20 22:12 Last Infusion: 01/27/20 22:43 Dose: 0 mls/hr Documented by: [id number] Admin: 01/27/20 22:12 Dose: 999 mls/hr Documented by: [id number] Piperacillin Sod/Tazobactam Sod (Zosyn) 4.5 gm in 120 mls @ 240 mls/hr IV NOW ONE Stop: 01/27/20 23:01 Last Infusion: 01/27/20 23:33 Dose: 0 mls/hr Documented by: [id number] Admin: 01/27/20 23:03 Dose: 240 mls/hr Documented by: [id number] Medical Decision Making Medical Records Attestation: I reviewed the patient's medical records. Home Medications Current Medication List: was personally reviewed by me Laboratory Data Attestation: I reviewed the patient's lab results. Result diagrams: 01/27/20 22:01 01/27/20 22:01 Lab Results 01/27/20 01/27/20 01/27/20 Range/Units 22:01 22:01 22:01 WBC 22.48 H (4.8-10.8) K/uL RBC 4.36 (4.2-5.4) M/uL Hgb 13.0 (12.0-16.0) g/dL Hct 39.3 (37-47) % MCV 90.1 (80-100) fL MCH 29.8 (25-34) pg MCHC 33.1 (32-36) g/dL RDW Std Deviation 49.6 H (36.4-46.3) fL RDW Coeff of [place] 15.1 H (11.5-14.5) % Plt Count 217 (130-400) K/uL MPV 10.6 H (7.4-10.4) fL Immature Gran % (Auto) 0.4 % Neut % (Auto) 87.9 % Lymph % (Auto) 5.6 % [place] % (Auto) 6.0 % Eos % (Auto) 0.0 % Baso % (Auto) 0.1 % Neut # (Auto) 19.74 H (1.4-6.5) K/uL Lymph # (Auto) 1.27 (1.2-3.4) K/uL [place] # (Auto) 1.35 H (0.11-0.59) K/uL Eos # (Auto) 0.00 (0-0.5) K/uL Baso # (Auto) 0.02 (0-0.2) K/uL Immature Gran # (Auto) 0.10 H (0.00-0.02) K/uL PT 11.6 (9.0-12.0) Seconds INR 1.1 (0.9-1.1) APTT 29.2 (21.0-31.0) Seconds PTT Ratio 1.0 Sodium 136 (136-145) mmol/L Potassium 3.9 (3.5-5.1) mmol/L Chloride 103 (98-107) mmol/L Carbon Dioxide 28 (21-32) mmol/L Anion Gap 5.0 (3-11) BUN 23 H (7-18) mg/dl Creatinine 1.24 H (0.6-1.2) mg/dl Est Cr Clr Drug Dosing 27.0 ml/min Est GFR ( Amer) 46.8 Est GFR (Non-Af Amer) 40.4 BUN/Creatinine Ratio 18.5 (10-20) Glucose 115 H (70-99) mg/dl Lactate (0.4-2.0) mmol/L Calcium 9.2 (8.5-10.1) mg/dl Magnesium 2.0 (1.8-2.4) mg/dl Total Bilirubin 1.0 (0.2-1) mg/dl AST 20 (15-37) U/L ALT 28 (12-78) U/L Alkaline Phosphatase 105 (45-117) U/L Troponin I < 0.015 (0-0.045) ng/ml Total Protein 7.1 (6.4-8.2) gm/dl Albumin 3.3 L (3.4-5.0) gm/dl Globulin 3.8 (2.5-4.0) gm/dl Albumin/Globulin Ratio 0.9 (0.9-2) Urine Color Urine Appearance (Clear) Urine pH (4.5-7.5) Ur Specific [place] (1.000-1.030) Urine Protein (Negative) Urine Glucose (UA) (Negative) Urine Ketones (Negative) Urine Blood (Negative) Urine Nitrite (Negative) Urine Bilirubin (Negative) Urine Urobilinogen (Negative) Ur Leukocyte Esterase (Negative) Urine WBC (Auto) (0-5) /hpf Urine RBC (Auto) (0-4) /hpf U Hyaline Cast (Auto) (0-5) /lpf U Epithel Cells (Auto) (0-5) /lpf Urine Bacteria (Auto) (Negative) Urine Yeast 01/27/20 01/27/20 Range/Units 22:19 22:52 WBC (4.8-10.8) K/uL RBC (4.2-5.4) M/uL Hgb (12.0-16.0) g/dL Hct (37-47) % MCV (80-100) fL MCH (25-34) pg MCHC (32-36) g/dL RDW Std Deviation (36.4-46.3) fL RDW Coeff of [place] (11.5-14.5) % Plt Count (130-400) K/uL MPV (7.4-10.4) fL Immature Gran % (Auto) % Neut % (Auto) % Lymph % (Auto) % [place] % (Auto) % Eos % (Auto) % Baso % (Auto) % Neut # (Auto) (1.4-6.5) K/uL Lymph # (Auto) (1.2-3.4) K/uL [place] # (Auto) (0.11-0.59) K/uL Eos # (Auto) (0-0.5) K/uL Baso # (Auto) (0-0.2) K/uL Immature Gran # (Auto) (0.00-0.02) K/uL PT (9.0-12.0) Seconds INR (0.9-1.1) APTT (21.0-31.0) Seconds PTT Ratio Sodium (136-145) mmol/L Potassium (3.5-5.1) mmol/L Chloride (98-107) mmol/L Carbon Dioxide (21-32) mmol/L Anion Gap (3-11) BUN (7-18) mg/dl Creatinine (0.6-1.2) mg/dl Est Cr Clr Drug Dosing ml/min Est GFR ( Amer) Est GFR (Non-Af Amer) BUN/Creatinine Ratio (10-20) Glucose (70-99) mg/dl Lactate 1.4 (0.4-2.0) mmol/L Calcium (8.5-10.1) mg/dl Magnesium (1.8-2.4) mg/dl Total Bilirubin (0.2-1) mg/dl AST (15-37) U/L ALT (12-78) U/L Alkaline Phosphatase (45-117) U/L Troponin I (0-0.045) ng/ml Total Protein (6.4-8.2) gm/dl Albumin (3.4-5.0) gm/dl Globulin (2.5-4.0) gm/dl Albumin/Globulin Ratio (0.9-2) Urine Color Yellow Urine Appearance Turbid A (Clear) Urine pH 5.5 (4.5-7.5) Ur Specific [place] 1.031 H (1.000-1.030) Urine Protein 2+ H (Negative) Urine Glucose (UA) Negative (Negative) Urine Ketones Negative (Negative) Urine Blood 3+ H (Negative) Urine Nitrite Positive A (Negative) Urine Bilirubin Negative (Negative) Urine Urobilinogen Negative (Negative) Ur Leukocyte Esterase 3+ H (Negative) Urine WBC (Auto) >30 H (0-5) /hpf Urine RBC (Auto) 10-30 H (0-4) /hpf U Hyaline Cast (Auto) 5-10 H (0-5) /lpf U Epithel Cells (Auto) 20-30 H (0-5) /lpf Urine Bacteria (Auto) 2+ H (Negative) Urine Yeast Not Reportable Imaging Data Attestation: I personally reviewed and interpreted this imaging study as follows: Blood Pressure Blood Pressure Findings: Normal blood pressure MDM Narrative Prior records/ancillary studies reviewed and summarized above. Nursing notes reviewed. Additional history obtained from family. The patient's history was concerning for urinary symptoms, flank pain, achiness and not feeling well Differential diagnosis: Etiologies such as metabolic, infection, hypo/hyperglycemia, electrolyte abnormalities, cardiac sources, intracerebral event, toxicologic, neurologic, as well as others were entertained. Physical examination: As above. ER treatment provided: IV Lock An order was placed for continuous cardiac monitoring. The monitor shows a rate of 60-100 with a normal sinus rhythm. IV fluids, Tylenol On reassessment the patient felt better. Diagnostics interpretation by me: ECG: Normal sinus, normal intervals, no acute ST-T wave changes. Impression normal sinus rhythm interpreted by myself EKG ordered for weakness and syncope I think arrhythmia is unlikely. EKG shows normal sinus rhythm with no interval abnormalities such as QT prolongation or WPW. There are no findings to suggest Brugada syndrome. Cardiac monitoring in the emergency department reveals no tachycardic or bradycardic dysrhythmia. Hypertrophic cardiomyopathy was considered but there are no clear historical elements pointing toward this. EKG is not suggestive. The QRS voltage is not extremely large and there are no suggestive Q waves. The labs revealed leukocytosis, negative lactic acid Blood cultures pending Imaging studies: CT ABDOMEN & PELVIS With Contrast: Thickening of the bladder suggesting cystitis. Enhancement of the urothelium involving the renal collecting systems and ureters suggesting infectious/inflammatory process. Nonobstructing right renal stone. Gallbladder distention. No radiodense gallstones. No evidence of colitis or bowel obstruction. Appendix not identified. Small hiatal hernia. Hysterectomy. Surgical changes with hardware in the spine. Right mastectomy Radiologist: Neo Smith M.D. CT HEAD: No acute intracranial process. Involutional changes with small vessel disease. Cataract surgery. Radiologist: Neo Smith M.D. Consultation: A consultation was placed with the hospitalist, Dr Knox. The case was discussed and diagnostics were reviewed. The patient was evaluated in the ER for further treatment. Exam and history seem consistent with syncope with pyelonephritis. Patient started antibiotics. Urine culture was sent. Blood cultures were sent. Lactic is negative. Patient had a moderate leukocytosis. Patient and family agreeable treatment plan of admission. By the evaluation outlined above emergent etiologies such as electrolyte abnormalities, cardiac sources, intracerebral event, toxologic, neurologic, abnormalities blood glucose, metabolic, as well as others were deemed relatively unlikely. The pt informed about the findings as listed above. All questions were answered and pleased with the treatment. The chart was completed utilizing [employer] Speech voice recognition software. Grammatical errors, random word insertions, pronoun errors, and incomplete sentences are an occassional consequence of this system due to software limitations, ambient noise, and hardware issues. Any formal questions or concerns about the content, text, or information contained within the body of this dictation should be directly addressed to the physician research program assistant for clarification. Impression & Plan Urinary tract infection, Syncope, Back pain Discharge Plan Visit Data Chief Complaint: Urinary Symptoms Stated Complaint: SYNCOPE, BACK PAIN, UTI ED Provider: Yovani Gamble ED Midlevel Provider: Cristine Chapman Discharge Problem: Urinary tract infection, Syncope, Back pain Patient Disposition: Being Evaluated by Hospitalist Condition: Fair Forms Stand Alone Forms: Face-Me Prescriptions Prescriptions: No Action levothyroxine 50 mcg tablet 50 mcg PO QAM Qty: 90 RF: 3 montelukast 10 mg tablet 10 mg PO QPM Qty: 30 RF: 11 tolterodine 4 mg capsule,extended release 24hr 4 mg PO DAILY Qty: 90 RF: 3 Dulera 200-5 mcg/actuation HFA aerosol inhaler 2 puff INHALATION BID Qty: 13 RF: 11 lorazepam 0.5 mg tablet 0.5 mg PO BID PRN (Reason: Anxiety) Qty: 30 RF: 0 fexofenadine [Consuelo Allergy] 180 mg Tablet 180 mg PO DAILY PRN (Reason: ALLERGY RELIEF) RF: 0 multivitamin Tablet 1 tab PO DAILY RF: 0 Refresh Celluvisc 1 % dropperette,gel 1 drops OPB TID RF: 0 cholecalciferol (vitamin D3) [Vitamin D3] 25 mcg (1,000 unit) Tablet 0 mcg PO DAILY RF: 0 diclofenac sodium 1 % gel 4 g TOPICAL DIRECTED PRN (Reason: Pain) RF: 0 calcium carbonate-vitamin D3 [Caltrate with Vitamin D3] 600 mg(1,500mg) -800 unit Tablet 1 tab PO DAILY RF: 0 levalbuterol tartrate [Xopenex HFA] 45 mcg/actuation Hfa Aerosol Inhaler 1 puff INHALATION Q6H PRN (Reason: Shortness Of Breath Or Wheezing) RF: 0 Referrals Referrals: Jeffrey Pimentel MD [Primary Care Provider] -
[2020-01-27 22:10] LABS: Basophils # (auto) 0.02 K/uL (0-0.2); Basophils % (auto) 0.1 %; Hematocrit (blood only) 39.3 % (37-47); Immature Granulocytes % (auto) 0.4 %; Lymphocytes # (auto) 1.27 K/uL (1.2-3.4); Lymphocytes % (auto) 5.6 %; Mean Corpuscular Hemoglobin 29.8 pg (25-34); Mean Corpuscular Hgb Conc 33.1 g/dL (32-36); Mean Corpuscular Volume 90.1 fL (80-100); Mean Platelet Volume 10.6 fL (7.4-10.4); Monocytes # (auto) 1.35 K/uL (0.11-0.59); Neutrophils # (auto) 19.74 K/uL (1.4-6.5); Neutrophils % (auto) 87.9 %; Platelet Count 217 K/uL (130-400); RDW Coefficient of Variation 15.1 % (11.5-14.5); RDW Standard Deviation 49.6 fL (36.4-46.3); Red Blood Count 4.36 M/uL (4.2-5.4); White Blood Count 22.48 K/uL (4.8-10.8)
[2020-01-27 22:20] LABS: INR 1.1 (0.9-1.1); Partial Thromboplastin Time 29.2 Seconds (21.0-31.0); Prothrombin Time 11.6 Seconds (9.0-12.0)
--- NOTE | 2020-01-27 22:20 | Emergency Department Note ---
ED Visit Note I have seen and examined this patient with Cristien Chapman and generally agree with the treatment plan as discussed. . : Urinary tract infection Qualifiers: Urinary tract infection type: acute cystitis Hematuria presence: with hematuria Qualified Code(s): N30.01 - Acute cystitis with hematuria
[2020-01-27 22:28] LABS: Alanine Aminotransferase 28 U/L (12-78); Albumin Level 3.3 gm/dl (3.4-5.0); Aspartate Aminotransferase 20 U/L (15-37); BUN Creatinine Ratio 18.5 (10-20); Blood Urea Nitrogen 23 mg/dl (7-18); Calcium 9.2 mg/dl (8.5-10.1); Carbon Dioxide 28 mmol/L (21-32); Chloride 103 mmol/L (98-107); Est GFR (African American) 46.8; Est GFR (Non-African American) 40.4; Glucose 115 mg/dl (70-99); Potassium 3.9 mmol/L (3.5-5.1); Sodium 136 mmol/L (136-145)
[2020-01-27] MEDS ORDERED: PIPERACILL/TAZOBAC CONSULT ACTIVE PRN (22:32)
[2020-01-27] MEDS ORDERED: PIPERACILLIN/TAZOBACTAM 4.5 GM/120 ML BAG IV ONE (22:32)
[2020-01-27 22:33] LABS: Albumin Globulin Ratio 0.9 (0.9-2); Alkaline Phosphatase 105 U/L (45-117); Globulin 3.8 gm/dl (2.5-4.0); Total Protein 7.1 gm/dl (6.4-8.2); Troponin I < 0.015 ng/ml (0-0.045)
[2020-01-27] MEDS ORDERED: IOVERSOL 100ml IV PRN (22:37)
[2020-01-27 23:15] LABS: Appearance Urine Turbid (Clear); Bacteria Urine Automated 2+ (Negative); Bilirubin Urine Negative (Negative); Blood Urine 3+ (Negative); Color Urine Yellow; Epithelial Cell Urine Auto 20-30 /lpf (0-5); Glucose Urine UA Negative (Negative); Ketones Urine Negative (Negative); Leukocyte Esterase Urine 3+ (Negative); Nitrite Urine Positive (Negative); Protein Urine 2+ (Negative); Specific Gravity Urine 1.031 (1.000-1.030); Urobilinogen Urine Negative (Negative); WBC Urine Automated >30 /hpf (0-5); pH Urine 5.5 (4.5-7.5)
--- NOTE | 2020-01-28 00:55 | History & Physical Report ---
Date of Service January 28, 2020 Assessment & Plan (1) Urinary tract infection: Ms. Smallwood is an 84-year-old woman with past medical history of bladder cancer, paroxysmal A. fib, COPD/asthma, who is here today with a complicated UTI/pyelonephritis Pyelonephritis Patient with 2 days of UTI symptoms and now left lower back pain, evidence of a sending urinary infection on CT scan No sign of obstruction despite history of bladder cancer We will treat with IV Zosyn Blood cultures urine cultures pending KELSEY Creatinine elevated to 1.24 from baseline within normal limits Patient and her daughter tell me that since she started feeling sick she has not been drinking or eating much of anything This is likely prerenal, will encourage p.o. intake as well as supplement with normal saline at 80 mils an hour patient received 500 mL bolus normal saline in emergency department Syncope: Likely vasovagal in setting of dehydration, repeated dry heaving We will place patient on customer strategy manager and monitor for any further presyncopal symptoms Will fluid resuscitate, 500 mL normal saline bolus in ED 80 mils an hour currently and encouraging p.o. intake Paroxysmal atrial fibrillation Patient not on anticoagulation, followed by Dr. Hampton patient and daughter unsure of reason for foregoing anticoagulation Possibly secondary to history of hematuria, will need follow-up with primary care as chadsVASC 3 with age and sex alone Bladder cancer Follows with urology Clayton Hendrix, no obstruction, no active hematuria, currently getting six-month appointments for surveillance Not on any active therapy for. It COPD We will continue patient's home albuterol, montelukast fluticasone/Vilanterol Patient denies any change from her baseline shortness of breath Chronic back pain: Continue patient's home Tylenol and diclofenac gel DVT prophylaxis: Lovenox Fluids/electrolytes/nutrition: Regular diet, normal saline at 80 mils per hour Disposition: Med telemetry, for IV antibiotics and cardiac monitoring with history of syncope (2) Syncope: (3) Back pain: (4) Asthma: (5) Bladder pain: (6) Moderate persistent asthma: (7) Borderline hypertension: (8) Bladder cancer: (9) Paroxysmal atrial fibrillation: (10) Spinal stenosis, lumbar region with neurogenic claudication: History of Present Illness Chief Complaint: Fever, chills, sweat Primary Care Provider: Jeffrey Pimentel MD Rehana Smallwood is a 84-year-old man with a past medical history of COPD, paroxysmal atrial fibrillation, bladder cancer status post resection, currently being surveilled by urology. Who presents with a 2-day history of subjective fevers, chills, back pain, increased urinary frequency, nausea, dry heaving and one syncopal episode and fall after a prolonged bout of dry heaving. Upon arrival to emergency department patient's vitals were within normal limits, patient reported pain across lower back which is chronic but worse on the left side currently, also describing chills and shakes. She denies any shortness of breath to report baseline, she denies any chest pain, she denies any abdominal pain, she says that her nausea was extreme but was relieved by antiemetics. Patient is very hard of hearing and daughter helps with some of the history. Patient says she is dry heaving over and over became quite sweaty and clammy and became lightheaded, found her in between toilet and bathtub, looks like she is slid off the toilet to the side. She does not endorse any head injury or pain to the head. Lab work significant for elevated white count 22.48 predominantly neutrophils with left shift BMP single elevated creatinine 1.2. UA with signs of infection elevated blood elevated nitrates leukoesterase positive white blood cells elevated. Bacteria 2+. Urine culture pending patient was given 1 dose of Zosyn, 500 mL normal saline Zofran and Tylenol emergency department and is feeling much better. She lives at home with her , no concerns about getting around at home, has been generally very healthy. Non smoker very occasional drinker, no drug use. Allergies Allergy/AdvReac Type Severity Reaction Status Date / Time No Known Allergies Allergy Verified 01/27/20 23:00 Home Medications Home Medications Medication Instructions Recorded Confirmed Type fexofenadine [Consuelo Allergy] 180 mg PO DAILY PRN 04/11/18 01/27/20 History multivitamin 1 tab PO DAILY 04/11/18 01/27/20 History levothyroxine 50 mcg tablet 50 mcg PO QAM #90 tab 05/03/19 01/27/20 Rx mometasone-formoterol HFA 200 2 puff INHALATION BID #13 gm 07/31/19 01/27/20 Rx mcg-5 mcg/actuation aerosol inhaler montelukast 10 mg tablet 10 mg PO QPM #30 tab 08/11/19 01/27/20 Rx tolterodine 4 mg capsule,extended 4 mg PO DAILY #90 cap 08/22/19 01/27/20 Rx release 24 hr carboxymethylcellulose sodium 1 drops OPB TID 10/02/19 01/27/20 History [Refresh Celluvisc] lorazepam 0.5 mg tablet 0.5 mg PO BID PRN #30 tab 01/24/20 01/27/20 Rx calcium carbonate-vitamin D3 1 tab PO DAILY 01/27/20 01/27/20 History [Caltrate with Vitamin D3] cholecalciferol (vitamin D3) 0 mcg PO DAILY 01/27/20 01/27/20 History [Vitamin D3] diclofenac sodium 4 g TOPICAL DIRECTED PRN 01/27/20 01/27/20 History levalbuterol tartrate [Xopenex HFA] 1 puff INHALATION Q6H PRN 01/27/20 01/27/20 History Past Med/Surg History Medical History Acute blood loss anemia (Inactive) Asthma stable Asthma (Chronic) Borderline hyperlipidemia Borderline hypertension (Chronic) anxiety related Chronic obstructive pulmonary disease + emphysema; stable GERD (gastroesophageal reflux disease) controlled Hx of bladder cancer s/p partial resection; under surveillance Hx of cancer of uterus s/p hysterectomy Hx of migraines HX: breast cancer s/p right breast mastectomy Hypothyroidism (Chronic) Hypothyroidism Macular degeneration of both eyes Moderate persistent asthma (Chronic) Osteoarthritis Paroxysmal atrial fibrillation (Chronic) Postoperative anemia due to acute blood loss (Resolved) Postoperative atrial fibrillation (Resolved) Spinal stenosis Surgical History History of appendectomy History of bladder surgery PARTIAL RESECTION History of section History of colonoscopy History of mastectomy RT BREAST History of tonsillectomy History of tooth extraction History of total abdominal hysterectomy and bilateral salpingo-oophorectomy Hx of cataract surgery LEFT Hx of decompressive lumbar laminectomy (Resolved) Family History Sister Breast cancer Irritable bowel syndrome Brother Alzheimer disease Brain cancer Father COPD (chronic obstructive pulmonary disease) Mother Heart disease Denies family history of Ovarian cancer Prostate cancer Myocardial infarction Colorectal cancer Social History Preferred Language: Thai Communication Ability: Effective Visual Impairment: No Limitations Hearing Ability: Use of Hearing Aid Php Architect Required: Voice Beliefs That Will Affect Care: None marital status: Current Living Situation: Spouse current occupational status: retired Other Information That Helps Us Care for You: No Feels Safe at Home: Yes Safety Concerns: Feels Safe At This Time Smoking Status: Never smoker Second Hand Exposure: No ; Hx Alcohol Use: No Hx Substance Use: No Childhood Exposure to Second-Hand Smoke: No caffeine: Yes Dental Care, Regularly: Yes Physical Activity Frequency: Daily Seatbelt Use: always Sunscreen Use: Yes Review of Systems Review of Systems: All systems reviewed & are unremarkable except as noted in HPI & below Physical Exam Constitutional: well developed, well nourished and average body habitus; no acute distress and not ill appearing Hard of hearing Eyes: PERRL, conjunctivae normal, anicteric sclerae ENMT: external ear and nose normal, oropharynx normal Respiratory: normal respiratory effort, lungs clear to auscultation Cardiovascular: RRR, no murmur, no edema Gastrointestinal (Abdomen): Inspection/Auscultation: abdomen normal to inspection and normal bowel sounds; abdomen not distended Percussion/Palpation: + abdomen tender (globally tender suprapubic is most tender) and abdomen soft; abdomen not rigid, no hepatomegaly and no splenomegaly Skin: no rashes, warm and dry Psychiatric: A+Ox3, euthymic affect Results & Data Results & Data ([facility]) Vital Signs (Past 12 Hours) Vital Signs Temp Pulse Resp BP Pulse Ox 01/28/20 00:37 70 19 123/62 98 01/28/20 00:01 70 20 125/48 L 99 01/27/20 22:57 74 21 106/58 L 99 01/27/20 21:24 96 H 23 117/55 L 97 01/27/20 21:11 36.5 C 72 16 98/62 L 99 Code Status & VTE Plan VTE Prophylaxis Plan VTE Prophylaxis will be ordered: Yes Supervising Physician Co-Signing Physician Notes Patient seen and examined, chart reviewed, case discussed with Dr. Dorantes and I agree with his assessment and plan as documented above. Briefly, patient is an 84yo C female with history of bladder CA s/p surgical excision presenting with 2 days of fever/chills/poor appetite/back pain/nausea. She had a syncopal event while dry heaving. Found to have cystitis/pyelonephritis On exam patient is ill in appearance and uncomfortable from back pain otherwise HD stable Skin - intact HEENT - slightly dry MM, neck supple, PERRL Heart - +S1/S2, regular, no m/r/g Lungs - CTA Abd - +BS, soft, NT/ND Ext - No edema +Back pain - CVA tenderness not assessed Labs and images reviewed, Significant for leukocytosiswith WBC=22.48, elevated BUN=23 and Cr=1.24. +UA CT with nonobstructing lower pole right renal calcification, suggestive of cystitis and inflammation of ureter on initial read Assessment/Plan - 84yo C female presenting with suspected UTI/Pyelonephritis. HD stable at present, however ill in appearance with marked leukocytosis -Admit to medical floor -Follow cultures -Tx with Zosyn, pain and nausea control as needed -IVF -Monitor renal function and electrolytes -Remainder of plan as above Resident Activity Tracking Resident Involvement: Resident Care Provided Care Provided: Adult Hospital Medicine (1) Urinary tract infection Hematuria presence: with hematuria Urinary tract infection type: acute cystitis Qualified Code(s): N30.01 - Acute cystitis with hematuria (2) Asthma Asthma complication type: uncomplicated Asthma persistence: intermittent Asthma severity: mild Qualified Code(s): J45.20 - Mild intermittent asthma, uncomplicated
[2020-01-28] MEDS ORDERED: POLYETHYLENE (MIRALAX) 17 GM PACK PO PRN (01:19)
[2020-01-28] MEDS ORDERED: PIPERACILL/TAZOBAC CONSULT ACTIVE PRN (01:19)
[2020-01-28] MEDS ORDERED: ACETAMINOPHEN 325 MG TAB PO PRN (01:19)
[2020-01-28] MEDS ORDERED: LEVALBUTEROL TARTRATE 15 GM HFA.AER.AD INH PRN (01:19)
[2020-01-28] MEDS ORDERED: FEXOFENADINE HCL 180 MG TAB PO PRN (01:19)
[2020-01-28] MEDS: LORazepam 0.5 MG TAB PO PRN (01:28)
[2020-01-28] MEDS: SODIUM CHLORIDE 0.9% 1000ML 1,000 ML IV SCH ×2 (01:29→14:17)
[2020-01-28] MEDS: DICLOFENAC SOD 1% GEL 100 GM TUBE EXT PRN (01:45)
[2020-01-28] MEDS ORDERED: MoRPHine SULFATE 2 MG/ML CARP IV STA (01:57)
[2020-01-28] MEDS: ONDANSETRON INJ 2 MG/ML 2 ML VIAL IV PRN (02:08)
[2020-01-28] MEDS: PIPERACILLIN/TAZOBACTAM 3.375 GM in DEXTROSE 5% 100 ML IV SCH ×3 (04:20→19:56)
[2020-01-28] MEDS: LEVOTHYROXINE SODIUM 50 MCG TABLET PO SCH (05:56)
[2020-01-28] MEDS: TRAMADOL HCL 50 MG TABLET PO PRN ×2 (06:22→17:02)
--- NOTE | 2020-01-28 06:31 | XRay Report ---
XR chest 1V portable CLINICAL HISTORY: SEPSIS dyspnea COMPARISON STUDY: 10/02/2019 FINDINGS: Minimal parenchymal interstitial infiltrate left base. Lungs otherwise appear clear. No sig nificant cardiac enlargement. IMPRESSION: Minimal interstitial infiltrate left base. ACT 112: Negative or not required by law. The above report was generated using voice recognition software. It may contain grammatical, syntax or spelling errors. Electronically signed by: Edu Chowdhury M.D. 01/28/2020 6:30 AM
--- NOTE | 2020-01-28 06:35 | CT Scan Report ---
CT head/brain wo con CT DOSE: 537.48 mGy.cm HISTORY: Mental status change syncope TECHNIQUE: Multiaxial CT images of the head were performed without the use of intravenous contrast. A dose lowering technique was utilized adhering to the principles of ALARA. Comparison: 10/02/2019 Findings: The paranasal sinuses and mastoid air cells are clear. The calvarium and skull base are int act. The ventricles and sulci are within normal limits. There is no mass, hematoma, midline shift, or acute infarct. Impression: No acute intracranial abnormality. Mild age-related chronic small vessel change ACT 112: Negative or not required by law. The above report was generated using voice recognition software. It may contain grammatical, syntax or spelling errors. Electronically signed by: Edu Chowdhury M.D. 01/28/2020 6:33 AM
--- NOTE | 2020-01-28 06:37 | CT Scan Report ---
CT abd pelvis IV con only CT DOSE: 271.62 mGy.cm HISTORY: Pain lower abd and flank pain, uti TECHNIQUE: Multiaxial CT images of the abdomen and pelvis were performed following the use of intrave nous contrast. A dose lowering technique was utilized adhering to the principles of ALARA. COMPARISON STUDY: 03/24/2019 FINDINGS: Lung bases are grossly clear. Liver spleen and pancreas are unremarkable. Kidneys and uniformly. There are negative for hydronephrosis. Nonobstructive bowel pattern. Postoperative changes involving the lumbar spine. Bladder is midline. No free fluid within the pelvic cul-de-sac. Nonobstructive lower pole right renal calcification. IMPRESSION: 1. Nonobstructing lower pole right renal calcification. 2. Stable postoperative changes lumbar spine. 3. Otherwise no acute process in the abdomen or pelvis. ACT 112: Negative or not required by law. The above report was generated using voice recognition software. It may contain grammatical, syntax or spelling errors. Electronically signed by: Edu Chowdhury M.D. 01/28/2020 6:36 AM
--- NOTE | 2020-01-28 07:07 | Billing Data ---
Date of Service January 28, 2020 Coding Level of Care Code 86442 Initial Inpt Care Lvl 3
[2020-01-28] MEDS: TOLTERODINE TARTRATE LA 4 MG CAPCR PO SCH (08:39)
[2020-01-28] MEDS: CALCIUM 600MG + VIT D 400 IU TAB PO SCH (08:39)
[2020-01-28] MEDS: MULTIVITAMIN TAB PO SCH (08:39)
[2020-01-28] MEDS: ENOXAPARIN INJ 30 MG/0.3 ML SYR SQ SCH (08:44)
[2020-01-28] MEDS: LIDOCAINE 5% 1 PATCH TD SCH (09:09)
[2020-01-28] MEDS: FLUTICASONE/VILANTEROL 200/25MCG 14 PUFFS/INHALER INH SCH (09:10)
[2020-01-28] MEDS: ARTIFICIAL TEARS OP SCH ×3 (09:10→20:10)
[2020-01-28 10:25] LABS: Hematocrit (blood only) 34.1 % (37-47); Hemoglobin 11.3 g/dL (12.0-16.0); Mean Corpuscular Hemoglobin 29.4 pg (25-34); Mean Corpuscular Hgb Conc 33.1 g/dL (32-36); Mean Corpuscular Volume 88.8 fL (80-100); Mean Platelet Volume 10.6 fL (7.4-10.4); Platelet Count 170 K/uL (130-400); RDW Coefficient of Variation 15.2 % (11.5-14.5); RDW Standard Deviation 49.2 fL (36.4-46.3); Red Blood Count 3.84 M/uL (4.2-5.4); White Blood Count 20.22 K/uL (4.8-10.8)
[2020-01-28 11:04] LABS: Calcium 8.6 mg/dl (8.5-10.1); Creatinine Clr Calc Pharmacy 24.5 ml/min; Est GFR (African American) 42.3; Est GFR (Non-African American) 36.5; Potassium 3.3 mmol/L (3.5-5.1)
[2020-01-28 11:09] LABS: Basophils # (auto) 0.01 K/uL (0-0.2); Dohle Bodies 1+; Immature Granulocytes # (auto) 0.19 K/uL (0.00-0.02); Immature Granulocytes % (auto) 0.9 %; Lymphocytes # (auto) 0.55 K/uL (1.2-3.4); Lymphocytes % (auto) 2.7 %; Monocytes # (auto) 1.14 K/uL (0.11-0.59); Monocytes % (auto) 5.6 %; Neutrophils # (auto) 18.33 K/uL (1.4-6.5); Neutrophils % (auto) 90.8 %; Ovalocytes 2+; Toxic Vacuolation 1+
--- NOTE | 2020-01-28 11:54 | Hospitalist Progress Note ---
Date of Service January 28, 2020 Assessment & Plan (1) Urinary tract infection: With possible pyelonephritis Patient with 2 days of UTI symptoms and now left lower back pain though no obvious inflammation on the CT No sign of obstruction despite history of bladder cancer Continue IV Zosyn Blood cultures and urine cultures pending DVT prophylaxis: Lovenox Fluids/electrolytes/nutrition: Regular diet, normal saline at 80 mils per hour Disposition: Med telemetry, for IV antibiotics and cardiac monitoring with history of syncope (2) Syncope: Likely vasovagal in setting of dehydration, repeated dry heaving. She does think she hit her head as there is a sore spot. CT head on admission was normal No events on telemetry Continue NSS @ 80 mls/hr (3) Back pain: Chronic, continue lidoderm patch, Tylenol (4) Asthma: We will continue patient's home albuterol, montelukast fluticasone/Vilanterol Patient denies any change from her baseline shortness of breath (5) Bladder cancer: Follows with urology Clayton Hendrix, no obstruction, no active hematuria, currently getting six-month appointments for surveillance Not on any active therapy for. (6) Paroxysmal atrial fibrillation: Patient not on anticoagulation, followed by Dr. Hampton, patient and daughter unsure of reason for foregoing anticoagulation Possibly secondary to history of hematuria, will need follow-up with primary care as chadsVASC 3 with age and sex alone (7) Acute kidney injury: Mild, creat 1.35 today, continue IVF Admission and Anticipated Discharge Date Admission Date: January 28, 2020 Subjective Ms Smallwood is feeling better than when she came in but still somewhat nauseas and fatigued with back pain. No dysuria. Daughter Kimberly updated by phone ROS Constitutional: no chills, aches, sweats or fever Respiratory: no sob,cough, sputum, or wheezing Cardiac: no chest pain, palpitations, edema, orthopnea or lightheadedness GI: see HPI : no dysuria or hesitancy Extremities: no joint pain or weakness Skin: no rash All other systems reviewed and negative Physical Exam Physical Exam: General: no distress Eyes: normal inspection, PERLL Respiratory: chest non tender, clear to auscultation, normal breath sounds, no respiratory distress, no accessory muscle use Cardiac: regular rate and rhythm, no rub or gallop, no murmur, no edema, no jvd GI/: active bowel sounds, no abd pain or tenderness, soft, non distended Extremities: normal range of motion, normal strength, non tender Neuro/Psych: alert and oriented x 3, normal mood and affect Skin: normal color, dry Results & Data Results & Data ([facility]) Vital Signs (Past 12 Hours) Vital Signs Temp Pulse Pulse Resp BP BP BP 01/28/20 11:36 36.7 C 80 18 109/65 01/28/20 07:39 37.1 C 79 16 113/64 01/28/20 03:16 89 01/28/20 02:47 37 C 83 28 H 100/47 L 01/28/20 01:17 36.6 C 84 14 134/65 01/28/20 00:37 70 19 123/62 01/28/20 00:01 70 20 125/48 L Pulse Ox 01/28/20 11:36 95 01/28/20 07:39 96 01/28/20 03:16 01/28/20 02:47 91 01/28/20 01:17 97 01/28/20 00:37 98 01/28/20 00:01 99 PG Care Time/CCT Total # of Minutes Spent Total Time Spent with Patient: Total time spent is greater than 50% in coordination of care (as documented) at patient's floor/unit and/or counseling patient: Coding Level of Care Code 21463 Subseq Hosp Care Lvl 3 Diagnoses Urinary tract infection N30.01 Hematuria presence: with hematuria Urinary tract infection type: acute cystitis Syncope R55 Back pain M54.9 Asthma J45.20 Asthma complication type: uncomplicated Asthma persistence: intermittent Asthma severity: mild Bladder cancer C67.9 Paroxysmal atrial fibrillation I48.0 Acute kidney injury N17.9 (1) Urinary tract infection Hematuria presence: with hematuria Urinary tract infection type: acute cystitis Qualified Code(s): N30.01 - Acute cystitis with hematuria (2) Asthma Asthma complication type: uncomplicated Asthma persistence: intermittent Asthma severity: mild Qualified Code(s): J45.20 - Mild intermittent asthma, uncomplicated
[2020-01-28] MEDS ORDERED: POTASSIUM CHLORIDE 20 MEQ TABCR PO STA (11:59)
--- NOTE | 2020-01-28 12:27 | Electrocardiogram Report ---
Test Reason : Blood Pressure : / mmHG Vent. Rate : 079 BPM Atrial Rate : 079 BPM P-R Int : 208 ms QRS Dur : 082 ms QT Int : 390 ms P-R-T Axes : 041 -02 025 degrees QTc Int : 447 ms Normal sinus rhythm with sinus arrhythmia Normal ECG When compared with ECG of 02-OCT-2019 18:38, No significant change was found Confirmed by Michel Olivas ([id number]) on 01/28/2020 12:27:16 PM Referred By: REFERRED SELF Confirmed By:Duane Olivas
[2020-01-28] MEDS: MONTELUKAST SODIUM 10 MG TABLET PO SCH (20:00)
[2020-01-29] MEDS: SODIUM CHLORIDE 0.9% 1000ML 1,000 ML IV SCH ×2 (02:54→14:02)
[2020-01-29] MEDS: PIPERACILLIN/TAZOBACTAM 3.375 GM in DEXTROSE 5% 100 ML IV SCH ×3 (04:14→20:15)
[2020-01-29] MEDS: LEVOTHYROXINE SODIUM 50 MCG TABLET PO SCH (06:16)
[2020-01-29 06:59] LABS: Creatinine Clr Calc Pharmacy 33.1 ml/min; Est GFR (African American) 60.8; Est GFR (Non-African American) 52.4
[2020-01-29] MEDS: LIDOCAINE 5% 1 PATCH TD SCH (08:00)
[2020-01-29] MEDS: ARTIFICIAL TEARS OP SCH ×3 (08:02→20:16)
[2020-01-29] MEDS: FLUTICASONE/VILANTEROL 200/25MCG 14 PUFFS/INHALER INH SCH (08:02)
[2020-01-29] MEDS: MULTIVITAMIN TAB PO SCH (08:03)
[2020-01-29] MEDS: TOLTERODINE TARTRATE LA 4 MG CAPCR PO SCH (08:03)
[2020-01-29] MEDS: CALCIUM 600MG + VIT D 400 IU TAB PO SCH (08:03)
[2020-01-29] MEDS: ENOXAPARIN INJ 30 MG/0.3 ML SYR SQ SCH (08:03)
[2020-01-29 09:33] LABS: Hematocrit (blood only) 30.1 % (37-47); Hemoglobin 9.8 g/dL (12.0-16.0); Mean Corpuscular Hgb Conc 32.6 g/dL (32-36); Mean Corpuscular Volume 89.1 fL (80-100); Mean Platelet Volume 11.3 fL (7.4-10.4); Platelet Count 163 K/uL (130-400); RDW Coefficient of Variation 15.2 % (11.5-14.5); RDW Standard Deviation 49.3 fL (36.4-46.3); Red Blood Count 3.38 M/uL (4.2-5.4)
[2020-01-29] MEDS: MONTELUKAST SODIUM 10 MG TABLET PO SCH (20:16)
[2020-01-29] MEDS: TRAMADOL HCL 50 MG TABLET PO PRN (20:19)
[2020-01-29] MEDS ORDERED: MoRPHine SULFATE 2 MG/ML CARP IV STA (20:51)
--- NOTE | 2020-01-29 21:36 | Hospitalist Progress Note ---
Date of Service January 29, 2020 Assessment & Plan (1) Urinary tract infection: With possible pyelonephritis Patient with 2 days of UTI symptoms and now left lower back pain though no obvious inflammation on the CT No sign of obstruction despite history of bladder cancer Continue IV Zosyn Blood cultures and urine cultures pending Patient appears to be improving. No signs of peritonitis, pain may be from cystitis. DVT prophylaxis: Lovenox Fluids/electrolytes/nutrition: Regular diet, normal saline at 80 mils per hour Disposition: Med telemetry, for IV antibiotics and cardiac monitoring with history of syncope (2) Syncope: Likely vasovagal in setting of dehydration, repeated dry heaving. She does think she hit her head as there is a sore spot. CT head on admission was normal No events on telemetry dehydration appears to have resolved. will hold further iVF (3) Back pain: Chronic, continue lidoderm patch, Tylenol (4) Asthma: We will continue patient's home albuterol, montelukast fluticasone/Vilanterol Patient denies any change from her baseline shortness of breath (5) Bladder cancer: Follows with urology Clayton Hendrix, no obstruction, no active hematuria, currently getting six-month appointments for surveillance Not on any active therapy for. (6) Paroxysmal atrial fibrillation: Patient not on anticoagulation, followed by Dr. Hampton, patient and daughter unsure of reason for foregoing anticoagulation Possibly secondary to history of hematuria, will need follow-up with primary care as chadsVASC 3 with age and sex alone (7) Acute kidney injury: Resolved. Admission and Anticipated Discharge Date Admission Date: January 28, 2020 Subjective 84 YO FEMALE COMPLAINS OF STILL FEELING WEAK AND TIRED. ALSO COMPLAINING OF LOWER ABDOMINAL PAIN. She states her urinary incontinence has improved. Review of Systems Review of Systems: All systems reviewed & are unremarkable except as noted in HPI & below Physical Exam Physical Exam: General: no distress Eyes: normal inspection, PERLL Respiratory: chest non tender, clear to auscultation, normal breath sounds, no respiratory distress, no accessory muscle use Cardiac: regular rate and rhythm, no rub or gallop, no murmur, no edema, no jvd GI/: active bowel sounds, no abd pain or tenderness, soft, non distended Extremities: normal range of motion, normal strength, non tender Neuro/Psych: alert and oriented x 3, normal mood and affect Skin: normal color, dry Results & Data Results & Data ([facility]) Vital Signs (Past 12 Hours) Vital Signs Temp Pulse Pulse Resp BP Pulse Ox 01/29/20 20:00 37.3 C 86 18 143/74 H 93 01/29/20 15:19 71 01/29/20 15:10 36.7 C 82 18 133/62 97 01/29/20 11:16 37.0 C 75 19 110/67 95 PG Care Time/CCT Total # of Minutes Spent Total Time Spent with Patient: Total time spent is greater than 50% in coordination of care (as documented) at patient's floor/unit and/or counseling patient: Coding Level of Care Code 22580 Subseq Hosp Care Lvl 3 Diagnoses Urinary tract infection N30.01 Hematuria presence: with hematuria Urinary tract infection type: acute cystitis Syncope R55 Back pain M54.9 Asthma J45.20 Asthma complication type: uncomplicated Asthma persistence: intermittent Asthma severity: mild Bladder cancer C67.9 Paroxysmal atrial fibrillation I48.0 Acute kidney injury N17.9 Time Spent (min) 35 (1) Urinary tract infection Hematuria presence: with hematuria Urinary tract infection type: acute cystitis Qualified Code(s): N30.01 - Acute cystitis with hematuria (2) Asthma Asthma complication type: uncomplicated Asthma persistence: intermittent Asthma severity: mild Qualified Code(s): J45.20 - Mild intermittent asthma, uncomplicated
[2020-01-30] MEDS: ONDANSETRON INJ 2 MG/ML 2 ML VIAL IV PRN (00:25)
[2020-01-30] MEDS: METOPROLOL TARTRATE 1 MG/ML VIAL IV PRN ×2 (00:42→01:06)
[2020-01-30] MEDS ORDERED: POLYETHYLENE (MIRALAX) 17 GM PACK PO ONE (00:45)
[2020-01-30 01:15] LABS: Creatinine Clr Calc Pharmacy 32.8 ml/min; Est GFR (Non-African American) 51.8; Magnesium 1.7 mg/dl (1.8-2.4); Potassium 3.6 mmol/L (3.5-5.1)
[2020-01-30 01:19] LABS: Phosphorus 2.3 mg/dl (2.5-4.9); Troponin I < 0.015 ng/ml (0-0.045)
[2020-01-30] MEDS ORDERED: POTASSIUM PHOS 3 MMOL/1 ML INFUSION IV STA (02:11)
[2020-01-30] MEDS ORDERED: GLYCERIN ADULT 12 SUPP/BOX SUPP PR ONE (02:15)
[2020-01-30] MEDS ORDERED: POTASSIUM PHOSPHATE 15 MMOL in SODIUM CHLORIDE 0.9% 250 ML IV ONE (02:30)
[2020-01-30] MEDS: PIPERACILLIN/TAZOBACTAM 3.375 GM in DEXTROSE 5% 100 ML IV SCH (03:45)
[2020-01-30] MEDS: LEVOTHYROXINE SODIUM 50 MCG TABLET PO SCH (06:28)
--- NOTE | 2020-01-30 06:51 | Communication Note ---
Date of Service: January 30, 2020 Called to patient's room to evaluate her rapid heart rate. ECG obtained showing a fib with RVR. Patient with known history of paroxysmal a fib not on antic oagulation. K mag and Phos checked, will replete electrolytes and given 2 doses of lopressor. On re evaluation patient returned to [facility].
[2020-01-30] MEDS: POTASSIUM CHLORIDE / WTR 10 MEQ/100 ML PLCT IV SCH ×4 (07:14→11:10)
[2020-01-30] MEDS: MAGNESIUM OXIDE 400 MG TAB PO SCH ×2 (07:57→20:50)
[2020-01-30] MEDS: CALCIUM 600MG + VIT D 400 IU TAB PO SCH (07:57)
[2020-01-30] MEDS: TOLTERODINE TARTRATE LA 4 MG CAPCR PO SCH (07:58)
[2020-01-30] MEDS: MULTIVITAMIN TAB PO SCH (07:58)
[2020-01-30] MEDS: POLYETHYLENE (MIRALAX) 17 GM PACK PO SCH ×2 (07:58→20:48)
[2020-01-30] MEDS: ARTIFICIAL TEARS OP SCH ×3 (07:58→20:51)
[2020-01-30] MEDS: FLUTICASONE/VILANTEROL 200/25MCG 14 PUFFS/INHALER INH SCH (07:58)
[2020-01-30] MEDS: ENOXAPARIN INJ 30 MG/0.3 ML SYR SQ SCH (07:59)
[2020-01-30] MEDS: LIDOCAINE 5% 1 PATCH TD SCH (07:59)
[2020-01-30 09:04] LABS: Basophils # (auto) 0.03 K/uL (0-0.2); Basophils % (auto) 0.4 %; Eosinophils # (auto) 0.16 K/uL (0-0.5); Eosinophils % (auto) 2.1 %; Hematocrit (blood only) 31.5 % (37-47); Hemoglobin 10.3 g/dL (12.0-16.0); Immature Granulocytes # (auto) 0.03 K/uL (0.00-0.02); Immature Granulocytes % (auto) 0.4 %; Lymphocytes # (auto) 1.18 K/uL (1.2-3.4); Lymphocytes % (auto) 15.7 %; Mean Corpuscular Hgb Conc 32.7 g/dL (32-36); Mean Corpuscular Volume 88.7 fL (80-100); Mean Platelet Volume 10.7 fL (7.4-10.4); Monocytes # (auto) 0.59 K/uL (0.11-0.59); Monocytes % (auto) 7.8 %; Neutrophils # (auto) 5.53 K/uL (1.4-6.5); Neutrophils % (auto) 73.6 %; Platelet Count 158 K/uL (130-400); RDW Coefficient of Variation 14.9 % (11.5-14.5); RDW Standard Deviation 48.6 fL (36.4-46.3); Red Blood Count 3.55 M/uL (4.2-5.4); White Blood Count 7.52 K/uL (4.8-10.8)
[2020-01-30 09:32] LABS: Albumin Level 2.6 gm/dl (3.4-5.0); BUN Creatinine Ratio 18.4 (10-20); Creatinine Clr Calc Pharmacy 33.4 ml/min; Est GFR (African American) 61.5; Est GFR (Non-African American) 53.1; Potassium 4.2 mmol/L (3.5-5.1)
[2020-01-30 09:34] LABS: Albumin Globulin Ratio 0.8 (0.9-2); Bilirubin,Total 0.4 mg/dl (0.2-1); Globulin 3.4 gm/dl (2.5-4.0)
[2020-01-30] MEDS ORDERED: AMOXICILLIN/CLAVULANATE 875 MG TAB PO ONE (11:44)
[2020-01-30] MEDS: dilTIAZem ER 120 MG CAPCR PO SCH (13:06)
[2020-01-30] MEDS: POT PHOSPHATE MONOBASIC W/ SOD TAB PO SCH ×3 (13:06→20:48)
[2020-01-30] MEDS: TRAMADOL HCL 50 MG TABLET PO PRN (15:57)
[2020-01-30] MEDS: AMOXICILLIN/CLAVULANATE 875 MG TAB PO SCH (17:20)
[2020-01-30] MEDS: DICLOFENAC SOD 1% GEL 100 GM TUBE EXT PRN (17:21)
[2020-01-30] MEDS: APIXABAN 2.5 MG TAB PO SCH (20:49)
[2020-01-30] MEDS: MONTELUKAST SODIUM 10 MG TABLET PO SCH (20:50)
--- NOTE | 2020-01-30 23:32 | Hospitalist Progress Note ---
Date of Service January 30, 2020 Assessment & Plan (1) Urinary tract infection: With possible pyelonephritis Patient with 2 days of UTI symptoms and now left lower back pain though no obvious inflammation on the CT No sign of obstruction despite history of bladder cancer Culture came back: showed pansensitive e. coli. will place on augmentin. will monitor. Blood cultures and urine cultures pending Patient appears to be improving. No signs of peritonitis, pain may be from cystitis. DVT prophylaxis: Lovenox Fluids/electrolytes/nutrition: Regular diet, normal saline at 80 mils per hour Disposition: Med telemetry, for IV antibiotics and cardiac monitoring with history of syncope (2) Syncope: Likely vasovagal in setting of dehydration, repeated dry heaving. She does think she hit her head as there is a sore spot. CT head on admission was no rmal No events on telemetry dehydration appears to have resolved. will hold further iVF (3) Back pain: Chronic, continue lidoderm patch, Tylenol (4) Asthma: We will continue patient's home albuterol, montelukast fluticasone/Vilanterol Patient denies any change from her baseline shortness of breath (5) Bladder cancer: Follows with urology Clayton Hendrix, no obstruction, no active hematuria, currently getting six-month appointments for surveillance Not on any active therapy for. (6) Paroxysmal atrial fibrillation: will place on cardizem and anticoagulation patient will be on eliquis. (7) Acute kidney injury: Resolved. Admission and Anticipated Discharge Date Admission Date: January 28, 2020 Subjective Patient's main complaint is right shoulder pain and arm pain. She attributes this to her IV FLUIDS. Review of Systems Review of Systems: All systems reviewed & are unremarkable except as noted in HPI & below Physical Exam Physical Exam: General: no distress Eyes: normal inspection, PERLL Respiratory: chest non tender, clear to auscultation, normal breath sounds, no respiratory distress, no accessory muscle use Cardiac: regular rate and rhythm, no rub or gallop, no murmur, no edema, no jvd GI/: active bowel sounds, no abd pain or tenderness, soft, non distended Extremities: normal range of motion, normal strength, non tender Neuro/Psych: alert and oriented x 3, normal mood and affect Skin: normal color, dry Results & Data Results & Data ([facility]) Vital Signs (Past 12 Hours) Vital Signs Temp Pulse Resp BP BP Pulse Ox 01/30/20 20:13 37.2 C 84 20 129/56 L 92 01/30/20 16:16 37.0 C 76 18 128/65 96 01/30/20 12:54 37.3 C 70 16 122/76 97 PG Care Time/CCT Total # of Minutes Spent Total Time Spent with Patient: Total time spent is greater than 50% in coordination of care (as documented) at patient's floor/unit and/or counseling patient: Coding Level of Care Code 09635 Subseq Hosp Care Lvl 3 Diagnoses Urinary tract infection N30.01 Hematuria presence: with hematuria Urinary tract infection type: acute cystitis Syncope R55 Back pain M54.9 Asthma J45.20 Asthma severity: mild Asthma persistence: intermittent Asthma complication type: uncomplicated Bladder cancer C67.9 Paroxysmal atrial fibrillation I48.0 Acute kidney injury N17.9 Time Spent (min) 35 (1) Urinary tract infection Hematuria presence: with hematuria Urinary tract infection type: acute cystitis Qualified Code(s): N30.01 - Acute cystitis with hematuria (2) Asthma Asthma severity: mild Asthma persistence: intermittent Asthma complication type: uncomplicated Qualified Code(s): J45.20 - Mild intermittent asthma, uncomplicated
[2020-01-31] MEDS: LORazepam 0.5 MG TAB PO PRN (00:01)
[2020-01-31] MEDS: LEVOTHYROXINE SODIUM 50 MCG TABLET PO SCH (06:21)
[2020-01-31 07:17] LABS: Creatinine Clr Calc Pharmacy 40.5 ml/min; Est GFR (African American) 76.1; Est GFR (Non-African American) 65.7
[2020-01-31] MEDS: dilTIAZem ER 120 MG CAPCR PO SCH (07:44)
[2020-01-31] MEDS: MULTIVITAMIN TAB PO SCH (07:44)
[2020-01-31] MEDS: TOLTERODINE TARTRATE LA 4 MG CAPCR PO SCH (07:44)
[2020-01-31] MEDS: FLUTICASONE/VILANTEROL 200/25MCG 14 PUFFS/INHALER INH SCH (07:44)
[2020-01-31] MEDS: CALCIUM 600MG + VIT D 400 IU TAB PO SCH (07:44)
[2020-01-31] MEDS: MAGNESIUM OXIDE 400 MG TAB PO SCH (07:44)
[2020-01-31] MEDS: AMOXICILLIN/CLAVULANATE 875 MG TAB PO SCH (07:45)
[2020-01-31] MEDS: APIXABAN 2.5 MG TAB PO SCH (07:45)
[2020-01-31] MEDS: POT PHOSPHATE MONOBASIC W/ SOD TAB PO SCH (07:45)
[2020-01-31] MEDS: LIDOCAINE 5% 1 PATCH TD SCH (07:46)
[2020-01-31] MEDS: POLYETHYLENE (MIRALAX) 17 GM PACK PO SCH (07:46)
[2020-01-31] MEDS: ARTIFICIAL TEARS OP SCH ×2 (07:52→13:30)
[2020-01-31 09:10] LABS: BUN Creatinine Ratio 16.9 (10-20); Creatinine Clr Calc Pharmacy 40.1 ml/min; Est GFR (Non-African American) 64.7; Magnesium 1.9 mg/dl (1.8-2.4); Potassium 3.9 mmol/L (3.5-5.1)
[2020-01-31 09:11] LABS: Phosphorus 4.3 mg/dl (2.5-4.9)
--- NOTE | 2020-02-07 08:10 | Discharge Summary ---
Date of Service January 31, 2020 Admission HPI Per Admitting Provider Rehana Smallwood is a 84-year-old man with a past medical history of COPD, paroxysmal atrial fibrillation, bladder cancer status post resection, currently being surveilled by urology. Who presents with a 2-day history of subjective fevers, chills, back pain, increased urinary frequency, nausea, dry heaving and one syncopal episode and fall after a prolonged bout of dry heaving. Upon arrival to emergency department patient's vitals were within normal limits, patient reported pain across lower back which is chronic but worse on the left side currently, also describing chills and shakes. She denies any shortness of breath to report baseline, she denies any chest pain, she denies any abdominal pain, she says that her nausea was extreme but was relieved by antiemetics. Patient is very hard of hearing and daughter helps with some of the history. Patient says she is dry heaving over and over became quite sweaty and clammy and became lightheaded, found her in between toilet and bathtub, looks like she is slid off the toilet to the side. She does not endorse any head injury or pain to the head. Lab work significant for elevated white count 22.48 predominantly neutrophils with left shift BMP single elevated creatinine 1.2. UA with signs of infection elevated blood elevated nitrates leukoesterase positive white blood cells elevated. Bacteria 2+. Urine culture pending patient was given 1 dose of Zosyn, 500 mL normal saline Zofran and Tylenol emergency department and is feeling much better. She lives at home with her , no concerns about getting around at home, has been generally very healthy. Non smoker very occasional drinker, no drug use. Principal Diagnosis acute pyelonephritis Discharge Exam General: no distress Eyes: normal inspection, PERLL Respiratory: chest non tender, clear to auscultation, normal breath sounds, no respiratory distress, no accessory muscle use Cardiac: regular rate and rhythm, no rub or gallop, no murmur, no edema, no jvd GI/: active bowel sounds, no abd pain or tenderness, soft, non distended Extremities: normal range of motion, normal strength, non tender Neuro/Psych: alert and oriented x 3, normal mood and affect Skin: normal color, dry Discharge Data Allergies Allergy/AdvReac Type Severity Reaction Status Date / Time No Known Allergies Allergy Verified 02/06/20 14:30 Consultations 01/27/20 23:39 ED Decision to Admit Stat Ordered Studies 01/27/20 21:42 CT abd pelvis IV con only Stat CT head/brain wo con Stat Hospital Course (1) Urinary tract infection: With possible pyelonephritis Patient arrived with 2 days of UTI symptoms and now left lower back pain though no obvious inflammation on the CT No sign of obstruction despite history of bladder cancer Failed outpatient treatment as likely patient had ascending UTI. Culture came back: showed pansensitive e. coli. will place on augmentin. will monitor. Patient appears to have improved and can be discharged. updated daughter. (2) Syncope: Likely vasovagal in setting of dehydration, repeated dry heaving. She does think she hit her head as there is a sore spot. CT head on admission was normal No events on telemetry dehydration appears to have resolved. (3) Back pain: Chronic, continue lidoderm patch, Tylenol (4) Asthma: We will continue patient's home albuterol, montelukast fluticasone/Vilanterol Patient denies any change from her baseline shortness of breath (5) Bladder cancer: Follows with urology Clayton Hendrix, no obstruction, no active hematuria, currently getting six-month appointments for surveillance Not on any active therapy for. (6) Paroxysmal atrial fibrillation: Tolerated cardizem and anticoagulation patient will be on eliquis. (7) Acute kidney injury: Resolved. Total Time Total Time Spent Total Time Spent (In Minutes): 32 Total Time Includes: Examination of the Patient, Discharge Planning and Medication Reconciliation Discharge Plan Discharge Items Patient Disposition: Home - Self-Care Reason For Visit: PYELONEPHRITIS Discharge Diagnosis: urinary tract infection Condition on Discharge: Fair Activity: Resume your previous activity Non-emergency contact: Primary Care Provider Call non-emergency contact if: you have any medication questions Follow-up/Referrals: Jeffrey Pimentel MD [Primary Care Provider] - 02/06/20 2:30 pm (Your appointment is with Dr. Pimentel's physician physician assistant primary care, Becky Holbrook at [facility] office. If you need to change this appointment, please call [phone].) Andrey Hampton MD [Physician] - 02/23/20 3:00 pm (Your appointment is with Dr. Hampton's Physician Material [facility] on February 22 at 3:[address] Hampton's office would like to see you sooner, they will call you with a new appointment time and date. If you need to change this appointment, please call [phone].) Diet: Low Sodium (2gm) Addtl Attending Provider Instructions: You were hospitalized for UTI. You were found to have bacteria in the blood stream as well. You will be discharged on 10 days worth of antibiotics. You are also on a new blood thinner and medication to help control your heart rate, Will get you set up with Andrey Hampton as an outpatient. Pending Studies at Discharge: No Stand-Alone Forms: My [facility] [employer], Smoking Cessation Medications and DC Order Prescriptions: New acetaminophen 325 mg Tablet 650 mg PO Q4H PRN (Reason: pain) Qty: 30 RF: 0 magnesium oxide 400 mg (241.3 mg magnesium) Tablet 400 mg PO BID Qty: 6 RF: 0 diltiazem HCl [Taztia XT] 120 mg Capsule,Extended Release 24 Hr 120 mg PO QAM Qty: 30 RF: 0 lidocaine 5 % Adhesive Patch,Medicated 1 patch transdermal QAM Qty: 7 RF: 0 amoxicillin-pot clavulanate [Augmentin] 875-125 mg Tablet 1 tab PO BIDM Qty: 20 RF: 0 Eliquis 2.5 mg Tablet 2.5 mg PO BID Qty: 60 RF: 0 Continued levothyroxine 50 mcg tablet 50 mcg PO QAM Qty: 90 RF: 3 montelukast 10 mg tablet 10 mg PO QPM Qty: 30 RF: 11 tolterodine 4 mg capsule,extended release 24hr 4 mg PO DAILY Qty: 90 RF: 3 Dulera 200-5 mcg/actuation HFA aerosol inhaler 2 puff INHALATION BID Qty: 13 RF: 11 lorazepam 0.5 mg tablet 0.5 mg PO BID PRN (Reason: Anxiety) Qty: 30 RF: 0 fexofenadine [Consuelo Allergy] 180 mg Tablet 180 mg PO DAILY PRN (Reason: ALLERGY RELIEF) RF: 0 multivitamin Tablet 1 tab PO DAILY RF: 0 Refresh Celluvisc 1 % dropperette,gel 1 drops OPB TID RF: 0 cholecalciferol (vitamin D3) [Vitamin D3] 25 mcg (1,000 unit) Tablet 0 mcg PO DAILY RF: 0 diclofenac sodium 1 % gel 4 g TOPICAL DIRECTED PRN (Reason: Pain) RF: 0 calcium carbonate-vitamin D3 [Caltrate with Vitamin D3] 600 mg(1,500mg) -800 unit Tablet 1 tab PO DAILY RF: 0 levalbuterol tartrate [Xopenex HFA] 45 mcg/actuation Hfa Aerosol Inhaler 1 puff INHALATION Q6H PRN (Reason: Shortness Of Breath Or Wheezing) RF: 0 Discharge Orders: Discharge Order (Routine); Ordered 01/31/20 Ordered By: Rome Talbert Admission Data Admit Date/Time: 01/28/20 01:12 Attending Provider: Rome Talbert Admit Provider: Corey Dorantes Primary Care Provider: Jeffrey Pimentel Other Providers: Kt Cheng ; Blanca Knox Other Interventions: Discharge Summary Assessment (RN) Last Done: 01/31/20 13:05 DC Date/Time DO NOT enter until pt leaves facility: 01/31/20 13:46 Coding Level of Care Code D/C Day Management >30 mins Diagnoses Urinary tract infection N30.01 Hematuria presence: with hematuria Urinary tract infection type: acute cystitis Syncope R55 Back pain M54.9 Asthma J45.20 Asthma severity: mild Asthma persistence: intermittent Asthma complication type: uncomplicated Bladder cancer C67.9 Paroxysmal atrial fibrillation I48.0 Acute kidney injury N17.9 Time Spent (min) 32
== END 2020-01-31 13:46 | disposition home or self-care (01) | DRG 690 ==
LOC: ED 21:03 → 3W 01-28 01:00 → SUATTDRO 01-28 01:12 → 2N 01-28 02:41

== ENCOUNTER 2024-06-19 15:57 | Inpatient (IN) ==
--- NOTE | 2024-06-19 21:20 | History & Physical Report ---
Date of Service June 19, 2024 Assessment & Plan (1) Lethargy: Plan: In setting of leucocytosis with neutrophilia suspect underlying infection as the cause. No definitive etiology from history or exam. CXR per my read show no acute cardiopulmonary abnormality UA pending - if positive will started on ceftriaxone Bilateral lower extremity excoriation without overt cellulitis - previously on Keflex in May for suspected cellulitis Procalcitonin and blood cultures pending (2) Elevated troponin: Plan: Exertional chest pressure mentioned by patient but history likely unreliable Suspect demand-ischemia in the absence of resting symptoms and EKG changes Repeat EKG here pending ASA 324mg PO now then 81mg PO daily Trend troponin overnight TTE Consider stress testing inpatient/outpatient given stable anginal chest pressure (3) Paroxysmal atrial fibrillation: Plan: Continue Eliquis - doubtful need for cardiac catheterization therefore will defer switching to heparin given main concern for infection rather than cardiac at time of admission Continue rate control with metoprolol (4) Leukocytosis: Plan Asthma - continue maintenance inhalers and montelukast, no wheezing to suggest exacerbation HTN - continue amlodipine Anxietry - continue duloxetine Hypothyroidism - TSH with reflex, continue levothyroxine VTE Prophylaxis - Eliquis Diet - heart healthy Disposition - admit to PCU Admission and Anticipated Discharge Date Admission Date: June 19, 2024 History of Present Illness Chief Complaint: Elevated troponin Primary Care Provider: DO Rehana Church is an 89 year old female who presents as a direct admission from [place] ER due to lethargy with an elevated troponin. She reports her only symptom being lethargy for the last 2-3 days with generalized weakness. No sinus pain, nasal congestion, sore throat, chest pain, shortness of breath, diarrhea, abdominal pain, nausea, vomiting, fever, chills or urinary symptoms. No known tick bites. Her daughter noticed she hadn't moved from the nutritional health coach for a few days and wanted to take her to the ER yesterday but the patient refused. Today she gave in and went to [facility] emergency room where it was noted her high sensitivity troponin was elevated at 207 without any ischemic EKG changes. She denies any current chest pain or pressure but on further questioning admits to some chest pressure on exertion but reports not really paying attention to it and it is relieved with rest without any recent worsening and ongoing for possibly 2 months although she is not clear with this history. Other abnormalities include WBC 13.38 (Neutrophils 10.08) without and symptoms/signs of infection therefore no antibiotics were given. INR 1.59. BUN 25. Cr 1.35. She was given 1L NSS bolus and ondansetron and given lack of cardiology coverage at [facility] she opted to be transferred to [facility] and was accepted earlier today. Allergies Allergy/AdvReac Type Severity Reaction Status Date / Time No Known Drug Allergies Allergy Verified 04/11/24 13:08 ICE CREAM AdvReac Intermediate Gastrointestinal Uncoded 04/11/24 13:08 Upset Home Medications Medication Instructions Recorded Confirmed Type apixaban 2.5 mg tablet (Eliquis) 2.5 mg PO BID #60 tabs 01/31/20 06/19/24 Rx amlodipine 2.5 mg tablet 2.5 mg PO DAILY 05/19/21 06/19/24 History levalbuterol tartrate 45 2 inh inhalation Q4H PRN Shortness 12/08/21 06/19/24 Rx mcg/actuation aerosol inhaler Of Breath #15 grams (Xopenex HFA) Saccharomyces boulardii 250 mg 250 mg PO QAM 10/21/22 06/19/24 History capsule (Florastor) Flutter Valve #1 ea 12/17/22 04/11/24 Rx levocetirizine 5 mg tablet 5 mg PO DAILY PRN allergy symptoms 12/17/22 06/19/24 Rx #30 tabs levothyroxine 50 mcg tablet 50 mcg PO QAM #90 tabs 09/01/23 06/19/24 Rx duloxetine 30 mg capsule,delayed 30 mg PO DAILY #30 caps 12/17/23 06/19/24 Rx release mometasone-formoterol HFA 100 2 inh inhalation BID #13 grams 01/03/24 06/19/24 Rx mcg-5 mcg/actuation aerosol inhaler (Dulera) diclofenac sodium 1 % topical gel 2 g topical QID PRN pain, moderate 01/10/24 06/19/24 Rx #100 grams montelukast 10 mg tablet 10 mg PO QPM #30 tabs 02/15/24 06/19/24 Rx ipratropium 0.5 mg-albuterol 3 mg 3 ml inhalation Q6H PRN wheezing 04/13/24 06/19/24 Rx (2.5 mg base)/3 mL nebulization #180 mL soln hydrocortisone 1 % topical cream 1 applic topical TID PRN skin 05/31/24 06/19/24 Rx (Anti-Itch (hydrocortisone)) irritation #28.4 grams tizanidine 2 mg capsule 2 mg PO HS muscle spasticity #90 05/31/24 06/19/24 Rx caps metoprolol succinate 25 mg 12.5 mg (1/2 x 25 mg) PO DAILY #45 06/06/24 06/19/24 Rx tablet,extended release 24 hr tabs Past Med/Surg History Problem List (Updated 06/20/24 @ 06:21 by Bijan Matias MD) Elevated troponin Leukocytosis Lethargy Risk for falls Foul smelling urine Noncompliance with medication regimen Edema of lower extremity Elevated blood pressure reading Cerumen impaction Wrist pain, right Cellulitis of right lower extremity (Acute) Leg edema, right (~05/11/24) Right leg pain HX: breast cancer s/p right breast mastectomy Acute bronchitis Cough Asthma Allergic rhinitis Hematuria Exertional shortness of breath Chronic back pain Bladder pain (Chronic) Borderline hypertension (Chronic) anxiety related Bladder cancer (Chronic) Paroxysmal atrial fibrillation (Chronic) Spinal stenosis, lumbar region with neurogenic claudication (Chronic) Hypothyroidism (Chronic) Medical History UTI symptoms Acute kidney injury Syncope Urinary tract infection Postoperative anemia due to acute blood loss Postoperative atrial fibrillation Acute blood loss anemia Asthma Spinal stenosis Macular degeneration of both eyes Hx of migraines Borderline hyperlipidemia Hx of cancer of uterus Hx of bladder cancer Chronic obstructive pulmonary disease Osteoarthritis GERD (gastroesophageal reflux disease) Hypothyroidism Asthma Surgical History Hx of decompressive lumbar laminectomy Hx of cataract surgery History of section History of mastectomy History of total abdominal hysterectomy and bilateral salpingo-oophorectomy History of bladder surgery History of colonoscopy History of appendectomy History of tooth extraction History of tonsillectomy Family History Sister Breast cancer Irritable bowel syndrome Brother Alzheimer disease Brain cancer Father COPD (chronic obstructive pulmonary disease) Mother Heart disease Denies family history of Ovarian cancer Prostate cancer Myocardial infarction Colorectal cancer Social History Smoking Status: Never smoker Second Hand Exposure: No; Do You Dip or Chew Tobacco: No; Hx Alcohol Use: Yes Alcohol type: wine Alcohol Intake Frequency: Monthly or Less Alcohol Intake Frequency Comment: rarely Hx Substance Use: No Preferred Language: Polish Communication Ability: Effective Visual Impairment: Limited Hearing Ability: Use of Hearing Aid Guest History Clerk Required: No Beliefs That Will Affect Care: None marital status: Current Living Situation: Alone Current Living Situation Comment: patient lives alone, in jail. current occupational status: retired How many Children do You have: 2 Other Information That Helps Us Care for You: No Feels Safe at Home: Yes Safety Concerns: Feels Safe At This Time Childhood Exposure to Second-Hand Smoke: Yes Diet: low carbohydrate and low salt caffeine: Yes (coffee ) Dental Care, Regularly: Yes Physical Activity Frequency: Does not Exercise Seatbelt Use: always Sunscreen Use: Yes (sometimes) Assistive Devices: Cane and Hearing Aid - Bilateral Review of Systems Review of Systems: All systems reviewed & are unremarkable except as noted in HPI & below Physical Exam Constitutional: WD/WN, vitals as above Eyes: PERRL, conjunctivae normal, anicteric sclerae ENMT: external ear and nose normal, oropharynx normal Respiratory: normal respiratory effort, lungs clear to auscultation Cardiovascular: RRR, no murmur, no edema Gastrointestinal (Abdomen): normal bowel sounds, soft, nontender, no hepatosplenomegaly Musculoskeletal: no cyanosis or clubbing, extremities motor strength 5/5 Skin: bilateral lower extremity excoriation without overt cellulitis Neurologic: moves all extremities and awake; no focal motor deficits and not confused Psychiatric: A+Ox3, euthymic affect Genitourinary: + CVA tenderness (mild on right) Results & Data Results & Data Vital Signs (Past 12 Hours) Pending Laboratory Results Abnormal lab results 06/19/24 06/19/24 Range/Units 21:15 23:45 WBC 12.90 H (4.8-10.8) K/ul RBC 4.13 L (4.20-5.40) M/uL Hgb 11.4 L (12.0-16.0) g/dl Hct 35.1 L (37.0-47.0) % RDW Coeff of [place]andy 14.7 H (11.5-14.5) % Neut # (Auto) 9.26 H (1.40-6.50) K/uL [place] # (Auto) 1.33 H (0.11-0.59) K/uL BUN 24 H (6-23) mg/dl BUN/Creatinine Ratio 25.3 H (10-20) Glucose 125 H (70-99(Fasting)) mg/dl Troponin I High Sens 280.2 H* (0-14) pg/ml TSH 8.506 H (0.300-4.500) uIu/ml Urine Protein Trace H (Negative) Urine Ketones Trace H (Negative) Urine Blood 2+ H (Negative) Ur Leukocyte Esterase 1+ H (Negative) Urine WBC (Auto) 6-10 H (0-5) /hpf Urine RBC (Auto) >20 H (0-2) /hpf U Hyaline Cast (Auto) 3-5 H (0-2) /lpf U Epithel Cells (Auto) 3-5 H (0-2) /hpf Diagnostic Findings CXR - no acute cardiopulmonary abnormality per my read, official radiology read pending Medications Administered ER Medications Given: Per verbal report NSS 1L bolus and Ondansetron 4mg IV ECG Rate (beats per minute): 87 Rhythm: normal sinus Findings: no acute ischemic change Comparison ECG Date: from (June 07, 2021) Change: no significant change Code Status & VTE Plan Code Status Full VTE Prophylaxis Plan VTE Prophylaxis will be ordered: Yes PG Care Time/CCT Total # of Minutes Spent Total Time Spent with Patient: Total time spent is greater than 50% in coordination of care (as documented) at patient's floor/unit and/or counseling patient: Coding Level of Care Code 80883 INT INP/OBS CARE 3/75MIN Diagnoses Lethargy R53.83 Elevated troponin R79.89 Paroxysmal atrial fibrillation I48.0 Bandemia D72.825 Leukocytosis type: bandemia (4) Leukocytosis Leukocytosis type: bandemia Qualified Code(s): D72.825 - Bandemia
[2024-06-19 21:33] LABS: Basophils # (auto) 0.07 K/uL (0.00-0.20); Basophils % (auto) 0.5 %; Eosinophils # (auto) 0.34 K/uL (0.00-0.50); Eosinophils % (auto) 2.6 %; Hematocrit (blood only) 35.1 % (37.0-47.0); Hemoglobin 11.4 g/dl (12.0-16.0); Immature Granulocytes # (auto) 0.06 K/uL (0.01-0.20); Immature Granulocytes % (auto) 0.5 %; Lymphocytes # (auto) 1.84 K/uL (1.20-3.40); Lymphocytes % (auto) 14.3 %; Mean Corpuscular Hemoglobin 27.6 pg (25.0-34.0); Mean Corpuscular Hgb Conc 32.5 g/dL (32.0-36.0); Monocytes # (auto) 1.33 K/uL (0.11-0.59); Monocytes % (auto) 10.3 %; Neutrophils # (auto) 9.26 K/uL (1.40-6.50); Neutrophils % (auto) 71.8 %; Platelet Count 311 K/uL (130-400); RDW Coefficient of Variation 14.7 % (11.5-14.5); RDW Standard Deviation 45.4 fL (36.4-46.3); Red Blood Count 4.13 M/uL (4.20-5.40)
[2024-06-19 21:45] LABS: Alanine Aminotransferase 10 U/L (7-52); Albumin Level 3.6 gm/dl (3.4-5.0); Alkaline Phosphatase 79 U/L (34-104); Anion Gap 6 (3-11); Aspartate Aminotransferase 16 U/L (13-39); BUN Creatinine Ratio 25.3 (10-20); Bilirubin,Total 0.6 mg/dl (0.2-1.0); Blood Urea Nitrogen 24 mg/dl (6-23); Calcium 9.5 mg/dl (8.6-10.3); Carbon Dioxide 28 mmol/L (21-32); Chloride 102 mmol/L (98-107); Globulin 3.5 gm/dl (2.5-4.0); Glucose 125 mg/dl (70-99(Fasting)); Magnesium 1.9 mg/dl (1.7-2.4); Potassium 3.8 mmol/L (3.5-5.1); Sodium 136 mmol/L (136-145); Total Protein 7.1 gm/dl (6.0-8.3)
[2024-06-19 21:57] LABS: Troponin I High Sensitivity 280.2 pg/ml (0-14)
[2024-06-19 22:00] LABS: Thyroid Stimulating Hormone 8.506 uIu/ml (0.300-4.500)
[2024-06-19 22:10] LABS: INR 1.1 (0.9-1.1); Partial Thromboplastin Ratio 1.1; Partial Thromboplastin Time 30 Seconds (21-31); Prothrombin Time 11.7 Seconds (9.0-12.0)
[2024-06-19] MEDS ORDERED: HYDROCORTISONE 1% CRM 30 GM TUBE EXT PRN (22:57)
[2024-06-19] MEDS: INFLUENZA VACC TS2024-25(65y+)/PF (IIV3) 0.5mL Syr IM ONE (23:46)
[2024-06-19] MEDS: MONTELUKAST SODIUM 10 MG TABLET PO SCH (23:50)
[2024-06-19] MEDS: tiZANidine HCL 4 MG TABLET PO SCH (23:51)
[2024-06-19] MEDS: APIXABAN 2.5 MG TAB PO SCH (23:52)
[2024-06-19] MEDS: ASPIRIN 81 MG CHEW PO STA (23:58)
[2024-06-19] MEDS: MELATONIN 3 MG TAB PO PRN (23:58)
[2024-06-20 00:03] LABS: Appearance Urine Clear (Clear); Bacteria Urine Automated None Seen (None Seen); Bilirubin Urine Negative (Negative); Blood Urine 2+ (Negative); Color Urine Yellow; Glucose Urine UA Negative (Negative); Ketones Urine Trace (Negative); Leukocyte Esterase Urine 1+ (Negative); Nitrite Urine Negative (Negative); Protein Urine Trace (Negative); RBC Urine Automated >20 /hpf (0-2); Urobilinogen Urine Negative (Negative)
--- NOTE | 2024-06-20 01:54 | XRay Report ---
Exam(s): XR CXR 1 VIEW EXAM: XR Chest, 1 View CLINICAL HISTORY: Reason for exam: generalized weakness ?PNA. TECHNIQUE: Frontal view of the chest. COMPARISON: Chest radiograph On 12/08/2021 FINDINGS: Hardware: None. Lungs/pleura: Mild atelectasis in the left midlung. No focal consolidation. No pleural effusion or pneumothorax. Heart/mediastinum: Atherosclerotic changes of the aorta. No cardiomegaly. Soft tissues: Unremarkable. Bones: No acute fracture. Upper abdomen: Normal. IMPRESSION: No acute disease identified. Electronically signed by: Teresa Gold M.D. 06/20/24 01:53 AM
[2024-06-20] MEDS: LEVOTHYROXINE SODIUM 50 MCG TABLET PO SCH (06:00)
[2024-06-20 07:54] LABS: Basophils # (auto) 0.07 K/uL (0.00-0.20); Basophils % (auto) 0.6 %; Eosinophils # (auto) 0.41 K/uL (0.00-0.50); Eosinophils % (auto) 3.4 %; Hematocrit (blood only) 31.2 % (37.0-47.0); Immature Granulocytes # (auto) 0.07 K/uL (0.01-0.20); Immature Granulocytes % (auto) 0.6 %; Lymphocytes # (auto) 1.69 K/uL (1.20-3.40); Lymphocytes % (auto) 13.8 %; Mean Corpuscular Hemoglobin 27.9 pg (25.0-34.0); Mean Corpuscular Hgb Conc 32.1 g/dL (32.0-36.0); Mean Corpuscular Volume 86.9 fL (80.0-100.0); Mean Platelet Volume 10.3 fL (9.4-12.4); Monocytes # (auto) 1.23 K/uL (0.11-0.59); Monocytes % (auto) 10.1 %; Neutrophils # (auto) 8.74 K/uL (1.40-6.50); Neutrophils % (auto) 71.5 %; Platelet Count 295 K/uL (130-400); RDW Coefficient of Variation 14.7 % (11.5-14.5); RDW Standard Deviation 47.3 fL (36.4-46.3); Red Blood Count 3.59 M/uL (4.20-5.40); White Blood Count 12.21 K/ul (4.8-10.8)
[2024-06-20 08:13] LABS: BUN Creatinine Ratio 24.8 (10-20); C Reactive Protein 8.22 mg/dl (0-0.5); Calcium 9.3 mg/dl (8.6-10.3); Creatinine Clr Calc Pharmacy 33.6 ml/min; Potassium 4.4 mmol/L (3.5-5.1)
--- NOTE | 2024-06-20 08:23 | Electrocardiogram Report ---
Test Reason : Blood Pressure : */* mmHG Vent. Rate : 87 BPM Atrial Rate : 87 BPM P-R Int : 208 ms QRS Dur : 86 ms QT Int : 352 ms P-R-T Axes : 65 5 39 degrees QTcB Int : 423 ms Normal sinus rhythm Normal ECG When compared with ECG of 07-Jun-2021 23:15, No significant change was found Confirmed by Jasson España ([id number]) on 06/20/2024 8:23:38 AM Referred By: Bijan Matias Confirmed By: Jasson España
[2024-06-20] MEDS: amLODIPine BESYLATE 5 MG TAB PO SCH (08:25)
[2024-06-20] MEDS: SACCHAROMYCES BOULARDII 250 MG CAP PO SCH (08:26)
[2024-06-20] MEDS: FLUTICASONE/VILANTEROL 100/25MCG 14 PUFFS/INHALER INH SCH (08:26)
[2024-06-20] MEDS: DULoxetine HCL 30 MG CAP PO SCH (08:26)
[2024-06-20] MEDS: ASPIRIN 81 MG ECTAB PO SCH (08:27)
[2024-06-20] MEDS: METOPROLOL SUCC 25MG EXT REL TAB PO SCH (08:27)
--- NOTE | 2024-06-20 09:13 | Hospitalist Progress Note ---
Date of Service June 20, 2024 Assessment & Plan (1) Lethargy: Plan: Rehana Smallwood is an 89-year-old female with a PMHx of hypothyroidism and Afib who first presented to the [facility] with generalized weakness. She was transferred to [facility] due to lack of cardiology coverage at [facility]. - EKG showed normal sinus rhythm with no evidence of acute cardiac event, physical exam was unremarkable for cardiac etiology - No neurological symptoms - Labs show evidence for dehydration, goal of drinking 60 ounces per day - PT/OT while inpatient (2) Leukocytosis: Plan: - WBC 12.21 and neutrophils 8.74 this morning - UA unremarkable, urine culture pending - No s/s of URI, CXR negative - Excoriations noted on the lower extremities, but healing and patient had Keflex in May - Blood culture pending - Neutropenia most likely due to hemoconcentration (3) Elevated troponin: Plan: - Troponin down from 280 06/19 to 133 this morning - Unremarkable EKG - Unremarkable echocardiogram - On telemetry for further monitoring - Exertional chest pain noted on intake note, but patient denies this morning (unsure of quality of history from patient) - Most likely not a cause of current lethary symptoms (4) Asthma: Plan: - Chronic, controlled - Continue maintenance inhalers and montelukast, no wheezing to suggest exacerbation (5) Chronic back pain: Plan: - Chronic, hx of spinal stenosis - PT/OT (6) Borderline hypertension: Plan: - Chronic, controlled - Continue amlodipine (7) Anxiety: Plan: - Chronic, controlled - Continue duloxetine (8) Hypothyroidism: Plan: - TSH elevated at 8.5, up from 4.5 in April in context of hx hypothyroidism, no recent changes in medication - Continue levothyroxine at current dose for now, manage in outpatient (9) Cognitive decline: Plan: - Chronic, has not been addressed previously - PT/OT to evaluate patient's ability to perform ADLs Plan VTE Prophylaxis - Eliquis Diet - heart healthy Disposition - PCU Admission and Anticipated Discharge Date Admission Date: June 19, 2024 Supervising Physician Co-Signing Physician Notes I personally examined the patient and verified all valenzuela points of history and exam, discussed case, and agree with decision making with Dr Grace and Jo Ann Emmanuel MS2 doesn't feel well. hard to describe but on repeated questioning and a degree of directed questioning - seems to hurt all over but back pain dominant. in discussion with pt and dtr - pt struggles to care for self at home, doesn't eat/drink well. at SNF. dtr also notes pt getting more forgetful over the last ~year or so vitals noted nad heent nc at mmm breathing unlabored no accessory muscles good effort repeats herself often and looks surprised at the same statements (such as my supposition that a lot of what's going on with her acutely is due to dehydration) despite saying it several times. HPI changes somewhat as she retells her story weakness/lethargy - dehydration from poor PO intake; question ?mild viral illness (diffuse body aches, low grade CRP elevation) although dehydration and nonspecific CRP could also explain the story. encourage PO fluids, follow clinically. KELSEY at [facility] -> improvement but still prerenal #'s here would fit with dehydration as well. serial exams to ensure no occult infections like a tick borne process but overalll clinical picture does not fit with this at this time elevated troponin - demand ischemia due to above. ekg nonacute, echo better than last on record, troponin dropped quickly elevated TSH - hard to tell how much from med nonadherence, and how much is euthyroid sick syndrome. keep on synthroid, f/u TSH ~4wks afib - rate controlled, anticoagulated. 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 She was transferred to [facility] due to lack of cardiology coverage at [facility]. - 3 days of lethargy, didn't want to get up and napped most of the days - Daughter called ambulance on 3rd day - Reports no dizziness, some lightheadedness with standing - Needed walker/cane more than usual lately - No recent sick contacts - No recent UTI, no urinary symptoms - Reports that she has not been eating a lot but has been drinking water - At baseline, patient lives alone and prepares her own meals - Has asthma, takes inhaler as needed, no SOB or URI symptoms but clearing throat frequently, no hx of COVID infection, no smoking hx - Hx of hypothyroidism, on levothyroxine, reports being compliant with med, no recent med changes - In the afternoon, the attending Dr. Yao was able to talk with the patient's daughter who endorsed some cognitive decline over the past couple of years which is affecting her ability to perform ADLs Review of Systems Review of Systems: All systems reviewed & are unremarkable except as noted in HPI & below Respiratory: No SOB Cardiovascular: Additional Comments: No chest pain, some palpitations Musculoskeletal: Chronic lower back pain Neurologic: No dizziness, some lightheadedness Physical Exam Constitutional: WD/WN, vitals as above Eyes: PERRL, conjunctivae normal, anicteric sclerae ENMT: external ear and nose normal, oropharynx normal Neck: trachea midline, no thyromegaly Respiratory: normal respiratory effort, lungs clear to auscultation Cardiovascular: RRR, no murmur, no edema Gastrointestinal (Abdomen): normal bowel sounds, soft, nontender, no hepatosplenomegaly Musculoskeletal: Surgical scar on lumbar back Psychiatric: Some difficulty with memory recall Results & Data Results & Data Vital Signs (Past 12 Hours) Vital Signs Temp Pulse Pulse Resp BP Pulse Ox O2 Del Method 06/20/24 07:51 36.4 C L 78 18 104/67 96 Room Air 06/20/24 07:49 Room Air 06/20/24 02:32 36.7 C 76 18 107/64 95 Room Air 06/20/24 01:08 87 06/19/24 22:54 37.5 C 89 20 156/71 H 96 Room Air 06/19/24 22:33 37.2 C 86 20 170/78 H 97 Room Air 06/19/24 22:04 Room Air 06/19/24 22:02 37.2 C 82 20 170/78 H 97 Room Air 06/19/24 21:58 91 H 06/19/24 20:49 85 Diagnostic Findings WBC: 06/19: 12.9 06/20: 12/2 Neutrophils: 06/19: 9.26 06/20: 8.74 Resident Activity Tracking Resident Involvement: Resident Care Provided Care Provided: Adult Hospital Medicine Resident Supervision Co-Signing Physician Notes I personally saw and examined Mrs. Smallwood and agree with plan of ANNELISE Diaz. She endorses fatigue , muscle pain and overall state of not feeling well since last couple of days. She is not able to do her daily stuffs and feel tired all the time. Denies any chest pain, SOB, Sore throat, flu symptoms, pain abdomen, burning urine, increased frequency, flank pain. She endorses back pain however nothing acute. No h/o recent trauma. She mention she was treated with skin infection recently. He denies fever, weight loss, loss of appetite. Daughter on bedside mentions that Mrs Smallwood is getting slowly weaker lately, she is not able to take care of herself. Daughter has to drive 30 miles everyday to do dishes for mom. She is not happy with her nutrition as well. She mentions she does not drink much fluids, drink few sodas. Vitals: Stable O/E: Seems oriented to TPP, not in acute distress. HENT: No lymph nodes , Thyroid not enlarged Chest : BL equal air entry, No added sound CVS: S1S2M0 PA: Soft Non tender, No RAT Neuro: Muscle power in BL UL and LL normal A &P: 1. Fatigue and Lethargy: - Likely sec to dehydration and poor intake. - WBC: Mildly elevated; Troponin : Mildly elevated - CMP/BMP: WNL - EKG/Echo: NAD - Lyme sero: -ve - ESR/CRP: WNL - Counselled for 60-80 ounces of fluids. - OT/PT 2. Cognition deficit - Likely progressive - Predisposing to poor intake 3. Elevated Troponin - Likely demanded ischemia - Trended down today. 4.Hypothyroidism - TSH: 8.5 - under levothy: 50 mcg once daily - ? Med non adherance, ? Sub- optimal control - F/U in 4 weeks 5. Afib: Rate controlled - Anticoagulation + metoprolol ongoing Dispo: - Eliquis/ Full Code/ PCU tele (2) Leukocytosis Leukocytosis type: bandemia Qualified Code(s): D72.825 - Bandemia
--- NOTE | 2024-06-20 09:56 | XCELERA ---
[id number] [id number]
[2024-06-20] MEDS: DICLOFENAC SOD 1% GEL 100 GM TUBE EXT PRN (12:30)
--- NOTE | 2024-06-20 15:41 | Billing Data ---
Date of Service June 20, 2024 Coding Level of Care Code 31104 SUB INP/OBS CARE MIN
[2024-06-21] MEDS: ACETAMINOPHEN 325 MG TAB PO PRN (03:12)
[2024-06-21 08:29] LABS: Albumin Globulin Ratio 1.1 (0.9-2); Albumin Level 3.2 gm/dl (3.4-5.0); Bilirubin,Total 0.6 mg/dl (0.2-1.0); Total Protein 6.2 gm/dl (6.0-8.3)
--- NOTE | 2024-06-21 09:37 | Hospitalist Progress Note ---
Date of Service June 21, 2024 Assessment & Plan (1) Lethargy: (2) Leukocytosis: (3) Elevated troponin: (4) Asthma: (5) Chronic back pain: (6) Borderline hypertension: (7) Anxiety: (8) Hypothyroidism: (9) Cognitive decline: Plan 89-year-old female with a PMHx of hypothyroidism and Afib who first presented to the [place] ER with generalized weakness. She was transferred to [facility] due to lack of cardiology coverage at [facility]. 1. Fatigue - Likely secondary to dehydration and poor nutritional status. - Labs: WBC trending down; 12k--->11k today - ESR: 19, CRP:8 ( repeat sent today) - EKG: NSR - No neurological symptoms - Advised for fluids intake least 60 ounces per day - PT/OT eval: 2. Leukocytosis: - One spike of fever 38 deg. Patient non toxic appearing. - WBC trending down - Repeat CRP and CMP awaiting - UA unremarkable, urine culture pending - No s/s of URI, CXR negative - Blood culture pending. 3. Elevated troponin: - Troponin trended down from 280--- > 133 - EKG/ echocardiogram: NAD - NSR on tele - Patient denies Exertional chest pain 4. Cognitive decline: - Chronic, has not been addressed previously - PT/OT to evaluate patient's ability to perform ADLs - MoCA score: 5.Hypothyroidism: - TSH: 8.5---< 4.5 in April, no recent changes in medication - TSH elevated in acute setting of illness; Repeat test in Outpatient. 6. Chronic issues: Asthma/ Chronic back pain/ Borderline hypertension/ Anxiety: Stable Plan VTE Prophylaxis - Eliquis Diet - heart healthy Disposition - PCU Admission and Anticipated Discharge Date Admission Date: June 19, 2024 Subjective Today morning Rehana says she is doing fine. She slept well, no issue with bowel and bladder. She denies cough, SOB, chest pain, burning urine, increased frequency or pain abdomen or any other site. It seems she does not remember things we discussed yesterday. Results & Data Results & Data Vital Signs (Past 12 Hours) Vital Signs Temp Pulse Pulse Resp BP Pulse Ox O2 Del Method 06/21/24 08:21 Room Air 06/21/24 07:37 36.8 C 61 18 133/69 97 Room Air 06/21/24 07:12 70 06/21/24 02:56 38.0 C H 85 18 107/72 92 Room Air 06/20/24 23:11 37.6 C H 80 16 151/78 H 96 Room Air 06/20/24 22:14 94 H Resident Activity Tracking Resident Involvement: Resident Care Provided Care Provided: Adult Hospital Medicine (2) Leukocytosis Leukocytosis type: bandemia Qualified Code(s): D72.825 - Bandemia
[2024-06-21 11:44] LABS: Basophils # (auto) 0.06 K/uL (0.00-0.20); Basophils % (auto) 0.5 %; Eosinophils # (auto) 0.53 K/uL (0.00-0.50); Eosinophils % (auto) 4.7 %; Hematocrit (blood only) 32.8 % (37.0-47.0); Hemoglobin 10.4 g/dl (12.0-16.0); Immature Granulocytes # (auto) 0.09 K/uL (0.01-0.20); Immature Granulocytes % (auto) 0.8 %; Lymphocytes # (auto) 2.17 K/uL (1.20-3.40); Lymphocytes % (auto) 19.2 %; Mean Corpuscular Hemoglobin 27.4 pg (25.0-34.0); Mean Corpuscular Hgb Conc 31.7 g/dL (32.0-36.0); Mean Corpuscular Volume 86.3 fL (80.0-100.0); Mean Platelet Volume 9.9 fL (9.4-12.4); Monocytes % (auto) 9.7 %; Neutrophils # (auto) 7.38 K/uL (1.40-6.50); Neutrophils % (auto) 65.1 %; Platelet Count 287 K/uL (130-400); RDW Coefficient of Variation 14.6 % (11.5-14.5); RDW Standard Deviation 45.9 fL (36.4-46.3); White Blood Count 11.33 K/ul (4.8-10.8)
[2024-06-21 12:06] LABS: Albumin Level 3.5 gm/dl (3.4-5.0); BUN Creatinine Ratio 20.9 (10-20); Bilirubin,Total 0.6 mg/dl (0.2-1.0); Calcium 9.8 mg/dl (8.6-10.3); Creatinine Clr Calc Pharmacy 39.6 ml/min; Globulin 3.4 gm/dl (2.5-4.0); Potassium 4.7 mmol/L (3.5-5.1); Total Protein 6.9 gm/dl (6.0-8.3)
--- NOTE | 2024-06-21 16:21 | Discharge Summary ---
Date of Service June 21, 2024 Admission HPI Per Admitting Provider Rehana Smallwood is an 89 year old female who presents as a direct admission from [facility] due to lethargy with an elevated troponin. She reports her only symptom being lethargy for the last 2-3 days with generalized weakness. No sinus pain, nasal congestion, sore throat, chest pain, shortness of breath, diarrhea, abdominal pain, nausea, vomiting, fever, chills or urinary symptoms. No known tick bites. 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 Today she gave in and went to [facility] emergency room where it was noted her high sensitivity troponin was elevated at 207 without any ischemic EKG changes. She denies any current chest pain or pressure but on further questioning admits to some chest pressure on exertion but reports not really paying attention to it and it is relieved with rest without any recent worsening and ongoing for possibly 2 months although she is not clear with this history. Other abnormalities include WBC 13.38 (Neutrophils 10.08) without and symptoms/signs of infection therefore no antibiotics were given. INR 1.59. BUN 25. Cr 1.35. She was given 1L NSS bolus and ondansetron and given lack of cardiology coverage at [facility] she opted to be transferred to [facility] and was accepted earlier today. Admission Exam Per Admitting Provider Constitutional: WD/WN, vitals as above Eyes: PERRL, conjunctivae normal, anicteric sclerae ENMT: external ear and nose normal, oropharynx normal Respiratory: normal respiratory effort, lungs clear to auscultation Cardiovascular: RRR, no murmur, no edema Gastrointestinal (Abdomen): normal bowel sounds, soft, nontender, no hepatosplenomegaly Musculoskeletal: no cyanosis or clubbing, extremities motor strength 5/5 Skin: bilateral lower extremity excoriation without overt cellulitis Neurologic: moves all extremities and awake; no focal motor deficits and not confused Psychiatric: A+Ox3, euthymic affect Genitourinary: + CVA tenderness (mild on right) Principal Diagnosis Non specific Fatigue Dementia Discharge Exam GC: Oriented to TPP, Fair looking. Not in distress. Cheerful looking ENT: Atraumatic, Normocephalic Repsi: BL equal air entry, No added sound. CVS: S1S2 M0, RR PA: SOft NT, Bowel sound + Neuro: No focal Deficit Discharge Data Allergies Allergy/AdvReac Type Severity Reaction Status Date / Time No Known Drug Allergies Allergy Verified 04/11/24 13:08 ICE CREAM AdvReac Intermediate Gastrointestinal Uncoded 04/11/24 13:08 Upset Hospital Course (1) Lethargy: (2) Leukocytosis: (3) Elevated troponin: (4) Asthma: (5) Chronic back pain: (6) Borderline hypertension: (7) Anxiety: (8) Hypothyroidism: (9) Cognitive decline: Plan 89-year-old female with a PMHx of hypothyroidism and Afib who first presented to the [facility] ER with generalized weakness. She was transferred to [facility] due to lack of cardiology coverage at [facility]. 1. Fatigue - Likely secondary to dehydration and poor nutritional status. - Labs: WBC trending down; 12k--->11k today - ESR: 19, CRP:8 ( repeat sent today) - EKG: NSR - No neurological symptoms - Advised for fluids intake least 60 ounces per day - PT/OT eval: Patient is ready to go home. 2. Leukocytosis: - One spike of fever 38 deg. Patient non toxic appearing. - WBC trending down - UA unremarkable, Urine RE: pinpoint growth - No s/s of URI, CXR negative - Blood culture: No growth. 3. Elevated troponin: - Troponin trended down from 280--- > 133 - EKG/ echocardiogram: NAD - NSR on tele - Patient denies Exertional chest pain 4. Cognitive decline: - Chronic, has not been addressed previously - PT/OT to evaluate patient's ability to perform ADLs 5.Hypothyroidism: - TSH: 8.5---< 4.5 in April, no recent changes in medication - TSH elevated in acute setting of illness; Repeat test in Outpatient. 6. Chronic issues: Asthma/ Chronic back pain/ Borderline hypertension/ Anxiety: Stable Total Time Total Time Spent Total Time Spent (In Minutes): See attending's attestation Discharge Plan Discharge Items Patient Disposition: Home - Self-Care Reason For Visit: NSTEMI, WEAKNESS Discharge Diagnosis: Fatigue Activity: Resume your previous activity Non-emergency contact: Primary Care Provider Call non-emergency contact if: you have any medication questions, your pain is concerning for you and your temperature is above 101.5 Follow-up/Referrals: Elvira Causey DO [Primary Care Provider] - Diet: Regular Addtl Attending Provider Instructions: You were admitted to the hospital for fatigue. You were treated with fluids and got better. A discharge summary will be sent to your primary care physician to ensure continuity of care. Please bring this discharge summary with you to your next office appointment so that your provider can review it at that time. Follow-up appointments: * Make a follow-up appointment with your PCP within the next week. It is very important that you follow up with them shortly after discharge from the hospital. * Keep all your follow-up appointments as already scheduled. If you cannot make an appointment, notify your provider. Medications: Your medication list has been reviewed and reconciled upon discharge to ensure accuracy and continuity of care. An updated list of all your medications is included with your hospital discharge paperwork. Please review this list closely, and make note of any changes. * No medication changes were made during your visit. * If you have any issues with medications, please call [phone] and ask to leave a message for Dr. Bia Grace. * Take your medications as instructed; do not skip a dose of your medicines. Make sure all of your doctors know every medicine you are taking (including [id number] medicines, vitamins, and supplements). Call your primary care provider before taking any new medicines (including over- the-counter medicines, vitamins, and supplements), because some of these may interact with your current medications, or may make your symptoms worse. Tell your primary care provider if you cannot afford your medications. CONTACT YOUR PRIMARY CARE PROVIDER if you experience any of the following: * Worsening of symptoms * Fever, chills, or fatigue * Difficulty following your treatment plan, or difficulty taking medications CALL 911 OR GO TO THE EMERGENCY DEPARTMENT if you experience any of the following: * Sudden, severe abdominal pain or nausea/vomiting * Severe chest pain, or chest pain that radiates (moves) to your jaw or arm * Sudden, severe shortness of breath or difficulty breathing Thank you for allowing us to participate in your care. Pending Studies at Discharge: No Stand-Alone Forms: [employer], Smoking Cessation Medications and DC Order Prescriptions: Continued levothyroxine 50 mcg tablet 50 mcg PO QAM Qty: 90 2RF montelukast 10 mg tablet 10 mg PO QPM Qty: 30 11RF ipratropium-albuterol 0.5 mg-3 mg(2.5 mg base)/3 mL solution for nebulization 3 ml inhalation Q6H PRN (Reason: wheezing) Qty: 180 5RF hydrocortisone [Anti-Itch (HC)] 1 % cream 1 applic topical TID PRN (Reason: skin irritation) Qty: 28.4 1RF tizanidine 2 mg capsule 2 mg PO HS Qty: 90 3RF metoprolol succinate 25 mg tablet extended release 24 hr 12.5 mg PO DAILY Qty: 45 2RF Hold Instructions: check with [facility] cardiology levocetirizine 5 mg tablet 5 mg PO DAILY PRN (Reason: allergy symptoms) Qty: 30 3RF Rx Instructions: Take daily for 10 days then PRN (DME) Flutter Valve Device See Rx Instructions .MEDSUPPLY Qty: 1 0RF Rx Instructions: Use it every 6 hours when awake. Dulera 100-5 mcg/actuation HFA aerosol inhaler 2 inh inhalation BID Qty: 13 12RF levalbuterol tartrate [Xopenex HFA] 45 mcg/actuation HFA aerosol inhaler 2 inh INHALATION Q4H PRN (Reason: Shortness Of Breath) Qty: 15 4RF duloxetine 30 mg capsule,delayed release(DR/EC) 30 mg PO DAILY Qty: 30 5RF diclofenac sodium 1 % gel 2 g topical QID PRN (Reason: pain, moderate) Qty: 100 2RF Eliquis 2.5 mg Tablet 2.5 mg PO BID Qty: 60 0RF Saccharomyces boulardii [Florastor] 250 mg capsule 250 mg PO QAM Rx Instructions: swallow whole amlodipine 2.5 mg tablet 2.5 mg PO DAILY Admission Data Admit Date/Time: 06/19/24 20:43 Attending Provider: Brendan Yao Admit Provider: Bijan Matias Primary Care Provider: Elvira Causey Resident Activity Tracking Resident Involvement: Resident Care Provided Care Provided: Adult Hospital Medicine
--- NOTE | 2024-06-21 17:01 | Hospitalist Progress Note ---
Date of Service June 21, 2024 Assessment & Plan (1) Lethargy: (2) Leukocytosis: (3) Elevated troponin: (4) Asthma: (5) Chronic back pain: (6) Borderline hypertension: (7) Anxiety: (8) Hypothyroidism: (9) Cognitive decline: Plan 89-year-old female with a PMHx of hypothyroidism and Afib who first presented to the [place] ER with generalized weakness. She was transferred to [facility] due to lack of cardiology coverage at [place]. 1. Fatigue - Likely secondary to dehydration and poor nutritional status. - Labs: WBC trending down; 12k--->11k today - ESR: 19, CRP:8 ( repeat sent today) - EKG: NSR - No neurological symptoms - Advised for fluids intake least 60 ounces per day - PT/OT eval: Patient is ready to go home. 2. Leukocytosis: - One spike of fever 38 deg yesterday. Patient non toxic appearing. - WBC trending down - UA unremarkable, Urine RE: pinpoint growth - No s/s of URI, CXR negative - Blood culture: No growth. 3. Elevated troponin: - Troponin trended down from 280--- > 133 - EKG/ echocardiogram: NAD - NSR on tele - Patient denies Exertional chest pain 4. Cognitive decline: - Chronic, has not been addressed previously - PT/OT to evaluate patient's ability to perform ADLs 5.Hypothyroidism: - TSH: 8.5---< 4.5 in April, no recent changes in medication - TSH elevated in acute setting of illness; Repeat test in Outpatient. 6. Chronic issues: Asthma/ Chronic back pain/ Borderline hypertension/ Anxiety: Stable Dispo: VTE Prophylaxis - Eliquis Diet - heart healthy Disposition - admit to PCU OT/PT, Case management on board: Can go home Admission and Anticipated Discharge Date Admission Date: June 19, 2024 Supervising Physician Co-Signing Physician Notes I personally examined the patient and verified all valenzuela points of history and exam, discussed case, and agree with decision making with Dr Grace feels ok but also hard to get much HPI because she only talks about going home. d/w pt and dtr. discussed low grade fever she didn't really notice and denies focal sx. vitals noted nad heent nc at mmm breathing unlabored no accessory muscles good effort weakness/lethargy - dehydration from poor PO intake; question ?mild viral illness (diffuse body aches, low grade CRP elevation, low grade temp) although dehydration and nonspecific reason for elevation of CRP could also explain the story. encourage PO fluids, follow clinically. KELSEY at [place] [facility] -> improvement but still prerenal #'s here would fit with dehydration as well. serial exams to ensure no occult infections like a tick borne process but overall clinical picture does not fit with this at this time elevated troponin - demand ischemia due to above. ekg nonacute, echo better than last on record, troponin dropped quickly elevated TSH - hard to tell how much from med nonadherence, and how much is euthyroid sick syndrome. keep on synthroid, f/u TSH ~4wks afib - rate controlled, anticoagulated. otherwise as above PT/OT eval and treat, stable for home and appears to have capacity - at the same time, d/w pt quite frankly my concerns (loudly echoed by dtr) of pt not doing well taking care of herself and that she would likely be better off in care facility - but ultimately decision is hers. Subjective Today morning she is doing fine. She said she feels better. Slept baseline, normal bowel and bladder. No chest pain, fever, SOB, cough, Burning urine, increased frequency, pain abdomen. She wants to get discharged soon. Review of Systems Review of Systems: As per HPI Physical Exam Physical Exam: Constitutional: Well appearing, No acute distress, PILCCOD: Negative HEENT: Atraumatic, Normocephalic, No conjunctival injection CVS: S1 S2 no murmur, Regular Rhythm, no LE edema Respiratory: BL equal air entry with NVBS. No rhonchi, wheezes, or crackles. No increased work of breathing GI: Soft, Nondistended, Nontender, Normal Bowel sounds + MSK: No gross deformities noted Skin: Warm, Dry, No rashes Neuro: Alert, No Focal deficit except baseline hearing deficit Psych: Cooperative on exam Results & Data Results & Data Vital Signs (Past 12 Hours) Vital Signs Temp Pulse Pulse Resp BP Pulse Ox O2 Del Method 06/21/24 15:33 78 06/21/24 15:19 36.6 C 76 18 132/72 96 Room Air 06/21/24 11:28 36.6 C 69 18 146/77 H 97 Room Air 06/21/24 08:21 Room Air 06/21/24 07:37 36.8 C 61 18 133/69 97 Room Air 06/21/24 07:12 70 Resident Activity Tracking Resident Involvement: Resident Care Provided Care Provided: Adult Hospital Medicine (2) Leukocytosis Leukocytosis type: bandemia Qualified Code(s): D72.825 - Bandemia
--- NOTE | 2024-06-21 17:48 | Billing Data ---
Date of Service June 21, 2024 Coding Level of Care Code 17282 SUB INP/OBS CARE MIN
[2024-06-21 18:07] LABS: C Reactive Protein 6.79 mg/dl (0-0.5)
[2024-06-22 06:39] LABS: Basophils # (auto) 0.07 K/uL (0.00-0.20); Basophils % (auto) 0.9 %; Eosinophils # (auto) 0.67 K/uL (0.00-0.50); Eosinophils % (auto) 8.8 %; Hematocrit (blood only) 31.1 % (37.0-47.0); Hemoglobin 10.1 g/dl (12.0-16.0); Immature Granulocytes # (auto) 0.08 K/uL (0.01-0.20); Lymphocytes # (auto) 1.66 K/uL (1.20-3.40); Lymphocytes % (auto) 21.8 %; Mean Corpuscular Hemoglobin 27.7 pg (25.0-34.0); Mean Corpuscular Hgb Conc 32.5 g/dL (32.0-36.0); Mean Corpuscular Volume 85.2 fL (80.0-100.0); Mean Platelet Volume 10.2 fL (9.4-12.4); Monocytes # (auto) 0.65 K/uL (0.11-0.59); Monocytes % (auto) 8.5 %; Platelet Count 294 K/uL (130-400); RDW Coefficient of Variation 14.3 % (11.5-14.5); RDW Standard Deviation 44.2 fL (36.4-46.3); Red Blood Count 3.65 M/uL (4.20-5.40); White Blood Count 7.63 K/ul (4.8-10.8)
[2024-06-22 07:13] VITALS: RESP 18; TEMP 97.7; O2SAT 96
[2024-06-22 07:58] VITALS: BP 185/77
--- NOTE | 2024-06-22 09:55 | Discharge Summary ---
Date of Service June 22, 2024 Admission HPI Per Admitting Provider Rehana Smallwood is an 89 year old female who presents as a direct admission from [place] ER due to lethargy with an elevated troponin. She reports her only symptom being lethargy for the last 2-3 days with generalized weakness. No sinus pain, nasal congestion, sore throat, chest pain, shortness of breath, diarrhea, abdominal pain, nausea, vomiting, fever, chills or urinary symptoms. No known tick bites. Her daughter noticed she hadn't moved from the [employer] [place] for a few days and wanted to take her to the ER yesterday but the patient refused. Today she gave in and went to [place] emergency room where it was noted her high sensitivity troponin was elevated at 207 without any ischemic EKG changes. She denies any current chest pain or pressure but on further questioning admits to some chest pressure on exertion but reports not really paying attention to it and it is relieved with rest without any recent worsening and ongoing for possibly 2 months although she is not clear with this history. Other abnormalities include WBC 13.38 (Neutrophils 10.08) without and symptoms/signs of infection therefore no antibiotics were given. INR 1.59. BUN 25. Cr 1.35. She was given 1L NSS bolus and ondansetron and given lack of cardiology coverage at [place] she opted to be transferred to [facility] and was accepted earlier today. Admission Exam Per Admitting Provider Constitutional: WD/WN, vitals as above Eyes: PERRL, conjunctivae normal, anicteric sclerae ENMT: external ear and nose normal, oropharynx normal Respiratory: normal respiratory effort, lungs clear to auscultation Cardiovascular: RRR, no murmur, no edema Gastrointestinal (Abdomen): normal bowel sounds, soft, nontender, no hepatosplenomegaly Musculoskeletal: no cyanosis or clubbing, extremities motor strength 5/5 Skin: bilateral lower extremity excoriation without overt cellulitis Neurologic: moves all extremities and awake; no focal motor deficits and not confused Psychiatric: A+Ox3, euthymic affect Genitourinary: + CVA tenderness (mild on right) Principal Diagnosis Fatigue secondary to dehydration Dementia Discharge Exam Constitutional: Well appearing, No acute distress, PILCCOD: Negative HEENT: Atraumatic, Normocephalic, No conjunctival injection CVS: S1 S2 no murmur, Regular Rhythm, no LE edema Respiratory: BL equal air entry with NVBS. No rhonchi, wheezes, or crackles. No increased work of breathing GI: Soft, Nondistended, Nontender, Normal Bowel sounds + MSK: No gross deformities noted Skin: Warm, Dry, No rashes Neuro: Alert, No Focal deficit except baseline hearing deficit Psych: Cooperative on exam Discharge Data Allergies Allergy/AdvReac Type Severity Reaction Status Date / Time No Known Drug Allergies Allergy Verified 04/11/24 13:08 ICE CREAM AdvReac Intermediate Gastrointestinal Uncoded 04/11/24 13:08 Upset Hospital Course (1) Lethargy: (2) Leukocytosis: (3) Elevated troponin: (4) Asthma: (5) Chronic back pain: (6) Borderline hypertension: (7) Anxiety: (8) Hypothyroidism: (9) Cognitive decline: Plan 89-year-old female with a PMHx of hypothyroidism and Afib who first presented to the [place] ER with generalized weakness. She was transferred to [facility] due to lack of cardiology coverage at [place]. 1. Fatigue - Likely secondary to dehydration and poor nutritional status. - Labs: WBC trending down; 12k--->11k today - Advised for fluids intake least 60 ounces per day - PT/OT eval: Patient is ready to go home. 2. Leukocytosis: - Improved on DC - UA unremarkable, Urine RE: pinpoint growth - Blood culture: No growth. 3. Elevated troponin: - Likely demanded ischemia - Troponin trended down from 280--- > 133 - EKG/ echocardiogram: NAD - NSR on tele - Patient denies Exertional chest pain 4. Cognitive decline: - Chronic, has not been addressed previously - PT/OT: can be discharged to home 5.Hypothyroidism: - TSH: 8.5---< 4.5 in April, no recent changes in medication - TSH elevated in acute setting of illness; Repeat test in Outpatient. 6. Chronic issues: Asthma/ Chronic back pain/ Borderline hypertension/ Anxiety: Stable Total Time Total Time Spent Total Time Spent (In Minutes): <30 Discharge Plan Discharge Items Patient Disposition: Home - Self-Care Reason For Visit: NSTEMI, WEAKNESS Discharge Diagnosis: Fatigue Activity: Resume your previous activity Non-emergency contact: Primary Care Provider Call non-emergency contact if: you have any medication questions, your pain is concerning for you and your temperature is above 101.5 Follow-up/Referrals: Elvira Causey, [Primary Care Provider] - 06/27/24 3:00 pm (Hospital follow up scheduled June 27 at 3:00 with Gely Darnell) Diet: Regular Addtl Attending Provider Instructions: You were admitted to the hospital for fatigue. You were treated with fluids and got better. Your blood work including your counts, and kidney functions improved as well. All of your symptoms fit well to degree of your dehydration and poor nutritional intake. If you continue to ignore your intake after going back home, your symptoms will persist and lead you to road of more physical weakness, which will increase possibility of fall, progression in your memory issue and you will have no choice of living by yourself at home. Hence you are highly recommended to drink at least 60-80 ounces of fluids(preferably water, avoid sodas and coffees). Consistence in your healthy nutrition intake including protein, carbohydrate, fibres and good fat is valenzuela to your health right now. We may need to recheck your status at a point when you are not capable of doing as above. A discharge summary will be sent to your primary care physician to ensure continuity of care. Please bring this discharge summary with you to your next office appointment so that your provider can review it at that time. Follow-up appointments: * Make a follow-up appointment with your PCP within the next week. It is very important that you follow up with them shortly after discharge from the hospital. * Keep all your follow-up appointments as already scheduled. If you cannot make an appointment, notify your provider. Medications: Your medication list has been reviewed and reconciled upon discharge to ensure accuracy and continuity of care. An updated list of all your medications is included with your hospital discharge paperwork. Please review this list closely, and make note of any changes. * No medication changes were made during your visit. * If you have any issues with medications, please call [phone] and ask to leave a message for Dr. Bia Grace. * Take your medications as instructed; do not skip a dose of your medicines. Make sure all of your doctors know every medicine you are taking (including [id number] medicines, vitamins, and supplements). Call your primary care provider before taking any new medicines (including over- the-counter medicines, vitamins, and supplements), because some of these may interact with your current medications, or may make your symptoms worse. Tell your primary care provider if you cannot afford your medications. CONTACT YOUR PRIMARY CARE PROVIDER if you experience any of the following: * Worsening of symptoms * Fever, chills, or fatigue * Difficulty following your treatment plan, or difficulty taking medications CALL 911 OR GO TO THE EMERGENCY DEPARTMENT if you experience any of the following: * Sudden, severe abdominal pain or nausea/vomiting * Severe chest pain, or chest pain that radiates (moves) to your jaw or arm * Sudden, severe shortness of breath or difficulty breathing Thank you for allowing us to participate in your care. Pending Studies at Discharge: No Stand-Alone Forms: [facility], Sm[facility] Cess[facility] Medications and DC Order Prescriptions: Continued levothyroxine 50 mcg tablet 50 mcg PO QAM Qty: 90 2RF montelukast 10 mg tablet 10 mg PO QPM Qty: 30 11RF ipratropium-albuterol 0.5 mg-3 mg(2.5 mg base)/3 mL solution for nebulization 3 ml inhalation Q6H PRN (Reason: wheezing) Qty: 180 5RF hydrocortisone [Anti-Itch (HC)] 1 % cream 1 applic topical TID PRN (Reason: skin irritation) Qty: 28.4 1RF tizanidine 2 mg capsule 2 mg PO HS Qty: 90 3RF metoprolol succinate 25 mg tablet extended release 24 hr 12.5 mg PO DAILY Qty: 45 2RF Hold Instructions: check with [facility] cardiology levocetirizine 5 mg tablet 5 mg PO DAILY PRN (Reason: allergy symptoms) Qty: 30 3RF Rx Instructions: Take daily for 10 days then PRN (DME) Flutter Valve Device See Rx Instructions .MEDSUPPLY Qty: 1 0RF Rx Instructions: Use it every 6 hours when awake. Dulera 100-5 mcg/actuation HFA aerosol inhaler 2 inh inhalation BID Qty: 13 12RF levalbuterol tartrate [Xopenex HFA] 45 mcg/actuation HFA aerosol inhaler 2 inh INHALATION Q4H PRN (Reason: Shortness Of Breath) Qty: 15 4RF duloxetine 30 mg capsule,delayed release(DR/EC) 30 mg PO DAILY Qty: 30 5RF diclofenac sodium 1 % gel 2 g topical QID PRN (Reason: pain, moderate) Qty: 100 2RF Eliquis 2.5 mg Tablet 2.5 mg PO BID Qty: 60 0RF Saccharomyces siddii [Florastor] 250 mg capsule 250 mg PO QAM Rx Instructions: swallow whole amlodipine 2.5 mg tablet 2.5 mg PO DAILY Discharge Orders: Discharge Order (Routine); Ordered 06/22/24 Ordered By: Bia Márquez/Other Patient Handouts: Self-Care for Low Back Pain, Fall Prevention Assessing Risk, Falls Prevent Adjust Living Space Admission Data Admit Date/Time: 06/19/24 20:43 Attending Provider: Brendan Yao Admit Provider: Bijan Matias Primary Care Provider: Elvira Causey Other Interventions: Discharge Summary Assessment (RN) Last Done: 06/22/24 10:42 Supervising Physician Co-Signing Physician Notes I personally examined the patient and verified all valenzuela points of history and e xam, discussed case, and agree with decision making with Dr Grace feels ok and very much wants to go home vitals noted nad heent nc at mmm breathing unlabored no accessory muscles good effort weakness/lethargy - dehydration from poor PO intake; question ?mild viral illness (diffuse body aches, low grade CRP elevation, low grade temp) although dehydration and nonspecific reason for elevation of CRP could also explain the story. encourage PO fluids, follow clinically. KELSEY at [facility] -> improvement but still prerenal #'s here would fit with dehydration as well. improved, stable for discharge. elevated troponin - demand ischemia due to above. ekg nonacute, echo better than last on record, troponin dropped quickly elevated TSH - hard to tell how much from med nonadherence, and how much is euthyroid sick syndrome. keep on synthroid at current dosing, f/u TSH ~4wks afib - rate controlled, anticoagulated. otherwise as above PT/OT eval and treat, stable for home and appears to have capacity - at the same time, d/w pt quite frankly my concerns both yesterday and today (reiterated by dtr in group discussion yesterday) of pt not doing well taking care of herself and that she would likely be better off in care facility - but ultimately decision is hers. Resident Activity Tracking Resident Involvement: Resident Care Provided Care Provided: Adult [facility] Medicine
[2024-06-22 10:40] VITALS: PULSE 69
--- NOTE | 2024-06-22 13:04 | Billing Data ---
Date of Service June 22, 2024 Coding Level of Care Code 29811 IN/OBS DISCH 30 MIN/LESS
== END 2024-06-22 12:41 | disposition home or self-care (01) | DRG 641 ==
LOC: 2S 20:43 → SUATTDRO 20:43 → 2S 20:48